=== PATIENT | female | born 1965 | race Caucasian/White ===

== ENCOUNTER → 2017-11-13 12:36 | Outpatient (CLI) | payer OTHER, SELFPAY ==
--- NOTE | 2017-11-13 12:43 | STE_ITS ---
Reason For Study: Chest Pain Stress Results Protocol: Crescencio Protocol Maximum Predicted HR: 168 bpm Target HR: 143 bpm% Max imum Predicted HR: 98 % DurationHeart Rate Stage (mm:ss) (bpm) BP Baseline 82 122/80 Crescencio Protocol Stage I 3:00 12 9 120/76 Crescencio Protocol Stage II 3:00 15 3 130/74 Crescencio Protocol Stage III 3:00 16 4 142/72 Crescencio Protocol Stage IV 0:01 16 4 / Recovery 104 118/7 2 Stress Duration: 9:01 mm:ss Maximum Stress HR: 164 bpmM ETS: 10 Baseline Echocardiogram Findings Stress Echo Wall motion Data Resting WMIntermediate WMStress WM Resting Wall Motion Wall Motion Stress No regional wall motion No regional wall motion abnormalities noted. abnormalities noted. Ejection Fraction 55 %. Ejection Fraction 70 %. Stress Results Normal blood pressure response to exercise. Exercise was stopped due to fatigue. EKG Data Baseline ECG demonstrates normal sinus rhythm with a rate of 72 beats per minute. The patient exercised according to the regular Crescencio protocol for a total duration of 9 min. The maximum heart rate attained was 166 beats per minute. This was 98% of maximum predicted heart rate. The patient exercised into stage 3 of the Crescencio protocol. During stress, there were no ST or T wave changes noted to suggest ischemia. At peak exercise, upsloping ST changes only were noted, which did not meet the criteria for ischemia. The peak blood pressure was 142/72. No arrhythmias noted. No clinical angina was noted. Interpretation Summary Normal resting LV systolic function. Nonstenotic valves. With stress, the LV size decreased and all segments augmented normally. The LVEF increased from 55% to 70%. Negative for ischemia at 98% of MPHR and at 10.1 METS. Normal stress echo at a high workload Ordering Physician: Jonny Fuentes Referring Physician: Andreas Coker MD Performed By: Bozena Valle, RDKRISTINE, RVT
== END ==
PROVIDERS: Family Provider Student in an Organized Health Care Education/Training Program; PCP Student in an Organized Health Care Education/Training Program; Visit Provider Internal Medicine Cardiovascular Disease
DX: R07.9 Chest pain, unspecified (principal); R06.02 Shortness of breath
CPT/HCPCS: 93017; 93350

== ENCOUNTER 2018-08-10 20:35 | Observation (INO) | payer OTHER, SELFPAY ==
[2018-08-10 20:36] VITALS: BP 131/86; PULSE 68; RESP 14; TEMP 36.7; O2SAT 98; BMI 25.6
[2018-08-10] MEDS: 0.9% Normal Saline 1,000 ML 999 ML IV (21:05)
[2018-08-10] MEDS: Ondansetron 4 MG/2 ML Vial IV (21:06)
[2018-08-10] MEDS: Morphine 4 MG/ML Syringe IV (21:08)
[2018-08-10 21:28] LABS: Absolute Lymphocyte Count 2.37 X10^3/ul (0.83-4.51); Basophil# 0.02 X10^3/uL; Basophil% 0.2 % (0-1); Eosinophil# 0.04 X10^3/uL; Eosinophils% 0.4 % (0-5); Hematocrit 42.5 % (37-47); Hemoglobin 14.2 g/dl (12.0-15.0); Lymphocyte # 2.37 X10^3/ul (4.0); Lymphocyte % 23.3 % (19-41); Mean Corp Hgb Conc 33.4 g/gl (32-36); Mean Corpuscular Hgb 30.9 pg (27.0-32.0); Mean Corpuscular Volume 92.4 fL (81-99); Mean Platelet Vol. 10.1 fl (6.2-12.0); Monocyte# 0.69 X10^3/uL; Monocyte% 6.8 % (0-10); Neutrophil # 7.02 X10^3/uL (2.7-7.7); Neutrophil % 69.2 % (47-70); POSITIVE COUNT NO; POSITIVE DIFFERENTIAL NO; POSITIVE MORPHOLOGY NO; Platelet Count 222 K/mm3 (150-450); RBC Distribution Width CV 13.6 % (11.6-14.6); White Blood Count 10.2 K/mm3 (4.4-11.0)
[2018-08-10 21:38] LABS: Anion Gap 9 (5-15); BUN 24 mg/dL (7-18); BUN/Creat Ratio 20.2 RATIO (10-20); Chloride 109 mmol/L (98-107); Creatinine, Serum 1.19 mg/dL (0.55-1.02); EST Glomerular Filtration Rate 50 mL/min (>60); Est Glom Filt Rate - Afr Amer 61 mL/min (>60); Glucose 106 mg/dL (74-106); Potassium 3.4 mmol/L (3.5-5.1); Sodium Level 146 mmol/L (136-145)
--- NOTE | 2018-08-10 21:47 | CT_ITS ---
STUDY: CT ABDOMEN AND PELVIS WITHOUT CONTRAST REASON FOR EXAM: Female, 53 years old. Left flank pain. RADIATION DOSAGE (If Supplied By Facility): CTDIvol = ( 6.96 ) mGy, DLP = ( 337.28 ) mGycm TECHNIQUE: Transaxial images were obtained from the dome of the diaphragm to the symphysis pubis without oral contrast, and without intravenous contrast. Sagittal and coronal images were reconstructed. Individualized dose optimization techniques were used for this CT. COMPARISON: January 14, 2017. FINDINGS: The visualized lung bases are unremarkable. The visualized portions of the heart are within normal limits. Normal liver. Normal gallbladder and extrahepatic biliary system. Normal spleen. Normal pancreas. Normal bilateral adrenal glands. The right left kidney is of normal size and cortical thickness. There are multiple nonobstructing left renal calculi. The largest in the lower pole measures 3 mm. There is no hydronephrosis. Normal visualized right ureter. The left kidney is of normal size and cortical thickness spared there are multiple small renal calculi in the upper pole. The largest measures 3 mm in diameter. There is diffuse left hydronephrosis and ureterectasis to the left pelvic sidewall where there is an obstructing 6 x 4 x 3 mm stone (image 132, series 2). Normal visualized stomach. Normal small intestine. Normal colon. The appendix is visualized and appears normal. Normal abdominal aorta. Normal inferior vena cava. Normal retroperitoneum. Normal urinary bladder. Uterus is retroverted but otherwise unremarkable. Normal adnexa. There is no pelvic lymphadenopathy. No free air or free fluid is seen within the peritoneal cavity. Normal abdominal wall. There is a exaggeration of the lumbar lordosis is with anterolisthesis of L5 on S1 of 1.3 cm. There is evidence of bilateral pars defects. Mild degenerative changes are also noted at L3-4 and L4-5. CT/Abdomen/Pelvis without Cont IMPRESSION: 1. Large calcification in distal left ureter with obstructive uropathy. 2. Multiple small bilateral nonobstructing renal calculi. 3. No other evidence of abdominal or pelvic abnormality. 4. Stable marked degenerative changes of the lumbar spine. Electronically Signed: Julio C Case DO at 22:42 EST Tel [phone], Service support ,
[2018-08-10] MEDS: HYDROmorphone 1 MG/ML Syringe IV (21:54)
[2018-08-10 21:56] VITALS: BP 124/84; PULSE 75; RESP 16; O2SAT 99
--- NOTE | 2018-08-10 23:10 | ED.DCSUM_ITS ---
- ER Visit Summary Date of Service: 08/10/18 Chief Complaint: Flank pain History of Present Illness: The patient is a 53 F with history of migraines and kidney stones presents to the emergency department flank pain. Patient states her symptoms began on Thursday. She states that she had intermittent pain in her left flank. She states that it acutely worsened tonight. She had nausea and vomiting. She states she cannot get comfortable. She denies any fevers or chills. She denies any dysuria. The patient has had prior stones requiring lithotripsy and stenting. She does see Dr. Brothers. Physical Examination: Vital signs reviewed General: Well-nourished, well-developed Head: Normocephalic, atraumatic Eyes: Pupils equal and reactive, extraocular muscles intact Neck, supple, no lymphadenopathy Heart: Regular rate and rhythm Respiratory: No distress, clear bilaterally Abdomen: Soft, nontender, nondistended, no peritoneal signs Back: Nontender Extremities: Nontender, no edema, no cords Skin: Normal color no rash Neuro: Alert and oriented, no focal or lateralizing deficits Test Results: [] Emergency Department Course and Treatment: IV was established. Patient was given analgesics and antiemetics. She did have some improvement of pain. Screening labs are relatively unremarkable. Patient underwent CT of the abdomen pelvis. This does demonstrate a 6 mm distal obstructing stone in the left. The patient a return of pain. She was given more analgesics but was still uncomfortable. The patient has required stenting and lithotripsy in the past. She is still uncomfortable with large obstructing stone, I do feel the patient will require admission. She was discussed with Dr. Brothers who agrees a plan of care. The patient will be admitted. Treatment Plan: [] Disposition: Admission Impression: 6 mm left-sided obstructing urolithiasis This note was generated with [employer] dictation software. It may contain incorrect words, spelling, and punctuation that were not noted in review of the chart prior to signing ED Disposition - Plan for ED Patient: Chief Complaint: Flank Pain Referrals: Jey Arthur DO [Primary Care Provider] -
[2018-08-10 23:29] LABS: Mucous, Urine 0 SEEN /hpf (<or=2+); Red Blood Cells-Urine 0 SEEN /hpf (0-5)
[2018-08-10 23:34] LABS: Color, Urine Yellow (Yellow); Glucose, Dipstick Normal (Normal); Ketone-Dipstick 5 mg/dl (Negative); Leukocyte Esterase-Dipstick 500 /ul (Negative); Nitrite-Dipstick Negative (Negative); Occult Blood-Urine 25 /ul (Negative); Protein-Dipstick 15 mg/dl (Negative); Urine Bilirubin Dipstick Negative (Negative); Urine Clarity Sl. Cloudy (Clear); Urine Urobilinogen Normal (Normal); Urine pH 6.5 (5.0 - 8.0)
[2018-08-10 23:37] VITALS: BP 113/74; PULSE 80; RESP 14; O2SAT 97
[2018-08-10 23:38] VITALS: BP 113/74; PULSE 80; RESP 16; TEMP 36.6; O2SAT 97
[2018-08-10 23:42] LABS: Squamous Epithelial Cells - UA 0-5 SEEN /hpf (5-10); White Blood Cells 10-25 SEEN /hpf (0-5)
[2018-08-10 23:43] LABS: Bacteria 1+ /hpf (None Seen)
[2018-08-11] VITALS (9 sets, daily range): BP systolic 101–126; BP diastolic 63–82; PULSE 64–87; RESP 12–16; TEMP 36–37.1; O2SAT 92–99; BMI 25.9
[2018-08-11] MEDS: 0.9% Normal Saline 1,000 ML 100 ML IV (01:06)
[2018-08-11] MEDS: 0.9% NaCl Peripheral Flush Adult/Peds IV (01:07)
[2018-08-11] MEDS: Ketorolac 15 MG/ML Vial IV (05:18)
--- NOTE | 2018-08-11 07:10 | CALC_PTH ---
PATIENT: RACHNA KHAN LOC: [facility] U#:[id number] AGE/SX: 53/F ROOM: NH313 RE08/10/[address]: Dr. Jerry Brothers MD : 1965 BED: 1 DIS: 08/11/2018 SPEC #: [id number] RECD: 08/11/18 14:36 STATUS: SAIGE REGarrick #: [id number] PHILIP: 08/11/18 07:[address]: Jerry Brothers DEPT: SURGICAL PATHOLOGY RECD BY: Donald Hinojosa ENTERED: 08/12/18 12:49 SP TYPE: Calculi OTHR DR: Dr. Jey Arthur, DO Tissues: CALCULI Procedures: Surgery Specimen Level I HEADER OPERATION: Cysto, ureteroscopy, balloon dilation, laser, basket extraction PRE-OP DIAGNOSIS: Left ureteral calculi TISSUE SUBMITTED: Left ureteral calculi GROSS DIAGNOSIS Fragments of stones, clinically left ureteral calculi, submitted entirely for analysis. SJ:fede 08/13/18 COMMENT The calculus is submitted in its entirety for chemical stone analysis. The results from this study will be reported separately. GROSS DESCRIPTION Received in fixative is one container labeled with the patient's name and designated left ureteral calculus. The specimen consists of multiple irregular fragments of light elliott calculi that in aggregate measure 0.5 x 0.2 x 0.1 cm. The fragments are submitted in their entirety for chemical stone analysis. / AM:fede 08/12/18 CPT: 52873
--- NOTE | 2018-08-11 07:27 | PCM.HP.STD ---
Problem List (1) Left ureteral calculus Status: Acute Comment: admitted for pain control large obstruction stone in left ureter History of Present Illness Date of Admission: 08/11/18 Chief Complaint: Left flank pain from left ureteral calculi The patient is a 53 year old female with a large obstruction ureteral calculi admitted for pain control, npo, plan to take to surgery today for ureteroscopy laser stone, possible stent? Past Medical History Allergies No Known Allergies Allergy (Verified 08/10/18 20:40) Home Medications: Ambulatory Orders Medication Instructions Recorded Aspirin [Aspirin, Baby] 81 mg PO QHS 01/15/17 Atorvastatin Calcium 20 mg PO QHS 01/15/17 Cholecalciferol (Vitamin D3) 1,000 unit PO QHS 01/15/17 [Vitamin D3] Magnesium 400 mg PO QHS 01/15/17 Rizatriptan Benzoate [Rizatriptan] 10 mg PO PRN PRN 01/15/17 Sumatriptan Succinate [Imitrex] 100 mg PO PRN PRN 01/15/17 Zonisamide [Zonegran] 300 mg PO DAILY 01/15/17 Verapamil HCl [Verapamil ER] 180 mg PO DAILY 08/11/18 Surgical History: noncontributory Psychiatric History: No pertinent psych hx 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 Smoking Status: Never smoker Tobacco Use: Non-smoker Alcohol: None Drugs: None - *Family History Maternal History Items: No pertinent history Review of Systems Constitutional: Denies: Chills, Fever, Weight Change HEENT: Denies: Head Aches, Sinus Congestion, Sinus Drainage Cardiovascular: Denies: Chest Pain, Palpitations Respiratory: Denies: Cough, Shortness of breath at rest, Sputum production Gastrointestinal: Denies: Abdominal Pain, Nausea, Vomiting Genitourinary: Denies: Dysuria Musculoskeletal: Denies: Joint Pain, Joint Tenderness Skin: Denies: Rash, Wounds Neurological: Denies: Numbness, Tingling, Focal weakness Psychiatric: Denies: Anxiety, Depression, Homicidal Ideations, Suicidal Ideations Hematologic/ Lymphatic: Denies: Easy Bruising, Easy Bleeding VTE Information - Inpt Only VTE Present on Admission: No VTE Mechan Device Prophylaxis: SCD's Patient Problems: Active and Suspected Problems Left ureteral calculus (Acute) admitted for pain control large obstruction stone in left ureter - Physical Exam General: Alert, Oriented x3, Cooperative HEENT: Atraumatic, PERRLA, EOMI, Normocephalic Neck: Supple, No JVD, Negative Carotid Bruits Lungs: Clear to auscultation, Normal air movement Cardiovascular: Regular rate, No murmurs Abdomen: Bowel Sounds Present, Soft, Non Tender Extremities: No edema, Capillary Refill Less than 3 Seconds Skin: No rashes, No breakdown Musculoskeletal: No Tenderness to Palpation of Joints or Extremities Neurological: Cranial nerves II-XII grossly intact Psych/Mental Status: Normal Affect, Appropriate Vital Signs Temp Pulse Resp BP Pulse Ox 98.6 F 65 12 111/64 92 08/11/18 05:11 08/11/18 05:11 08/11/18 05:11 08/11/18 05:11 08/11/18 05:11 Oxygen Flow Rate (L/min) 992 Oxygen Delivery Method Room Air Weight: 70.7 kg Body Mass Index (BMI) 25.9 Intake and Output for Last 24 Hours 08/09/18 08/10/18 08/11/18 23:59 23:59 23:59 Intake Total 478 / 478 Output Total 475 / 475 Balance 3 / 3 Laboratory Tests Past 24 Hrs 08/10/18 08/10/18 08/10/18 20:52 20:52 23:23 WBC 10.2 RBC 4.60 Hgb 14.2 Hct 42.5 MCV 92.4 MCH 30.9 MCHC 33.4 RDW 13.6 RDW Differential 46.0 H Plt Count 222 MPV 10.1 Immature Gran % (Auto) 0.100 Neut % (Auto) 69.2 Lymph % (Auto) 23.3 [place] % (Auto) 6.8 Eos % (Auto) 0.4 Baso % (Auto) 0.2 Absolute Neuts (auto) 7.0 Absolute Lymphs (auto) 2.37 Total Counted Not Reportable Sodium 146 H Potassium 3.4 L Chloride 109 H Carbon Dioxide 28.0 Anion Gap 9 BUN 24 H Creatinine 1.19 H Estim Creat Clear Calc 49.20 Est GFR (MDRD) Af Amer 61 Est GFR (MDRD) Non-Af 50 L BUN/Creatinine Ratio 20.2 H Glucose 106 Calcium 10.0 Urine Color Yellow Urine Clarity Sl. Cloudy Urine pH 6.5 Ur Specific Malott 1.020 Urine Protein 15 H Urine Glucose (UA) Normal Urine Ketones 5 H Urine Occult Blood 25 H Urine Nitrite Negative Urine Bilirubin Negative Urine Urobilinogen Normal Ur Leukocyte Esterase 500 H Urine RBC 0 SEEN Urine WBC 10-25 SEEN Ur Squamous Epith Cells 0-5 SEEN Urine Bacteria 1+ Urine Mucus 0 SEEN Assessment/Plan All Active Problems Left ureteral calculus (Acute) Admit for pain control plan to take to surgery today for laser and removal of stone if patient consents to procedure.
[2018-08-11] MEDS: Morphine 2 MG/ML Syringe IV (10:35)
[2018-08-11] MEDS: Lubricating Jelly 60 GM Tube 30 GM TOPICAL (11:25)
--- NOTE | 2018-08-11 11:28 | DCINST_ITS ---
Discharge Diet: Light diet - advance as tolerated Discharge Activity: Return to Normal Activity, May Shower Call your doctor if you observe: Fever of 101 or Higher Instructions: Treating Kidney Stones: Ureteroscopic Stone Removal Allergies/Adverse Reactions: Allergies No Known Allergies Allergy (Verified 08/10/18 20:40) Medications to take at Discharge Aspirin [Aspirin, Baby] 81 mg PO QHS 01/15/17 Atorvastatin Calcium 20 mg PO QHS 01/15/17 Cholecalciferol (Vitamin D3) [Vitamin D3] 1,000 unit PO QHS 01/15/17 Magnesium 400 mg PO QHS 01/15/17 Rizatriptan Benzoate [Rizatriptan] 10 mg PO PRN PRN 01/15/17 Sumatriptan Succinate [Imitrex] 100 mg PO PRN PRN 01/15/17 Zonisamide [Zonegran] 300 mg PO DAILY 01/15/17 Acetaminophen [Tylenol Extra Strength] 500 mg PO Q4H PRN PRN #20 tablet 08/11/18 Ibuprofen 600 mg PO Q6H PRN PRN #20 tablet 08/11/18 Verapamil HCl [Verapamil ER] 180 mg PO DAILY 08/11/18 The following prescriptions were given: Acetaminophen [Tylenol Extra Strength] 500 mg PO Q4H PRN PRN #20 tablet PRN Reason: Pain Ibuprofen 600 mg PO Q6H PRN PRN #20 tablet PRN Reason: Pain Primary Care Physician: Jey Arthur DO [Primary Care Provider] - Test Results: Test results from this visit will be discussed in further detail at your follow- up appointment, if applicable. Please Follow Up With: Jerry Brothers MD When: in 2 weeks, please call to make an appointment.
[2018-08-11] MEDS: Cefazolin 1 GM/50 ML BAG IV (11:40)
--- NOTE | 2018-08-11 11:46 | PCM.OPRPT ---
Problem List (1) Left ureteral calculus Status: Acute Comment: admitted for pain control large obstruction stone in left ureter Report of Operation Date of Procedure: 08/11/18 Pre-Operative Diagnosis: Left obstructive ureteral calculi Post-Operative Diagnosis: Same Surgery/Procedure Performed:: Cystoscopy, balloon dilation of the left ureter, left ureteroscopy laser lithotripsy of stone and basket of fragments. No stent Description of Surgical Findings:: 53-year-old female who presents to the hospital obstructing stone severe pain today we plan to take her to the operating room for ureteroscopy laser lithotripsy of the stone. 53-year-old male taken back to the operating room after smooth induction of anesthesia she placed in dorsolithotomy position the urethra vaginal area prepped and draped in usual sterile fashion went to the bladder with a 21 Yoruba rigid cystourethroscope the urethra was normal the trigone was normal the entire bladder was normal no tumors or stones seen within the bladder I think cannulated the left ureteral orifice with a Glidewire advanced beyond the stone and then next the wire I went in with the balloon dilator balloon dilated the distal ureter and then after this I was able to get into the ureter with the ureteroscope and encountered the stone and laser the stone little tiny pieces using 200 ?m laser fiber energy settings were 6 Hz and 0.6 J stone laser little tiny pieces I then used a tipless basket and extracted the fragments of the distal ureter drained the bladder the ureter was draining nicely and therefore it did not leave a stent drain the bladder anesthesia was reversed taken back to PACU good condition. Type of Anesthesia:: General Drains: none - Admit VTE Documentation VTE Present on Admission: No VTE Mechan Device Prophylaxis: SCD's
[2018-08-31 12:06] LABS: Ca Oxalate, Dihydrate 15 % (.); Ca Oxalate, Monohydrate 45 % (.); Calcium Phosphate 40 % (.)
--- OUTSIDE RECORDS SUMMARY | 2018-11-12 06:28 | XMS RPT_ITS ---
:1965 Author Organization OHIP Care Team Providers Name Role Phone Jey Marmolejo Primary Care Unavailable Jerry Brothers Admitting Unavailable Jerry Brothers Attending Unavailable Andreas Coker Attending Unavailable Jonny Jessica Referring Unavailable Jonny Jessica Attending Unavailable Jey Marmolejo Primary Care Unavailable Hershey, Jonny Referring Unavailable Jerry Brothersuel Attending Unavailable Jerry Brothers Referring Unavailable Marmolejo, Jey Primary Care Unavailable JASKARAN, JONNY E Attending Unavailable MARMOLEJO, JEY L Referring Unavailable JASKARAN, JONNY E Referring Unavailable JASKARAN, JONNY E Attending Unavailable JASKARAN, JONNY E Referring Unavailable KARSON CAMPBELL Attending Unavailable ARISTEO OLMEDO Attending Unavailable MARMOLEJO, JEY L Referring Unavailable CORNIELLO, PATTI L (MEETING SPECIALIST) Referring Unavailable CORNIELLO, PATTI L (MEETING SPECIALIST) Attending Unavailable JASKARAN, JONNY Attending Unavailable MARMOLEJO, JEY L Referring Unavailable MARMOLEJO, JEY L Primary Care Unavailable JASKARAN, JONNY Referring Unavailable MARMOLEJO, JEY L Primary Care Unavailable JASKARAN, JONNY Attending Unavailable JASKARAN, JONNY Referring Unavailable MARMOLEJO, JEY L Primary Care Unavailable JASKARAN, JONNY Attending Unavailable JASKARAN, JONNY Referring Unavailable MARMOLEJO, JEY L Primary Care Unavailable PROBLEMS PROBLEMS DATE TYPE CONDITION / CODE ATTENDING STATUS SOURCE 09/02/2018 Unknown N39.0 - Urinary tract Jerry Brothers Active [facility] infection, site not [facility] specified / Hospital N39.0(ICD-10) Repository 06/11/2018 Active Encounter for NA Active [place] [facility] for malignant [place] neoplasm of breast / Repository Z12.31(ICD-10) 12/09/2017 Unknown R07.9 - Chest pain, John Paul, Bailey Active [facility] unspecified / Community R07.9(ICD-10) Hospital Repository 11/13/2017 Unknown R06.02 - Shortness of Hershey, Active [facility] breath / Jonny Community R06.02(ICD-10) Hospital Repository 10/22/2017 Active Unknown / NA Active [facility] UNK(Unknown) [facility] [place] Repository 10/21/2017 Active Chest pain, JASKARAN, Active [facility] unspecified / JONNY E Clinic Other R07.9(ICD-10) [place] Repository 10/21/2017 Active Shortness of breath / JASKARAN, Active [facility] R06.02(ICD-10) JONNY E Clinic Other [place] Repository 09/18/2017 Active Supraventricular JASKARAN, Active [facility] tachycardia / JONNY E Clinic Other I47.1(ICD-10) [place] Repository 09/18/2017 Active Other chest pain / JASKARAN, Active [facility] R07.89(ICD-10) [facility] Other [place] Repository 09/18/2017 Admitting Unknown / JASKARAN, Active [facility] diagnosis UNK(Unknown) [facility] Repository PROCEDURES PROCEDURES No Procedure Records FoundRESULTS RESULTS Observed: 09/02/2018 Status: F Source: [facility] CULTURE, URINE 4:30 PM [facility] REPOSITORY Urine Culture Culture exhibits no growth. Performed By: #### M100.0650 #### [facility] [address] [place], [address] CALCULI, URINARY W / Collected: 08/23/2018 Status: F Source: [facility]YUSH PHOTO 1:10 PM [facility] REPOSITORY Order Comment: Comments: LEFT URETERAL CALCULI TYPE CODE TESTS RESULT OUT OF RANGE REFERENCE UNITS LAB L3650.0200 . Normal COLOR Elliott LAB L3650.0300 . mm Normal SIZE Comment Result Comment: Specimen received as fragments. LAB L3650.0400 . mg Normal WEIGHT 13.0 LAB L3650.0500 . Normal . Comment Result Comment: Percentage (Represents the % composition) LAB L3650.0600 . % CA OXAL DIHYDR 15 Normal LAB L3650.0700 . % CA OXAL 45 Normal [place]YD LAB L3650.0800 . % CA PHOSPHATE 40 Normal LAB L3650.0900 . MAG EAMON PHOS Test not Normal performed LAB L3650.1000 . URIC ACID Test not Normal performed LAB L3650.1100 . URIC ACID Test not Normal DIHYD performed LAB L3650.1200 . AMM ACID URATE Test not Normal performed LAB L3650.1300 . NA ACID URATE Test not Normal performed LAB L3650.1400 . CA HYDROG PHOS Test not Normal performed LAB L3650.1500 . CYSTINE Test not Normal performed LAB L3650.1600 . CHOLESTEROL Test not Normal performed LAB L3650.1700 . CA Test not Normal BILIRUBINATE performed LAB L3650.1800 . CA CARBONATE Test not Normal performed LAB L3650.1900 . TRIAMTERENE Test not Normal performed LAB L3650.2000 . NEWBERYITE Test not Normal performed LAB L3650.2100 . DRIED BLOOD Test not Normal performed LAB L3650.2200 . CELL MATERIAL Test not Normal performed LAB L3650.2250 . NIDUS No Nidus Normal visualized LAB L3650.2325 . SHELL Test not Normal performed LAB L3650.2350 . SURFACE Test not Normal CRYSTAL performed LAB L3650.2400 . COMMENT Test not Normal performed LAB L3650.2500 . COMMENT Test not Normal performed LAB L3650.2600 . PHOTO Comment Normal Result Comment: Photograph will follow under separate cover. LAB L3650.2700 . Normal COMMENT Comment Result Comment: Physician questions regarding Calculi Analysis contact [employer] at: [phone]. LAB L3650.2800 . Normal COMMENT Comment Result Comment: Calculi report with photograph will follow via computer, mail or soil science technical officer delivery. LAB L3650.2900 . Normal Disclaimer Comment Result Comment: This test was developed and its performance characteristics determined by [employer]. It has not been cleared or approved by the Food and Drug Administration. Performed at: [address] [id number] Product Manager Financial Services: Shahrzad Salter MD, Phone: [phone] Performed By: #### L3650.0100 #### [facility] (refer to report for specific site) refer to report for address and phone number OPERATIVE REPORT Observed: 08/11/2018 Status: F Source: FORBES 11:48 AM [facility] REPOSITORY [facility] Medical Records Department [address] [place] [address] Operative Report 08/11/18 1146 MR#: [id number] Acct: [id number] Name: RACHNA KHAN Nicanor Rep #: [id number] : 1965 53 From: Jerry Brothers MD PCP: Jey Siegel DO Status: ADM LANIE Y Location: [place] [id number] Problem List (1) Left ureteral calculus Status: Acute Comment: admitted for pain control large obstruction stone in left ureter Report of Operation Date of Procedure: 08/11/18 Pre-Operative Diagnosis: Left obstructive ureteral calculi Post-Operative Diagnosis: Same Surgery/Procedure Performed:: Cystoscopy, balloon dilation of the left ureter, left ureteroscopy laser lithotripsy of stone and basket of fragments. No stent Description of Surgical Findings:: 53-year-old female who presents to the hospital obstructing stone severe pain today we plan to take her to the operating room for ureteroscopy laser lithotripsy of the stone. 53-year-old male taken back to the operating room after smooth induction of anesthesia she placed in dorsolithotomy position the urethra vaginal area prepped and draped in usual sterile fashion went to the bladder with a 21 Azeri rigid cystourethroscope the urethra was normal the trigone was normal the entire bladder was normal no tumors or stones seen within the bladder I think cannulated the left ureteral orifice with a Glidewire advanced beyond the stone and then next the wire I went in with the balloon dilator balloon dilated the distal ureter and then after this I was able to get into the ureter with the ureteroscope and encountered the stone and laser the stone little tiny pieces using 200 m laser fiber energy settings were 6 Hz and 0.6 J stone laser little tiny pieces I then used a tipless basket and extracted the fragments of the distal ureter drained the bladder the ureter was draining nicely and therefore it did not leave a stent drain the bladder anesthesia was reversed taken back to PACU good condition. Type of Anesthesia:: General Drains: none - Admit VTE Documentation VTE Present on Admission: No VTE Mechan Device Prophylaxis: SCD's 08/11/18 1148 <Electronically signed by Jerry Brothers MD> Date Jerry Brothers MD CC: Jey Siegel DO; Jerry Brothers MD Signed DISCHARGE INSTRUCTION Observed: 08/11/2018 Status: F Source: FORBES 11:28 AM [facility] Medical Records Department [address] [place] [address] Instructions for Home/Discharge Instructions 08/11/18 1127 MR#: [id number] Acct: [id number] Name: RACHNA KHAN Rep #: [id number] : 1965 53 From: Jerry Brothers MD PCP: Jey Siegel DO Status: ADM LANIE Discharge Diet: Light diet - advance as tolerated Discharge Activity: Return to Normal Activity, May Shower Call your doctor if you observe: Fever of 101 or Higher Instructions: Treating Kidney Stones: Ureteroscopic Stone Removal Allergies/Adverse Reactions: Allergies No Known Allergies Allergy (Verified 08/10/18 20:40) Medications to take at Discharge Aspirin [Aspirin, Baby] 81 mg PO QHS 01/15/17 Atorvastatin Calcium 20 mg PO QHS 01/15/17 Cholecalciferol (Vitamin D3) [Vitamin D3] 1,000 unit PO QHS 01/15/17 Magnesium 400 mg PO QHS 01/15/17 Rizatriptan Benzoate [Rizatriptan] 10 mg PO PRN PRN 01/15/17 Sumatriptan Succinate [Imitrex] 100 mg PO PRN PRN 01/15/17 Zonisamide [Zonegran] 300 mg PO DAILY 01/15/17 Acetaminophen [Tylenol Extra Strength] 500 mg PO Q4H PRN PRN #20 tablet 08/11/18 Ibuprofen 600 mg PO Q6H PRN PRN #20 tablet 08/11/18 Verapamil HCl [Verapamil ER] 180 mg PO DAILY 08/11/18 The following prescriptions were given: Acetaminophen [Tylenol Extra Strength] 500 mg PO Q4H PRN PRN #20 tablet PRN Reason: Pain Ibuprofen 600 mg PO Q6H PRN PRN #20 tablet PRN Reason: Pain Primary Care Physician: Jey Marmolejo DO [Primary Care Provider] - Test Results: Test results from this visit will be discussed in further detail at your follow-up appointment, if applicable. Please Follow Up With: Jerry Brothers MD When: in 2 weeks, please call to make an appointment. 08/11/18 1128 <Electronically signed by Jerry Brothers MD> Date Jerry Brothers MD CC: Jey Siegel DO HISTORY AND PHYSICAL Observed: 08/11/2018 Status: F Source: AYUSH EXAM 7:30 AM [facility] REPOSITORY [facility] Medical Records Department [address] [place] [address] History and Physical 08/11/18 0727 MR#: [id number] Acct: [id number] Name: BILLRACHNA L Rep #: [id number] : 1965 53 From: Jerry Brothers MD PCP: Jey Siegel, DO Status: ADM LANIE Y Location: MS3 [id number] Problem List (1) Left ureteral calculus Status: Acute Comment: admitted for pain control large obstruction stone in left ureter History of Present Illness Date of Admission: 08/11/18 Chief Complaint: Left flank pain from left ureteral calculi The patient is a 53 year old female with a large obstruction ureteral calculi admitted for pain control, npo, plan to take to surgery today for ureteroscopy laser stone, possible stent? Past Medical History Allergies No Known Allergies Allergy (Verified 08/10/18 20:40) Home Medications: Ambulatory Orders Medication Instructions Recorded Aspirin [Aspirin, Baby] 81 mg PO QHS 01/15/17 Surgical History: noncontributory Psychiatric History: No pertinent psych hx INSURANCE APPRAISER History: No pertinent INSURANCE APPRAISER history Smoking Status: Never smoker Tobacco Use: Non-smoker Alcohol: None Drugs: None - *Family History Maternal History Items: No pertinent history Review of Systems Constitutional: Denies: Chills, Fever, Weight Change HEENT: Denies: Head Aches, Sinus Congestion, Sinus Drainage Cardiovascular: Denies: Chest Pain, Palpitations Respiratory: Denies: Cough, Shortness of breath at rest, Sputum production Gastrointestinal: Denies: Abdominal Pain, Nausea, Vomiting Genitourinary: Denies: Dysuria Musculoskeletal: Denies: Joint Pain, Joint Tenderness Skin: Denies: Rash, Wounds Neurological: Denies: Numbness, Tingling, Focal weakness Psychiatric: Denies: Anxiety, Depression, Homicidal Ideations, Suicidal Ideations Hematologic/ Lymphatic: Denies: Easy Bruising, Easy Bleeding VTE Information - Inpt Only VTE Present on Admission: No VTE Mechan Device Prophylaxis: SCD's Patient Problems: Active and Suspected Problems Left ureteral calculus (Acute) admitted for pain control large obstruction stone in left ureter - Physical Exam General: Alert, Oriented x3, Cooperative HEENT: Atraumatic, PERRLA, EOMI, Normocephalic Neck: Supple, No JVD, Negative Carotid Bruits Lungs: Clear to auscultation, Normal air movement Cardiovascular: Regular rate, No murmurs Abdomen: Bowel Sounds Present, Soft, Non Tender Extremities: No edema, Capillary Refill Less than 3 Seconds Skin: No rashes, No breakdown Musculoskeletal: No Tenderness to Palpation of Joints or Extremities Neurological: Cranial nerves II-XII grossly intact Psych/Mental Status: Normal Affect, Appropriate Vital Signs Temp Pulse Resp BP Pulse Ox 98.6 F 65 12 111/64 92 08/11/18 05:11 08/11/18 05:11 08/11/18 05:11 08/11/18 05:11 08/11/18 05:11 Oxygen Flow Rate (L/min) 992 Oxygen Delivery Method Room Air Weight: 70.7 kg Body Mass Index (BMI) 25.9 Intake and Output for Last 24 Hours Intake Total 478 / 478 Output Total 475 / 475 Balance 3 / 3 Laboratory Tests Past 24 Hrs Assessment/Plan All Active Problems Left ureteral calculus (Acute) Admit for pain control plan to take to surgery today for laser and removal of stone if patient consents to procedure. 08/11/18 0730 <Electronically signed by Jerry Brothers MD> Date Jerry Brothers MD Cosigner Signature: Date (if applicable) CC: Jey Siegel DO; Jerry Brothers MD Signed CALCULI/STONE Observed: 08/11/2018 Status: F Source: FORBES 7:10 AM [facility] REPOSITORY Patient: RACHNA KHAN : 1965 (53/F) Acct Num: [id number] Phys: Deneen DOCKERY,Jerry Davalos Unit Num: [id number] Loc: MS3 [id number] Specimen: [id number] Received: 08/11/18 1436 Spec Type: Calculi TISSUES 1 TISSUES: CALCULI COMMENT The calculus is submitted in its entirety for chemical stone analysis. The results from this study will be reported separately. GROSS DIAGNOSIS Fragments of stones, clinically left ureteral calculi, submitted entirely for analysis. SJ:fede 08/13/18 GROSS DESCRIPTION Received in fixative is one container labeled with the patient's name and designated left ureteral calculus. The specimen consists of multiple irregular fragments of light elliott calculi that in aggregate measure 0.5 x 0.2 x 0.1 cm. The fragments are submitted in their entirety for chemical stone analysis. / AM:rg 08/12/18 CPT: 08042 HEADER OPERATION: Cysto, ureteroscopy, balloon dilation, laser, basket extraction PRE-OP DIAGNOSIS: Left ureteral calculi TISSUE SUBMITTED: Left ureteral calculi Signed Marco Antonio Ferreira MD 08/13/18 <signature on file> Performed By: #### PCALC #### [facility] Laboratory [address] [facility] [place], [address] EMERGENCY DEPARTMENT Observed: 08/10/2018 Status: F Source: FORBES SUMMARY 11:31 PM [facility] REPOSITORY [facility] Medical Records Department [address] [facility] [place] [address] Emergency Department Summary 08/10/18 2309 MR#: [id number] Acct: [id number] Name: RACHNA KHAN Rep #: [id number] : 1965 53 From: Chris Prajapati MD PCP: Jey Siegel DO Status: REG ER - ER Visit Summary Date of Service: 08/10/18 Chief Complaint: Flank pain History of Present Illness: The patient is a 53 F with history of migraines and kidney stones presents to the emergency department flank pain. Patient states her symptoms began on Thursday. She states that she had intermittent pain in her left flank. She states that it acutely worsened tonight. She had nausea and vomiting. She states she cannot get comfortable. She denies any fevers or chills. She denies any dysuria. The patient has had prior stones requiring lithotripsy and stenting. She does see Dr. Brothers. Physical Examination: Vital signs reviewed General: Well-nourished, well-developed Head: Normocephalic, atraumatic Eyes: Pupils equal and reactive, extraocular muscles intact Neck, supple, no lymphadenopathy Heart: Regular rate and rhythm Respiratory: No distress, clear bilaterally Abdomen: Soft, nontender, nondistended, no peritoneal signs Back: Nontender Extremities: Nontender, no edema, no cords Skin: Normal color no rash Neuro: Alert and oriented, no focal or lateralizing deficits Test Results: [] Emergency Department Course and Treatment: IV was established. Patient was given analgesics and antiemetics. She did have some improvement of pain. Screening labs are relatively unremarkable. Patient underwent CT of the abdomen pelvis. This does demonstrate a 6 mm distal obstructing stone in the left. The patient a return of pain. She was given more analgesics but was still uncomfortable. The patient has required stenting and lithotripsy in the past. She is still uncomfortable with large obstructing stone, I do feel the patient will require admission. She was discussed with Dr. Brothers who agrees a plan of care. The patient will be admitted. Treatment Plan: [] Disposition: Admission Impression: 6 mm left-sided obstructing urolithiasis This note was generated with [employer] dictation software. It may contain incorrect words, spelling, and punctuation that were not noted in review of the chart prior to signing ED Disposition - Plan for ED Patient: Chief Complaint: Flank Pain Referrals: Jey Marmolejo, DO [Primary Care Provider] - What to do if you have Problems For any increased pain, shortness of breath, bleeding, nausea or vomiting, chest pain, or any unexpected problems, contact your Primary Care Provider. Call [facility] ([phone]) or report to the closest Emergency Room. Call 911 if necessary. 08/10/18 0191 <Electronically signed by Chris Prajapati MD> Date Chris Prajapati MD Cosigner Signature (If Indicated): Date CC: Jey Siegel DO URINALYSIS, COMPLETE Collected: 08/10/2018 Status: F Source: AYUSH 11:23 PM [facility] REPOSITORY Order Comment: Order Date: 08/10/18 How was Urine Obtained? CLEAN CATCH TYPE CODE TESTS RESULT OUT OF RANGE REFERENCE UNITS LAB L400.3000 Yellow COLOR Normal Yellow LAB L400.3050 Clear Normal CLARITY Sl. Cloudy LAB L400.3200 Normal mg/dl Normal GLUCOSE, UR Normal LAB L400.3300 Negative mg/dL Normal BILIRUBIN URINE Negative LAB L400.3400 Negative mg/dl High 5 KETONE UR LAB L400.3465 1.002-1.030 Normal SP.GR. DIPSTX 1.020 LAB L400.3550 5.0 - 8.0 pH UR Normal 6.5 LAB L400.3600 Negative mg/dl High PROT 15 DIPSTX LAB L400.3700 Normal mg/dl Normal UROBILI Normal LAB L400.3750 Negative Normal NITRITE UR Negative LAB L400.3780 Negative /ul High 25 OCCULT BLOOD-UR LAB L400.3800 Negative /ul High LEUK ESTERASE 500 LAB L400.4050 0-5 /hpf WBC Normal 10-25 SEEN LAB L400.4100 0-5 /hpf 0 Normal RBC-UA SEEN LAB L400.4150 5-10 /hpf SQUAM Normal EPI 0-5 SEEN LAB L400.4300 None Seen /hpf 1+ Normal BACTERIA LAB L400.4350 <or=2+ /hpf 0 Normal MUCUS, URINE SEEN Performed By: #### L400.0001 #### [facility] Laboratory [address] [facility] [place], [address] ABDOMEN/PELVIS WITHOUT Observed: 08/10/2018 Status: F Source: FORBES CONT 9:48 PM [facility] REPOSITORY [facility] Imaging Services [address] [place] [address] Abdomen/Pelvis without Cont MR#: [id number] Acct: [id number] Name: RACHNA KHAN Rep #: [id number] : 1965 F 53 From: Julio C Case DO PCP: Jey Siegel DO Status: REG ER Study: Abdomen/Pelvis without Cont Date of Exam: 08/10/18 Exam# [id number] Ordering Dr: Chris Prajapati MD STUDY: CT ABDOMEN AND PELVIS WITHOUT CONTRAST REASON FOR EXAM: Female, 53 years old. Left flank pain. RADIATION DOSAGE (If Supplied By Facility): CTDIvol = ( 6.96 ) mGy, DLP = ( 337.28 ) mGycm TECHNIQUE: Transaxial images were obtained from the dome of the diaphragm to the symphysis pubis without oral contrast, and without intravenous contrast. Sagittal and coronal images were reconstructed. Individualized dose optimization techniques were used for this CT. COMPARISON: January 14, 2017. FINDINGS: The visualized lung bases are unremarkable. The visualized portions of the heart are within normal limits. Normal liver. Normal gallbladder and extrahepatic biliary system. Normal spleen. Normal pancreas. Normal bilateral adrenal glands. The right left kidney is of normal size and cortical thickness. There are multiple nonobstructing left renal calculi. The largest in the lower pole measures 3 mm. There is no hydronephrosis. Normal visualized right ureter. The left kidney is of normal size and cortical thickness spared there are multiple small renal calculi in the upper pole. The largest measures 3 mm in diameter. There is diffuse left hydronephrosis and ureterectasis to the left pelvic sidewall where there is an obstructing 6 x 4 x 3 mm stone (image 132, series 2). Normal visualized stomach. Normal small intestine. Normal colon. The appendix is visualized and appears normal. Normal abdominal aorta. Normal inferior vena cava. Normal retroperitoneum. Normal urinary bladder. Uterus is retroverted but otherwise unremarkable. Normal adnexa. There is no pelvic lymphadenopathy. No free air or free fluid is seen within the peritoneal cavity. Normal abdominal wall. There is a exaggeration of the lumbar lordosis is with anterolisthesis of L5 on S1 of 1.3 cm. There is evidence of bilateral pars defects. Mild degenerative changes are also noted at L3-4 and L4-5. CT/Abdomen/Pelvis without Cont IMPRESSION: 1. Large calcification in distal left ureter with obstructive uropathy. 2. Multiple small bilateral nonobstructing renal calculi. 3. No other evidence of abdominal or pelvic abnormality. 4. Stable marked degenerative changes of the lumbar spine. Electronically Signed: Julio C Case DO at 22:42 EST Tel [phone], Service support , CC: Jey Siegel DO; Chris Prajapati MD Coal Carrier: Signed CBC W/DIFF, AUTOMATED Collected: 08/10/2018 Status: F Source: AYUSH 8:52 PM [facility] REPOSITORY TYPE CODE TESTS RESULT OUT OF RANGE REFERENCE UNITS LAB L100.1000 4.4-11.0 K/mm3 Normal WBC 10.2 LAB L100.1200 4.2-5.4 M/mm3 Normal RBC 4.60 LAB L100.1300 12.0-15.0 g/dl Normal HGB 14.2 LAB L100.1400 37-47 % Normal HCT 42.5 LAB L100.1500 81-99 fL Normal MCV 92.4 LAB L100.1600 27.0-32.0 pg Normal MCH 30.9 LAB L100.1700 32-36 g/gl Normal MCHC 33.4 LAB L100.1810 11.6-14.6 % Normal RDW CV 13.6 LAB L100.1820 35.1-43.9 fl High RDW SD 46.0 LAB L100.1900 150-450 K/mm3 Normal PLT 222 LAB L100.2000 6.2-12.0 fl Normal MPV 10.1 LAB L100.2100 47-70 % Normal NEUT% 69.2 LAB L100.2200 19-41 % Normal LY% 23.3 LAB L100.2300 0-10 % Normal MONO% 6.8 LAB L100.2400 0-5 % Normal EO% 0.4 LAB L100.2500 0-1 % Normal BASO% 0.2 LAB L100.2550 0.0-0.9 % Normal IM GRAN % 0.100 Result Comment: IG% - Immature Granulocytes (promyelocytes, myelocytes and metamyelocytes) > 1% indicates that a LEFT SHIFT is Present. LAB L100.2620 2.0-7.7 X10 3/uL Normal Absolute Neut 7.0 LAB L100.2720 0.83-4.51 X10 3/ul Normal Absolute Lymph 2.37 Performed By: #### L100.0100 #### [facility] [place], [address] BASIC METABOLIC Collected: 08/10/2018 Status: F Source: FORBES PROFILE ([facility]) 8:52 PM [facility] REPOSITORY TYPE CODE TESTS RESULT OUT OF RANGE REFERENCE UNITS LAB L501.0100 74-106 mg/dL Normal GLU 106 Result Comment: Fasting Glucose result from 100 to 125 mg/dL suggests IMPAIRED HOMEOSTASIS per A.D.A. criteria. Please note revised GLUCOSE reference range effective 2017. LAB L501.1000 7-18 mg/dL High BUN 24 LAB L501.1100 0.55-1.02 mg/dL High CREAT,SERUM 1.19 Result Comment: The validity of the calculated GFR AND GFRAA in patients over 70 years has not been determined. Clinical correlation is essential. LAB L501.1110 >60 mL/min Low EST GFR 50 Result Comment: Non- GFR Calc LAB L501.1115 >60 mL/min Normal EST GFR - AA 61 Result Comment: GFR Calc LAB L501.1255 ml/min Normal Estimated CRCL 49.20 LAB L501.1300 10-20 RATIO High BUN/CRE 20.2 LAB L501.2200 8.5-10 mg/dL Normal .1 CA 10.0 LAB L501.5300 136-14 mmol/L High 5 NA 146 LAB L501.5600 3.5-5. mmol/L Low 1 K 3.4 LAB L501.5900 98-107 mmol/L High CL 109 LAB L501.6100 21.0-3 mmol/L Normal 2.0 CO2 28.0 LAB L501.6200 5-15 Normal GAP 9 Performed By: #### L500.2500 #### [facility] [address] [place], [address] PROGRESS Observed: 06/28/2018 Status: COMPLETED Source: [place] 3:[address] [facility] REPOSITORY O ID: [id number] Author: Lilo Ogden Apn Student Service: (none) Author Type: (none) Type: Progress Notes Filed: 06/28/2018 4:18 PM Note Text: This note was created using NoteWriter. Subjective Rachna Khan is a 53 year old female. The history is provided by the patient. Vaginal Bleeding This is a new problem. The current episode started 1 to 4 weeks ago. The problem occurs daily. Associated symptoms include abdominal pain and a change in bowel habit. Pertinent negatives include no anorexia, arthralgias, chills, diaphoresis, fever, rash or vomiting. She has tried NSAIDs, rest and sleep for the symptoms. The treatment provided no relief. UTI Associated symptoms include urgency. Pertinent negatives include no chills and no vomiting. Review of Systems Constitutional: Negative for chills, diaphoresis and fever. Respiratory: Negative. Cardiovascular: Negative. Gastrointestinal: Positive for abdominal pain and change in bowel habit. Negative for anorexia and vomiting. Genitourinary: Positive for dysuria, pelvic pain, urgency and vaginal bleeding. Musculoskeletal: Negative for arthralgias. Skin: Negative for rash. Objective BP 116/62 (BP Site: Right Arm, BP Position: Sitting, BP Cuff Size: Regular Adult) Pulse 62 Temp 36.2 ?C (97.2 ?F) (Tympanic) Resp 14 Wt 69.4 kg (153 lb) LMP 05/21/2015 SpO2 99% BMI 26.26 kg/m? Physical Exam Constitutional: Vital signs are normal. Cardiovascular: Regular rhythm, S1 normal, S2 normal, normal heart sounds and normal pulses. Pulmonary/Chest: Effort normal and breath sounds normal. Abdominal: Soft. Normal appearance and bowel sounds are normal. She exhibits no shifting dullness, no distension, no pulsatile liver, no fluid wave, no abdominal bruit, no ascites, no pulsatile midline mass and no mass. There is no hepatosplenomegaly, splenomegaly or hepatomegaly. There is no tenderness. There is no rigidity, no rebound, no guarding, no CVA tenderness, no tenderness at McBurney's point and negative Singh's sign. ASSESSMENT/PLAN: 1. Urinary tract infection with hematuria, site unspecified - ICD9: 599.0, 599.70, ICD10: N39.0, R31.9 acute - UA positive for carrol esterase, hematuria, proteinuria and nitrates - Send urine for culture - Begin treatment with Bactrim DS BID for 5 days - Patient education for prevention given - UA DIP B/O - URINE CULTURE - SULFAMETHOXAZOLE 800 MG-TRIMETHOPRIM 160 MG TABLET - URINALYSIS WITH MICROSCOPIC Patti Ivan APRN.CNP URINALYSIS WITH Collected: 06/28/2018 Status: F Source: [place] MICROSCOPIC 3:12 PM [facility] REPOSITORY TYPE CODE TESTS RESULT OUT OF RANGE REFERENCE UNITS LAB UCOL Yellow Color Abnormal Miroslava Alert LAB [facility] Clear Clarity Abnormal Cloudy Alert LAB UGLUC Negative mg/dL Glucose, Urine Negative LAB UBIL Negative Bilirubin, Urine Negative LAB UKET Negative Ketones, Urine Negative LAB USPG 1.005-1.030 Specific [place], Ur 1.016 LAB UHGB Negative Abnormal Hemoglobin/Blood, 2+ Alert Ur LAB UPH 4.5-8.0 pH 6.0 LAB UPROT Negative mg/dL Protein, Abnormal Urine 100 Alert LAB UUROB Normal Urobilinogen Normal LAB UNITR Negative Nitrites Abnormal Positive Alert LAB ULKEST Negative Leukest Abnormal 1+ Alert LAB UCOM Comments SEE COMMENT Result Comment: N/A LAB UMCOM Urine SEE Scott Comment COMMENT Result Comment: Result rechecked. Questionable Urine Chemistry Results LAB UWBC 0-5 /HPF Abnormal WBC Alert >25 LAB URBC 0-3 /HPF Abnormal RBC Alert >25 LAB UCRYS 0 /HPF Abnormal Alert Crystals SEE COMMENT Result Comment: Few Calcium Oxalate Crystal Performed By: #### UAWMIC #### [facility] [employer] [address] [place], [place] [address] Observed: 06/28/2018 Status: F Source: [place] URINE CULTURE 3:12 PM [facility] REPOSITORY Sp. Request/Comment: - Specimen received in preservative Culture Result - <10,000 CFU/ml Gram negative bacilli --> ABNORMAL ALERT Insignificant colony count. No further workup. --> ABNORMAL ALERT <10,000 CFU/ml Normal urogenital edi Performed By: #### URCUL #### [facility] [employer] [address] [place], [place] [address] CNOV Observed: 06/28/2018 Status: COMPLETED Source: [place] 3:00 PM [facility] REPOSITORY Office Visit (FAMPWS) RACHNA KHAN ([id number]) 1965 F Date Time Provider Department 06/28/18 3:00 PM MARIO PATTI L ([facility]) FAMGeorgeWS During your visit today, we recorded the following information about you: Temperature Pulse Respiration Blood pressure 97.2 degrees 62/minute 14/minute 116/62 Weight 69.4 kg Lilo Ogden Music Journalist Student 06/28/2018 4:01 PM Signed This note was created using CLIPPATEriter. Subjective Rachna Khan is a 53 year old female. The history is provided by the patient. Vaginal Bleeding This is a new problem. The current episode started 1 to 4 weeks ago. The problem occurs daily. Associated symptoms include abdominal pain and a change in bowel habit. Pertinent negatives include no anorexia, arthralgias, chills, diaphoresis, fever, rash or vomiting. She has tried NSAIDs, rest and sleep for the symptoms. The treatment provided no relief. UTI Associated symptoms include urgency. Pertinent negatives include no chills and no vomiting. Review of Systems Constitutional: Negative for chills, diaphoresis and fever. Respiratory: Negative. Cardiovascular: Negative. Gastrointestinal: Positive for abdominal pain and change in bowel habit. Negative for anorexia and vomiting. Genitourinary: Positive for dysuria, pelvic pain, urgency and vaginal bleeding. Musculoskeletal: Negative for arthralgias. Skin: Negative for rash. Objective BP 116/62 (BP Site: Right Arm, BP Position: Sitting, BP Cuff Size: Regular Adult) Pulse 62 Temp 36.2 ?C (97.2 ?F) (Tympanic) Resp 14 Wt 69.4 kg (153 lb) LMP 05/21/2015 SpO2 99% BMI 26.26 kg/m? Physical Exam Constitutional: Vital signs are normal. Cardiovascular: Regular rhythm, S1 normal, S2 normal, normal heart sounds and normal pulses. Pulmonary/Chest: Effort normal and breath sounds normal. Abdominal: Soft. Normal appearance and bowel sounds are normal. She exhibits no shifting dullness, no distension, no pulsatile liver, no fluid wave, no abdominal bruit, no ascites, no pulsatile midline mass and no mass. There is no hepatosplenomegaly, splenomegaly or hepatomegaly. There is no tenderness. There is no rigidity, no rebound, no guarding, no CVA tenderness, no tenderness at McBurney's point and negative Singh's sign. ASSESSMENT/PLAN: 1. Urinary tract infection with hematuria, site unspecified - ICD9: 599.0, 599.70, ICD10: N39.0, R31.9 acute - UA positive for carrol esterase, hematuria, proteinuria and nitrates - Send urine for culture - Begin treatment with Bactrim DS BID for 5 days - Patient education for prevention given - UA DIP B/O - URINE CULTURE - SULFAMETHOXAZOLE 800 MG-TRIMETHOPRIM 160 MG TABLET - URINALYSIS WITH MICROSCOPIC Patti Ivan APRN.MEETING SPECIALIST Referring Provider: SELF [[id number]] Allergies As of Date: 06/28/2018 Noted Allergy Reaction SEASONAL ALLERGIES 11/30/2012 3 - Cough Date Reviewed: 06/28/2018 Reviewed by: Audra Cormier Calender Machine Operator Helper - Fully Assessed Reason for Visit: Vaginal Bleeding [203] Cmt: x 4am today UTI [116] Cmt: bladder pressure x 2 days Reason For Visit History Recorded Primary Visit Diagnosis:Urinary tract infection with hematuria, site unspecified [N39.0, R31.9] Order(s):UA DIP B/O [3636282] Order #: [id number] URINE CULTURE [SQURCUL] Order #: [id number] sulfamethoxazole-trimethoprim (BACTRIM DS,SEPTRA DS) 800-160 mg per tabletTake 1 tablet by mouth twice daily for 5 days.Disp: 10 tabletRfl: 0 URINALYSIS WITH MICROSCOPIC [SQUAWMIC] Order #: [id number] Prescriptions as of 06/28/2018 Sig: ZONISAMIDE 100 MG CAPSULE TAKE 3 CAPSULES ONCE DAILY VERAPAMIL ER (SR) 180 MG TABL* Take 1 tablet by mouth once d* ATORVASTATIN 20 MG TABLET Take 1 tablet by mouth once d* MAGNESIUM OXIDE 400 MG (241.3* Take 0.5 tablets by mouth onc* Patient taking differently: Take 200 mg by mouth once melvina* CHOLECALCIFEROL (VITAMIN D3) * Take 1 tablet by mouth once d* SUMATRIPTAN 100 MG TABLET Take 1 tablet by mouth as nee* RIZATRIPTAN 10 MG TABLET TAKE DIRECTED ASPIRIN 81 MG TABLET,DELAYED * Take 1 tablet by mouth once d* SULFAMETHOXAZOLE 800 MG-TRIME* Take 1 tablet by mouth twice * Problem List As Of Date 06/28/2018 Noted Resolved Migraine without aura [G43.009] INVALID FOR* Chronic fibrocystic breast disease in female [N*INVALID FOR* PAC (premature atrial contraction) [I49.1] INVALID FOR* 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 Encounter Status:Closed by PATTI IVAN CNP on 06/28/18 CNCO Observed: 06/11/2018 Status: COMPLETED Source: [place] 2:24 PM [facility] REPOSITORY HNO ID: [id number] Author: Mammography Coordinator Service: (none) Author Type: Physician Type: Letter Filed: 06/14/2018 11:33 PM Note Text: June 11, 2018 PID: [id number] Rachna Khan [address] [place] [address] Dear Ms. Khan, We are pleased to inform you that the results of your recent breast imaging exam on 06/11/2018 are normal. Your mammogram demonstrates that you have dense breast tissue, which could hide abnormalities. Dense breast tissue, in and of itself, is a relatively common condition. Therefore, this information is not provided to cause undue concern; rather, it is to raise your awareness and promote discussion with your health care provider regarding the presence of dense breast tissue in addition to other risk factors. Early detection of cancer is very important. We also understand recommendations regarding breast cancer screening are controversial. Please discuss with your primary care provider which strategy is best for you and whether a mammogram is right for you. Your imaging studies and report will be kept on file at [facility] as part of your permanent medical record and are available for your continuing care. Thank you for allowing us to help in meeting your health care needs. Sincerely, Dr. Wolf Interpreting Radiologist [facility] (Normal over 40) GERDA SCREENING Observed: 06/11/2018 Status: F Source: [place] 10:23 AM [facility] REPOSITORY * * *Final Report* * * DATE OF EXAM: Jun 11 2018 10:23AM [facility] 0581 - GERDA SCREENING / PROCEDURE REASON: Encounter for screening mammogram for malignant neoplasm of breast * * * * Physician Interpretation * * * * RESULT: #[id number] - GERDA SCREENING BILATERAL DIGITAL SCREENING MAMMOGRAM WITH CAD: 06/11/2018 HISTORY: Screening Mammogram - patient reports NO breast symptoms /priors available for comparison. RESULT: TECHNIQUE: The study was acquired using full field digital technology and interpreted from soft copy. Current study was also evaluated with a Computer Aided Detection (CAD). Comparison is made to exams dated: 09/26/2016 mammogram and 06/12/2015 mammogram - [facility]. The tissue of both breasts is heterogeneously dense. This may lower the sensitivity of mammography. No significant masses, calcifications, or other findings are seen in either breast. There has been no significant interval change. IMPRESSION: NEGATIVE There is no mammographic evidence of malignancy.A 1 year screening mammogram is recommended. Jesusita abraham/leighton:06/11/2018 14:24:41 Front Office Assistant: Briana Daily RT(Ai)(Kait), [facility] letter sent: Normal over 40 Mammogram BI-RADS: 1 Negative Multiple national specialty organizations have released breast cancer screening guidelines for women at average risk for developing breast cancer - guidelines that are based on both evidence and opinion, yet differ on when to start and how often to screen for breast cancer. With representation from Breast Imaging, Internal Medicine, Women's Health, Family Medicine, and Medical/Surgical Oncology, the [facility] has carefully reviewed the data and reached the following consensus: 1) All women should engage in shared decision-making with their providers to decide when to start and how often to screen; 2) All women should have the opportunity to start screening mammography at age 40; 3) For women ages 45-55, we recommend annual screening mammograms; 4) For women ages 55 and over, we support both the transition from an annual to a biennial interval if this aligns more with patient's values and preferences, or continuation with annual screening; 5) All women should discuss with their providers when to stop screening mammograms. Coal Carrier: Leighton Transcribe Date/Time: Jun 11 2018 10:02A Dictated by: JESUSITA WOLF MD This examination was interpreted and the report reviewed and electronically signed by: JESUSITA WOLF MD on Jun 11 2018 2:24PM EST [id number] PROGRESS Observed: 06/11/2018 Status: COMPLETED Source: [place] 10:04 AM [facility] REPOSITORY HNO ID: [id number] Author: Audra Landry Service: (none) Author Type: (none) Type: Progress Notes Filed: 06/11/2018 10:04 AM Note Text: Radiology Service Progress Note PATIENT NAME: Rachna Khan DATE OF SERVICE: June 11, 2018 TIME: 10:04 AM PATIENT IDENTITY VERIFICATION COMPLETED USING TWO (2) METHODS: Patient confirmed name verbally and Date of . PATIENT GENDER DATA: Female. status: : No status: NO. PATIENT RELEVANT IMPLANT DATA REVIEWED: Not Applicable RADIOLOGY DEPARTMENT: Women's [facility] DATA: Not applicable SIGNED BY: Audra Landry June 11, 2018 10:04 AM CNOV Observed: 12/01/2017 Status: COMPLETED Source: [place] 8:30 AM [facility] REPOSITORY Office Visit (ALLMED) RACHNA KHAN ([id number]) 1965 F Date Time Provider Department 12/01/17 8:30 AM ARISTEO OLMEDO During your visit today, we recorded the following information about you: Pulse Respiration Blood pressure Weight 81/minute 16/minute 108/80 69.9 kg Height 1.626 m Nidia Medina RN 12/01/2017 8:34 AM Signed Patient was doing honey bee sting therapy for migraines, which was helping. On 5th sting she developed swelling left eye 24 hours after sting. Then went to right eye. Was treated with prednisone. Last sting Oct 20 on back of head/behind ears. Aristeo Olmedo MD 12/02/2017 9:36 AM Signed This is a consultation requested by Dr. Marmolejo for an allergy and immunology evaluation. My final recommendations will be communicated back to the requesting physician by way of shared medical record or letter to requesting physician via US mail. Rachna Khan is a 52 year old female who presents for further evaluation of adverse reaction to honeybee stings. She has been recently began treatment with honeybee stings to help decrease migraine WHITTAKER. Honeybee stings initially one per visit, now 2 per visit, weekly. Most recently, for her 5th treatment, she had 2 honeybee stings on October 20, 2017. She believes one sting was on the top of her head and the other was in the occipital region. Denies developing symptoms within 2 hours of the stings. Approx 24 hours after the stings, she noted swelling of the left upper and lower eyelids. She took Benadryl and applied cold compresses. Swelling increased further over the next 24 housr;her left eye was ANDquot;almost swollen shut,ANDquot; and swelling extended to involve the right eyelids and the left cheek. She took prednisone with resolution of symptoms in 3-4 days. No subsequent stings. For the prior treatment, she had received 2 stings behind the ears. She developed significant swelling and erythema at the sting site behind the right ear. She has never experienced urticaria, swelling of the tongue or throat, difficulty breathing, lightheadedness or loss of consciousness following stings. She does not have epinephrine autoinjectors on hand. She feels the honeybee therapy has been effective for decreasing her migraine headaches. She has nasal congestion, rhinorrhea and sneezing occurring in the spring. The symptoms are mild and she takes wwew-yxv-txvveky medications as needed with relief. No prior allergy testing or allergy immunotherapy. REVIEW OF SYSTEMS: SINUSITIS: The patient does not suffer from frequent sinopulmonary infections. ASTHMA: The patient has no history of asthma. ECZEMA: The patient has no history of eczema. URTICARIA:The patient does not have a history of urticaria and/or angioedema. GERD: The patient does not have a history of GERD. INSECT STING: See [place] FOOD ALLERGY:The patient denies history of food allergy. LATEX: The patient does not have a history of adverse reaction to latex. All other review of systems negative except for those listed above. PAST MEDICAL HISTORY Diagnosis Date - Degenerative disc disease lumbar - High cholesterol - HTN (hypertension) d/t SVT - Hypoglycemia - Kidney stone - Migraine headache - PMDD (premenstrual dysphoric disorder) - Premature atrial contraction - Sleep disorder Insomnia - Spondylolisthesis lumbar - SVT (supraventricular tachycardia) ([facility]) s/p AVNRT ablation at [facility], Dr. Herzog [facility] MEDICATIONS: verapamil SR (CALAN SR, ISOPTIN SR) 180 mg CR tablet Take 1 tablet by mouth once daily. atorvastatin (LIPITOR) 20 mg tablet Take 1 tablet by mouth once daily. magnesium oxide (MAG-OX) 400 mg tablet Take 0.5 tablets by mouth once daily. cholecalciferol (VITAMIN D3) 2,000 unit tablet Take 1 tablet by mouth once daily. SUMAtriptan (IMITREX) 100 mg tablet Take 1 tablet by mouth as needed. at onset of headache. May repeat after 2 hours. rizatriptan (MAXALT) 10 mg tablet TAKE DIRECTED zonisamide (ZONEGRAN) 100 mg capsule Take 3 capsules by mouth once daily. aspirin, enteric coated (ECOTRIN LOW STRENGTH) 81 mg EC tablet Take 1 tablet by mouth once daily. ALLERGIES: Allergies As of Date: 12/01/2017 Allergen Noted Reaction SEASONAL ALLERGIES 11/30/2012 Cough Fully Assessed 12/01/2017 PAST SURGICAL HISTORY Procedure Laterality Date - APPENDECTOMY 2003 - CYSTO W/URET STENT INSERTION - PAST SURGICAL HISTORY OF AVNRT ablation 03/2013 - TONSILLECTOMY HX age 20 FAMILY HISTORY: Allergic rhinitis:yes: mom. Asthma: no. Eczema: no. Cystic fibrosis: no. Immunodeficiency: no. 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 Pets in the home: 2 cats, 2 dogs Outdoor animals: 2 horses Tobacco smoke: No exposure in the home. Physical Exam: GENERAL APPEARANCE:Well appearing, alert, in no acute distress, well-hydrated, well nourished. HEENT: NCAT. EYES: conjunctiva and sclera normal. EARS: External ears normal. Canals clear. TM's normal. THROAT: no erythema NECK:neck supple, no adenopathy HEART:RRR with normal S1 and S2 ,no murmurs, no gallops, no rubs LUNGS: clear to auscultation bilaterally, no wheezes, rales or rhonchi ABDOMEN:soft, nontender, nondistended, without organomegaly or palpable masses EXTREMITIES:Extremities normal, No deformities, No skin discoloration and No edema SKIN: Skin color, texture, turgor normal. No rashes or lesions. ASSESSMENT/PLAN: 1.) Toxic effect venom: Patient with a history of delayed onset angioedema following honeybee stings. She will likely continue to have significant swelling with subsequent stings. She is at 3-10% risk of developing more severe allergic/sytemic reaction with subsequent stings. Recommend that she discontinue the honeybee treatment for migraine headaches as recurrent stings will increase her risk of developing a severe immediate systemic or anaphylactic reaction to subsequent stings. Insect sting avoidance measures. Venom allergy testing and venom immunotherapy are not indicated at this time. If patient decides to continue with honeybee sting treatment to prevent migraine headaches (AGAINST MEDICAL ADVICE), she should have epinephrine autoinjectors and Benadryl or Zyrtec available at all times in case of systemic reaction. Treatment of local reactions including application of cold compresses, taking oral antihistamine and elevation of the affected extremity were discussed. If swelling is severe, a short course of systemic corticosteroids may be warranted. 2.) Discussed medication dosage, usage, side effects, and goals of treatment in detail. 3.) Follow-up in PRN - patient will return sooner should new symptoms or problems arise. MD Aristeo Sarkar MD 12/01/2017 9:00 AM Signed Discontinue honeybee therapy If you are stung and have local swelling, take cetirizine 10 mg (zyrtec) one tablet twice a day. You may also take benadryl 25 mg one to two tablets every 6 hours as needed. If you develop severe symptoms such as difficulty breathing, sensation of throat closure, lightheadedness following a sting, seek emergent medical care and take zyrtec 10 mg or benadryl 50 mg Referring Provider: JEY MARMOLEJO [[id number]] Allergies As of Date: 12/01/2017 Noted Allergy Reaction SEASONAL ALLERGIES 11/30/2012 3 - Cough Date Reviewed: 12/01/2017 Reviewed by: Aristeo Olmedo - Fully Assessed Reason for Visit: New Patient [172] Cmt: bee sting allergy Primary Visit Diagnosis:Toxic effect of venom, accidental or unintentional, subsequent encounter [T63.91XD] Prescriptions as of 12/01/2017 Sig: VERAPAMIL ER (SR) 180 MG TABL* Take 1 tablet by mouth once d* ATORVASTATIN 20 MG TABLET Take 1 tablet by mouth once d* MAGNESIUM OXIDE 400 MG TABLET Take 0.5 tablets by mouth onc* Patient taking differently: Take 200 mg by mouth once melvina* CHOLECALCIFEROL (VITAMIN D3) * Take 1 tablet by mouth once d* SUMATRIPTAN 100 MG TABLET Take 1 tablet by mouth as nee* RIZATRIPTAN 10 MG TABLET TAKE DIRECTED ZONISAMIDE 100 MG CAPSULE Take 3 capsules by mouth once* ASPIRIN 81 MG TABLET,DELAYED * Take 1 tablet by mouth once d* Problem List As Of Date 12/01/2017 Noted Resolved Migraine without aura [G43.009] INVALID FOR* Chronic fibrocystic breast disease in female [N*INVALID FOR* PAC (premature atrial contraction) [I49.1] INVALID FOR* 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 You may also take benadryl 25 mg one to two tablets every 6 hours as needed. If you develop severe symptoms such as difficulty breathing, sensation of throat closure, lightheadedness following a sting, seek emergent medical care and take zyrtec 10 mg or benadryl 50 mg Visit Notes: >> Nidia Medina RN ThuDec 01, 2017 8:18 AM Status: Signed Patient was doing honey bee sting therapy for migraines, which was helping. On 5th sting she developed swelling left eye 24 hours after sting. Then went to right eye. Was treated with prednisone. Last sting Oct 20 on back of head/behind ears. Medications Discontinued During This Encounter meloxicam (MOBIC) 15 mg tablet 30 t* 1 09/03/2016 12/01/2017 Route: ORAL Sig: Take 1 tablet by mouth once daily. Take with food. Disc: Discontinued by Patient predniSONE (DELTASONE) 5 mg tablet 55 t* 0 10/23/2017 12/01/2017 Sig: Take ten tabs by mouth on day one and reduce by one a day till done. Disc: Course of therapy completed Follow-up and Disposition History Recorded Encounter Status:Closed by ARISTEO OLMEDO MD on 12/02/17 PROGRESS Observed: 12/01/2017 Status: COMPLETED Source: [place] 8:19 AM [facility] REPOSITORY O ID: [id number] Author: Aristeo Olmedo Service: (none) Author Type: Physician Type: Progress Notes Filed: 12/02/2017 9:36 AM Note Text: This is a consultation requested by Dr. Marmolejo for an allergy and immunology evaluation. My final recommendations will be communicated back to the requesting physician by way of shared medical record or letter to requesting physician via US mail. Rachna Khan is a 52 year old female who presents for further evaluation of adverse reaction to honeybee stings. She has been recently began treatment with honeybee stings to help decrease migraine WHITTAKER. Honeybee stings initially one per visit, now 2 per visit, weekly. Most recently, for her 5th treatment, she had 2 honeybee stings on October 20, 2017. She believes one sting was on the top of her head and the other was in the occipital region. Denies developing symptoms within 2 hours of the stings. Approx 24 hours after the stings, she noted swelling of the left upper and lower eyelids. She took Benadryl and applied cold compresses. Swelling increased further over the next 24 housr;her left eye was almost swollen shut, and swelling extended to involve the right eyelids and the left cheek. She took prednisone with resolution of symptoms in 3-4 days. No subsequent stings. For the prior treatment, she had received 2 stings behind the ears. She developed significant swelling and erythema at the sting site behind the right ear. She has never experienced urticaria, swelling of the tongue or throat, difficulty breathing, lightheadedness or loss of consciousness following stings. She does not have epinephrine autoinjectors on hand. She feels the honeybee therapy has been effective for decreasing her migraine headaches. She has nasal congestion, rhinorrhea and sneezing occurring in the spring. The symptoms are mild and she takes [id number] medications as needed with relief. No prior allergy testing or allergy immunotherapy. REVIEW OF SYSTEMS: SINUSITIS: The patient does not suffer from frequent sinopulmonary infections. ASTHMA: The patient has no history of asthma. ECZEMA: The patient has no history of eczema. URTICARIA:The patient does not have a history of urticaria and/or angioedema. GERD: The patient does not have a history of GERD. INSECT STING: See [place] FOOD ALLERGY:The patient denies history of food allergy. LATEX: The patient does not have a history of adverse reaction to latex. All other review of systems negative except for those listed above. PAST MEDICAL HISTORY Diagnosis Date - Degenerative disc disease lumbar - High cholesterol - HTN (hypertension) d/t SVT - Hypoglycemia - Kidney stone - Migraine headache - PMDD (premenstrual dysphoric disorder) - Premature atrial contraction - Sleep disorder Insomnia - Spondylolisthesis lumbar - SVT (supraventricular tachycardia) ([facility]) s/p [facility]NRT ablation at [facility], [facility] MEDICATIONS: verapamil SR (CALAN SR, ISOPTIN SR) 180 mg CR tablet Take 1 tablet by mouth once daily. atorvastatin (LIPITOR) 20 mg tablet Take 1 tablet by mouth once daily. magnesium oxide (MAG-OX) 400 mg tablet Take 0.5 tablets by mouth once daily. cholecalciferol (VITAMIN D3) 2,000 unit tablet Take 1 tablet by mouth once daily. SUMAtriptan (IMITREX) 100 mg tablet Take 1 tablet by mouth as needed. at onset of headache. May repeat after 2 hours. rizatriptan (MAXALT) 10 mg tablet TAKE DIRECTED zonisamide (ZONEGRAN) 100 mg capsule Take 3 capsules by mouth once daily. aspirin, enteric coated (ECOTRIN LOW STRENGTH) 81 mg EC tablet Take 1 tablet by mouth once daily. ALLERGIES: Allergies As of Date: 12/01/2017 Allergen Noted Reaction SEASONAL ALLERGIES 11/30/2012 Cough Fully Assessed 12/01/2017 PAST SURGICAL HISTORY Procedure Laterality Date - APPENDECTOMY 2003 - CYSTO W/URET STENT INSERTION - PAST SURGICAL HISTORY OF AVNRT ablation 03/2013 - TONSILLECTOMY HX age 20 FAMILY HISTORY: Allergic rhinitis:yes: mom. Asthma: no. Eczema: no. Cystic fibrosis: no. Immunodeficiency: no. 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 Pets in the home: 2 cats, 2 dogs Outdoor animals: 2 horses Tobacco smoke: No exposure in the home. Physical Exam: GENERAL APPEARANCE:Well appearing, alert, in no acute distress, well-hydrated, well nourished. HEENT: NCAT. EYES: conjunctiva and sclera normal. EARS: External ears normal. Canals clear. TM's normal. THROAT: no erythema NECK:neck supple, no adenopathy HEART:RRR with normal S1 and S2 ,no murmurs, no gallops, no rubs LUNGS: clear to auscultation bilaterally, no wheezes, rales or rhonchi ABDOMEN:soft, nontender, nondistended, without organomegaly or palpable masses EXTREMITIES:Extremities normal, No deformities, No skin discoloration and No edema SKIN: Skin color, texture, turgor normal. No rashes or lesions. ASSESSMENT/PLAN: 1.) Toxic effect venom: Patient with a history of delayed onset angioedema following honeybee stings. She will likely continue to have significant swelling with subsequent stings. She is at 3-10% risk of developing more severe allergic/sytemic reaction with subsequent stings. Recommend that she discontinue the honeybee treatment for migraine headaches as recurrent stings will increase her risk of developing a severe immediate systemic or anaphylactic reaction to subsequent stings. Insect sting avoidance measures. Venom allergy testing and venom immunotherapy are not indicated at this time. If patient decides to continue with honeybee sting treatment to prevent migraine headaches (AGAINST MEDICAL ADVICE), she should have epinephrine autoinjectors and Benadryl or Zyrtec available at all times in case of systemic reaction. Treatment of local reactions including application of cold compresses, taking oral antihistamine and elevation of the affected extremity were discussed. If swelling is severe, a short course of systemic corticosteroids may be warranted. 2.) Discussed medication dosage, usage, side effects, and goals of treatment in detail. 3.) Follow-up in PRN - patient will return sooner should new symptoms or problems arise. Aristeo Olmedo MD STRESS TEST ECHO W/O Observed: 11/13/2017 Status: F Source: AYUSH CONTRAST 6:13 PM [facility] REPOSITORY [facility] Cardiovascular Services [address] [place] [address] Stress Test Echo w/o Contrast MR#: [id number] Acct: [id number] Name: RACHNA KHAN Rep #: [id number] : 1965 52 From: Andreas Coker MD Primary Care: Jey Siegel DO Status: REG CLI Ordering Dr: Jonny Jessica MD Sex: F C Reason For Study: Chest Pain Stress Results Protocol: Crescencio Protocol Maximum Predicted HR: 168 bpm Target HR: 143 bpm% Max imum Predicted HR: 98 % DurationHeart Rate Stage (mm:ss) (bpm) BP Baseline 82 122/80 Crescencio Protocol Stage I 3:00 12 9 120/76 Crescencio Protocol Stage II 3:00 15 3 130/74 Crescencio Protocol Stage III 3:00 16 4 142/72 Crescencio Protocol Stage IV 0:01 16 4 / Recovery 104 118/7 2 Stress Duration: 9:01 mm:ss Maximum Stress HR: 164 bpmM ETS: 10 Baseline Echocardiogram Findings Stress Echo Wall motion Data Resting WMIntermediate WMStress WM Resting Wall Motion Wall Motion Stress No regional wall motion No regional wall motion abnormalities noted. abnormalities noted. Ejection Fraction 55 %. Ejection Fraction 70 %. Stress Results Normal blood pressure response to exercise. Exercise was stopped due to fatigue. EKG Data Baseline ECG demonstrates normal sinus rhythm with a rate of 72 beats per minute. The patient exercised according to the regular Crescencio protocol for a total duration of 9 min. The maximum heart rate attained was 166 beats per minute. This was 98% of maximum predicted heart rate. The patient exercised into stage 3 of the Crescencio protocol. During stress, there were no ST or T wave changes noted to suggest ischemia. At peak exercise, upsloping ST changes only were noted, which did not meet the criteria for ischemia. The peak blood pressure was 142/72. No arrhythmias noted. No clinical angina was noted. Interpretation Summary Normal resting LV systolic function. Nonstenotic valves. With stress, the LV size decreased and all segments augmented normally. The LVEF increased from 55% to 70%. Negative for ischemia at 98% of MPHR and at 10.1 METS. Normal stress echo at a high workload Ordering Physician: Jonny Jessica Referring Physician: Andreas Coker MD Performed By: Bozena Valle, ARUN, RVT 11/13/171812 Date Andreas Coker MD CC: Jey Siegel DO; Jonny Jessica MD Date Dictated: 11/13/17 1304 Date Transcribed: 11/13/171812 Coal Carrier: Signed PROGRESS Observed: 10/23/2017 Status: COMPLETED Source: [place] 9:46 AM [facility] REPOSITORY HNO ID: [id number] Author: Karson Campbell Service: (none) Author Type: Physician Type: Progress Notes Filed: 10/24/2017 1:00 PM Note Text: Chief Complaint Patient presents with: Recheck: left eyelid swelling HPI Rachna Khan is a 52 year old female who presents here today for Above Complaints.. Patient first noted the swelling on the upper outer part of the left eye on Thursday and yesterday was extending across the upper eye lid. Has been using benadryl and cold compresses and has helped. Went to yesterday. This morning was into the right upper eye lid. Does not itch. The only thing new is she has been getting bee sting treatment for the treatment of her migraines. Has felt slightly dizzy the past few days. Has felt slightly short of breath but airway not closing. Her heart has been palpating more than it's typical. Past medical history, appointments, medications, allergies reviewed. Previous Medical History PAST MEDICAL HISTORY Diagnosis Date - Degenerative disc disease lumbar - High cholesterol - HTN (hypertension) d/t SVT - Hypoglycemia - Kidney stone - Migraine headache - PMDD (premenstrual dysphoric disorder) - Premature atrial contraction - Sleep disorder Insomnia - Spondylolisthesis lumbar - SVT (supraventricular tachycardia) ([facility]) s/p AVNRT ablation at [facility], Dr[facility] Previous Surgical History PAST SURGICAL HISTORY Procedure Laterality Date - APPENDECTOMY 2003 - CYSTO W/URET STENT INSERTION - PAST SURGICAL HISTORY OF AVNRT ablation 03/2013 - TONSILLECTOMY HX age 20 Family History FAMILY HISTORY Problem Relation Age of Onset - Arthritis Mother osteo and rheumatoid - Hypertension Mother - Hypertension Father - Lipids Mother - Lipids Father - Stroke Maternal Grandmother - Thyroid Mother hypothyroid - monoclonal gammopathy [Other] [OTHER] Mother Patient Allergies ALLERGIES Allergen Reactions - Seasonal Allergies Cough Current Medications Current Outpatient Prescriptions on File Prior to Visit: verapamil SR (CALAN SR, ISOPTIN SR) 180 mg CR tablet Take 1 tablet by mouth once daily. atorvastatin (LIPITOR) 20 mg tablet Take 1 tablet by mouth once daily. magnesium oxide (MAG-OX) 400 mg tablet Take 0.5 tablets by mouth once daily. cholecalciferol (VITAMIN D3) 2,000 unit tablet Take 1 tablet by mouth once daily. SUMAtriptan (IMITREX) 100 mg tablet Take 1 tablet by mouth as needed. at onset of headache. May repeat after 2 hours. rizatriptan (MAXALT) 10 mg tablet TAKE DIRECTED zonisamide (ZONEGRAN) 100 mg capsule Take 3 capsules by mouth once daily. aspirin, enteric coated (ECOTRIN LOW STRENGTH) 81 mg EC tablet Take 1 tablet by mouth once daily. meloxicam (MOBIC) 15 mg tablet Take 1 tablet by mouth once daily. Take with food. No current facility-administered medications on file prior to visit. 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[employer] Social History Main Topics Smoking status: Never Smoker Smokeless status: Never Used Alcohol use: Yes Comment: social Drug use: No Sexual activity: Yes Partners with: Male Comment: post men Other Topics Concern Service No Sleep Concern Yes Comment:insomnia Stress Concern No Special Diet No Exercise Yes Comment:intermittently Seat Belt Yes Self-Exams No Social History Narrative , 3 daughters Goes by Chel[employer] Review of Symptoms REVIEW OF SYSTEMS See HPI EXAM: BP 118/80 (BP Site: Left Arm, BP Position: Sitting, BP Cuff Size: Large Adult) Pulse 80 Resp 14 Ht 165.1 cm (5' 5) Wt 71.2 kg (157 lb) LMP 05/21/2015 BMI 26.13 kg/m2 General Appearance: Well appearing, alert, in no acute distress, well-hydrated, well nourished.. Skin: Skin color, texture, turgor normal, no suspicious rashes or lesions, has slight swelling under the right eye, the left lateral upper eye lid and slightly above the eye brow on the left. . Eyes: Anicteric sclera. Conjunctiva normal. Extraocular movements are intact. . Oropharynx: Lips, mucosa, and tongue normal, teeth and gums normal, oropharynx normal. Neck: Supple, no adenopathy; thyroid symmetric, normal size, no bruits, no stridor.. Lungs: Lungs clear to auscultation. No wheezing, rhonchi, rales. Heart: RRR without murmur, gallop, or rubs. No ectopy. Health Maintenance List TETANUS due on 1976 PAP EVERY 5 YEARS due on 1995 HPV EVERY 5 YEARS due on 1995 HEPATITIS C SCREENING due on 2009 INFLUENZA(1) due on 04/24/2017 MAMMOGRAM due on 09/26/2017 FECAL OCCULT BLOOD due on 09/12/2018 DIABETES SCREEN due on 09/12/2020 LIPID SCREEN due on 09/12/2022 Data reviewed A/P ASSESSMENT/PLAN: 1. Swelling around both eyes - ICD9: 782.2, ICD10: R22.0 (primary diagnosis) Check - TSH BLD - T4 FREE/FREE THYROX - Suggested changing to claratin 10 mg a day. - Treat with steroid taper. 2. Hair loss - ICD9: 704.00, ICD10: L65.9 check - TSH BLD - T4 FREE/FREE THYROX 3. Fatigue, unspecified type - ICD9: 780.79, ICD10: R53.83 Check - TSH BLD - T4 FREE/FREE THYROX Discussed this could be the development of bee venom allergy and would be cautious with further bee string treatment and consider proceeding with skin testing first. Time with patient face to face was 25 min Karson Campbell MD CNOV Observed: 10/23/2017 Status: COMPLETED Source: [place] 9:40 AM [facility] REPOSITORY Office Visit (FAMPWS) RACHNA KHAN ([id number]) 1965 F Date Time Provider Department 10/23/17 9:40 AM [facility] CAMPBELL[facility] During your visit today, we recorded the following information about you: Pulse Respiration Blood pressure Weight 80/minute 14/minute 118/80 71.2 kg Height 1.651 m Karson Campbell MD 10/24/2017 1:00 PM Signed Chief Complaint Patient presents with: Recheck: left eyelid swelling HPI Rachna Vick Bill is a 52 year old female who presents here today for Above Complaints.. Patient first noted the swelling on the upper outer part of the left eye on Thursday and yesterday was extending across the upper eye lid. Has been using benadryl and cold compresses and has helped. Went to yesterday. This morning was into the right upper eye lid. Does not itch. The only thing new is she has been getting bee sting treatment for the treatment of her migraines. Has felt slightly dizzy the past few days. Has felt slightly short of breath but airway not closing. Her heart has been palpating more than it's typical. Past medical history, appointments, medications, allergies reviewed. Previous Medical History PAST MEDICAL HISTORY Diagnosis Date - Degenerative disc disease lumbar - High cholesterol - HTN (hypertension) d/t SVT - Hypoglycemia - Kidney stone - Migraine headache - PMDD (premenstrual dysphoric disorder) - Premature atrial contraction - Sleep disorder Insomnia - Spondylolisthesis lumbar - SVT (supraventricular tachycardia) ([facility]) s/p [facility]RT ablation at [facility], [facility] Previous Surgical History PAST SURGICAL HISTORY Procedure Laterality Date - APPENDECTOMY 2003 - CYSTO W/URET STENT INSERTION - PAST SURGICAL HISTORY OF AVNRT ablation 03/2013 - TONSILLECTOMY HX age 20 Family History FAMILY HISTORY Problem Relation Age of Onset - Arthritis Mother osteo and rheumatoid - Hypertension Mother - Hypertension Father - Lipids Mother - Lipids Father - Stroke Maternal Grandmother - Thyroid Mother hypothyroid - monoclonal gammopathy [Other] [OTHER] Mother Patient Allergies ALLERGIES Allergen Reactions - Seasonal Allergies Cough Current Medications Current Outpatient Prescriptions on File Prior to Visit: verapamil SR (CALAN SR, ISOPTIN SR) 180 mg CR tablet Take 1 tablet by mouth once daily. atorvastatin (LIPITOR) 20 mg tablet Take 1 tablet by mouth once daily. magnesium oxide (MAG-OX) 400 mg tablet Take 0.5 tablets by mouth once daily. cholecalciferol (VITAMIN D3) 2,000 unit tablet Take 1 tablet by mouth once daily. SUMAtriptan (IMITREX) 100 mg tablet Take 1 tablet by mouth as needed. at onset of headache. May repeat after 2 hours. rizatriptan (MAXALT) 10 mg tablet TAKE DIRECTED zonisamide (ZONEGRAN) 100 mg capsule Take 3 capsules by mouth once daily. aspirin, enteric coated (ECOTRIN LOW STRENGTH) 81 mg EC tablet Take 1 tablet by mouth once daily. meloxicam (MOBIC) 15 mg tablet Take 1 tablet by mouth once daily. Take with food. No current facility-administered medications on file prior to visit. 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 [employer] Social History Main Topics Smoking status: Never Smoker Smokeless status: Never Used Alcohol use: Yes Comment: social Drug use: No Sexual activity: Yes Partners with: Male Comment: post men Other Topics Concern Service No Sleep Concern Yes Comment:insomnia Stress Concern No Special Diet No Exercise Yes Comment:intermittently Seat Belt Yes Self-Exams No Social History Narrative , 3 daughters Goes by ANDquot;DebANDquot; Review of Symptoms REVIEW OF SYSTEMS See HPI EXAM: BP 118/80 (BP Site: Left Arm, BP Position: Sitting, BP Cuff Size: Large Adult) Pulse 80 Resp 14 Ht 165.1 cm (5' 5ANDquot;) Wt 71.2 kg (157 lb) LMP 05/21/2015 BMI 26.13 kg/m2 General Appearance: Well appearing, alert, in no acute distress, well-hydrated, well nourished.. Skin: Skin color, texture, turgor normal, no suspicious rashes or lesions, has slight swelling under the right eye, the left lateral upper eye lid and slightly above the eye brow on the left. . Eyes: Anicteric sclera. Conjunctiva normal. Extraocular movements are intact. . Oropharynx: Lips, mucosa, and tongue normal, teeth and gums normal, oropharynx normal. Neck: Supple, no adenopathy; thyroid symmetric, normal size, no bruits, no stridor.. Lungs: Lungs clear to auscultation. No wheezing, rhonchi, rales. Heart: RRR without murmur, gallop, or rubs. No ectopy. Health Maintenance List TETANUS due on 1976 PAP EVERY 5 YEARS due on 1995 HPV EVERY 5 YEARS due on 1995 HEPATITIS C SCREENING due on 2009 INFLUENZA(1) due on 04/24/2017 MAMMOGRAM due on 09/26/2017 FECAL OCCULT BLOOD due on 09/12/2018 DIABETES SCREEN due on 09/12/2020 LIPID SCREEN due on 09/12/2022 Data reviewed A/P ASSESSMENT/PLAN: 1. Swelling around both eyes - ICD9: 782.2, ICD10: R22.0 (primary diagnosis) Check - TSH BLD - T4 FREE/FREE THYROX - Suggested changing to claratin 10 mg a day. - Treat with steroid taper. 2. Hair loss - ICD9: 704.00, ICD10: L65.9 check - TSH BLD - T4 FREE/FREE THYROX 3. Fatigue, unspecified type - ICD9: 780.79, ICD10: R53.83 Check - TSH BLD - T4 FREE/FREE THYROX Discussed this could be the development of bee venom allergy and would be cautious with further bee string treatment and consider proceeding with skin testing first. Time with patient face to face was 25 min Karson Campbell MD Referring Provider: SELF [[id number]] Allergies As of Date: 10/23/2017 Noted Allergy Reaction SEASONAL ALLERGIES 11/30/2012 3 - Cough Date Reviewed: 10/23/2017 Reviewed by: Karson Campbell - Fully Assessed Reason for Visit: Recheck [92] Cmt: left eyelid swelling Primary Visit Diagnosis:Swelling around both eyes [R22.0] Other Visit Diagnoses:Hair loss [L65.9] Comment:lateral portion of eye brows. Fatigue, unspecified type [R53.83] Order(s):TSH BLD [SQTSH] Order #: [id number] FUTURE T4 FREE/FREE THYROX [SQFT4] Order #: [id number] FUTURE predniSONE (DELTASONE) 5 mg tabletTake ten tabs by mouth on day one and reduce by one a day till done.Disp: 55 tabletRfl: 0 Prescriptions as of 10/23/2017 Sig: VERAPAMIL ER (SR) 180 MG TABL* Take 1 tablet by mouth once d* ATORVASTATIN 20 MG TABLET Take 1 tablet by mouth once d* MAGNESIUM OXIDE 400 MG TABLET Take 0.5 tablets by mouth onc* CHOLECALCIFEROL (VITAMIN D3) * Take 1 tablet by mouth once d* SUMATRIPTAN 100 MG TABLET Take 1 tablet by mouth as nee* RIZATRIPTAN 10 MG TABLET TAKE DIRECTED ZONISAMIDE 100 MG CAPSULE Take 3 capsules by mouth once* ASPIRIN 81 MG TABLET,DELAYED * Take 1 tablet by mouth once d* PREDNISONE 5 MG TABLET Take ten tabs by mouth on day* MELOXICAM 15 MG TABLET Take 1 tablet by mouth once d* Problem List As Of Date 10/23/2017 Noted Resolved Migraine without aura [G43.009] INVALID FOR* Chronic fibrocystic breast disease in female [N*INVALID FOR* PAC (premature atrial contraction) [I49.1] INVALID FOR* 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 Disposition: Return if symptoms worsen or fail to improve. Follow-up and Disposition History Recorded Encounter Status:Closed by KARSON CAMPBELL on 10/24/17 PROGRESS Observed: 10/22/2017 Status: COMPLETED Source: [place] 7:[address] [facility] REPOSITORY O ID: [id number] Author: Savannah (Modeling Agency Manager) Ran Service: (none) Author Type: Nurse Practitioner Type: Progress Notes Filed: 10/22/2017 8:09 AM Note Text: Subjective HPI Rachna Khan is a 52 year old female who presents with her left eye swollen, started yesterday. It seems worse today. She used cool compresses at home, which helps temporarily. She denies any known allergen exposure. Medications are reviewed with patients, some medications do list facial swelling as a potential side effect. However, patient states she has been taking these medications for years or months without side effects. Review of Systems Constitutional: Negative. Negative for fever. Eyes: Negative for blurred vision, double vision, photophobia, pain, discharge and redness. Slight edema left eyelid Skin: Negative. Negative for rash. BP 102/70 Pulse 84 Temp 36.6 ?C (97.9 ?F) (Tympanic) Resp 20 Wt 69.9 kg (154 lb) LMP 05/21/2015 BMI 24.86 kg/m2 PAST MEDICAL HISTORY Diagnosis Date - Degenerative disc disease lumbar - High cholesterol - HTN (hypertension) d/t SVT - Hypoglycemia - Kidney stone - Migraine headache - PMDD (premenstrual dysphoric disorder) - Premature atrial contraction - Sleep disorder Insomnia - Spondylolisthesis lumbar - SVT (supraventricular tachycardia) ([facility]) s/p [facility]RT ablation at [facility] PAST SURGICAL HISTORY Procedure Laterality Date - APPENDECTOMY 2003 - CYSTO W/URET STENT INSERTION - PAST SURGICAL HISTORY OF AVNRT ablation 03/2013 - TONSILLECTOMY HX age 20 ALLERGIES Seasonal Allergies MEDICATIONS verapamil SR (CALAN SR, ISOPTIN SR) 180 mg CR tablet Take 1 tablet by mouth once daily. atorvastatin (LIPITOR) 20 mg tablet Take 1 tablet by mouth once daily. magnesium oxide (MAG-OX) 400 mg tablet Take 0.5 tablets by mouth once daily. cholecalciferol (VITAMIN D3) 2,000 unit tablet Take 1 tablet by mouth once daily. SUMAtriptan (IMITREX) 100 mg tablet Take 1 tablet by mouth as needed. at onset of headache. May repeat after 2 hours. rizatriptan (MAXALT) 10 mg tablet TAKE DIRECTED zonisamide (ZONEGRAN) 100 mg capsule Take 3 capsules by mouth once daily. aspirin, enteric coated (ECOTRIN LOW STRENGTH) 81 mg EC tablet Take 1 tablet by mouth once daily. meloxicam (MOBIC) 15 mg tablet Take 1 tablet by mouth once daily. Take with food. FAMILY HISTORY Problem Relation Age of Onset - Arthritis Mother osteo and rheumatoid - Hypertension Mother - Hypertension Father - Lipids Mother - Lipids Father - Stroke Maternal Grandmother - Thyroid Mother hypothyroid - monoclonal gammopathy [Other] [OTHER] Mother Social History Substance Use Topics - Smoking status: Never Smoker - Smokeless tobacco: Never Used - Alcohol use Yes Comment: social Objective Physical Exam Constitutional: She is well-developed, well-nourished, and in no distress. HENT: Head: Normocephalic. Eyes: Conjunctivae and EOM are normal. Pupils are equal, round, and reactive to light. Right eye exhibits no discharge and no exudate. Left eye exhibits no discharge and no exudate. Right conjunctiva is not injected. Left conjunctiva is not injected. ASSESSMENT/PLAN: 1. Swelling of eyelid, left - ICD9: 374.82, ICD10: H02.846 - continue cool compresses, may also take Benadryl 50 mg according to package directions. If not improving in 24 hours, or if worsening, follow up with PCP. - Discussed red flags and need for immediate medical evaluation if any occur. - Discussed supportive care treatment with fluids, rest and analgesia. - Discussed expected course of illness Savannah Tong CNP CNOV Observed: 10/22/2017 Status: COMPLETED Source: [place] 7:30 AM [facility] REPOSITORY Office Visit (WSTR) RACHNA KHAN ([id number]) 1965 F Date Time Provider Department 10/22/17 7:30 AM SAVANNAH TONG (SARAH) [facility] During your visit today, we recorded the following information about you: Temperature Pulse Respiration Blood pressure 97.9 degrees 84/minute 20/minute 102/70 Weight 69.9 kg Savannah Tong CNP 10/22/2017 8:09 AM Signed Subjective HPI Rachna Khan is a 52 year old female who presents with her left eye swollen, started yesterday. It seems worse today. She used cool compresses at home, which helps temporarily. She denies any known allergen exposure. Medications are reviewed with patients, some medications do list facial swelling as a potential side effect. However, patient states she has been taking these medications for years or months without side effects. Review of Systems Constitutional: Negative. Negative for fever. Eyes: Negative for blurred vision, double vision, photophobia, pain, discharge and redness. Slight edema left eyelid Skin: Negative. Negative for rash. BP 102/70 Pulse 84 Temp 36.6 ?C (97.9 ?F) (Tympanic) Resp 20 Wt 69.9 kg (154 lb) LMP 05/21/2015 BMI 24.86 kg/m2 PAST MEDICAL HISTORY Diagnosis Date - Degenerative disc disease lumbar - High cholesterol - HTN (hypertension) d/t SVT - Hypoglycemia - Kidney stone - Migraine headache - PMDD (premenstrual dysphoric disorder) - Premature atrial contraction - Sleep disorder Insomnia - Spondylolisthesis lumbar - SVT (supraventricular tachycardia) ([facility]) s/p AVNRT ablation at [facility], [facility] PAST SURGICAL HISTORY Procedure Laterality Date - APPENDECTOMY 2003 - CYSTO W/URET STENT INSERTION - PAST SURGICAL HISTORY OF AVNRT ablation 03/2013 - TONSILLECTOMY HX age 20 ALLERGIES Seasonal Allergies MEDICATIONS verapamil SR (CALAN SR, ISOPTIN SR) 180 mg CR tablet Take 1 tablet by mouth once daily. atorvastatin (LIPITOR) 20 mg tablet Take 1 tablet by mouth once daily. magnesium oxide (MAG-OX) 400 mg tablet Take 0.5 tablets by mouth once daily. cholecalciferol (VITAMIN D3) 2,000 unit tablet Take 1 tablet by mouth once daily. SUMAtriptan (IMITREX) 100 mg tablet Take 1 tablet by mouth as needed. at onset of headache. May repeat after 2 hours. rizatriptan (MAXALT) 10 mg tablet TAKE DIRECTED zonisamide (ZONEGRAN) 100 mg capsule Take 3 capsules by mouth once daily. aspirin, enteric coated (ECOTRIN LOW STRENGTH) 81 mg EC tablet Take 1 tablet by mouth once daily. meloxicam (MOBIC) 15 mg tablet Take 1 tablet by mouth once daily. Take with food. FAMILY HISTORY Problem Relation Age of Onset - Arthritis Mother osteo and rheumatoid - Hypertension Mother - Hypertension Father - Lipids Mother - Lipids Father - Stroke Maternal Grandmother - Thyroid Mother hypothyroid - monoclonal gammopathy [Other] [OTHER] Mother Social History Substance Use Topics - Smoking status: Never Smoker - Smokeless tobacco: Never Used - Alcohol use Yes Comment: social Objective Physical Exam Constitutional: She is well-developed, well-nourished, and in no distress. HENT: Head: Normocephalic. Eyes: Conjunctivae and EOM are normal. Pupils are equal, round, and reactive to light. Right eye exhibits no discharge and no exudate. Left eye exhibits no discharge and no exudate. Right conjunctiva is not injected. Left conjunctiva is not injected. ASSESSMENT/PLAN: 1. Swelling of eyelid, left - ICD9: 374.82, ICD10: H02.846 - continue cool compresses, may also take Benadryl 50 mg according to package directions. If not improving in 24 hours, or if worsening, follow up with PCP. - Discussed red flags and need for immediate medical evaluation if any occur. - Discussed supportive care treatment with fluids, rest and analgesia. - Discussed expected course of illness SARAH Tang CNP 10/22/2017 8:02 AM Signed Try benadryl according to label directions. Continue warm compresses. If not improving in 24 hours, see primary care provider for recheck. Referring Provider: SELF [[id number]] Allergies As of Date: 10/22/2017 Noted Allergy Reaction SEASONAL ALLERGIES 11/30/2012 3 - Cough Date Reviewed: 10/22/2017 Reviewed by: Savannah (Sarah) Ran - Fully Assessed Reason for Visit: Eye Problem [43] Cmt: Left eye swollen Primary Visit Diagnosis:Swelling of eyelid, left [H02.846] Prescriptions as of 10/22/2017 Sig: VERAPAMIL ER (SR) 180 MG TABL* Take 1 tablet by mouth once d* ATORVASTATIN 20 MG TABLET Take 1 tablet by mouth once d* MAGNESIUM OXIDE 400 MG TABLET Take 0.5 tablets by mouth onc* CHOLECALCIFEROL (VITAMIN D3) * Take 1 tablet by mouth once d* SUMATRIPTAN 100 MG TABLET Take 1 tablet by mouth as nee* RIZATRIPTAN 10 MG TABLET TAKE DIRECTED ZONISAMIDE 100 MG CAPSULE Take 3 capsules by mouth once* ASPIRIN 81 MG TABLET,DELAYED * Take 1 tablet by mouth once d* MELOXICAM 15 MG TABLET Take 1 tablet by mouth once d* Problem List As Of Date 10/22/2017 Noted Resolved Migraine without aura [G43.009] INVALID FOR* Chronic fibrocystic breast disease in female [N*INVALID FOR* PAC (premature atrial contraction) [I49.1] INVALID FOR* 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 Continue warm compresses. If not improving in 24 hours, see primary care provider for recheck. Encounter Status:Closed by SAVANNAH TONG on 10/22/17 PROGRESS Observed: 10/21/2017 Status: COMPLETED Source: [facility] 3:11 PM [facility] REPOSITORY HNO ID: [id number] Author: Jonny Jessica Service: (none) Author Type: Physician Type: Progress Notes Filed: 10/21/2017 4:59 PM Note Text: PERTINENT CARDIAC HISTORY AVNRT - ablation 2012 HL HTN Chest pain ADHERENCE TO GUIDELINES LACEY-I or ARB for HF with prior LVEF<40 (NQF 0081) - N/A ASA or Plavix for ASHD (NQF 0067) - N/A Beta alexa for ASHD with prior SD or prior LVEF<40 (NQF 0070) - N/A Beta alexa for HF with prior LVEF<40 (NQF 0083) - N/A LACEY-I or ARB for ASHD with DM or prior LVEF<40 (NQF 0066) - N/A Statin therapy for ASHD or FHL or DM - met BMI documented and plan if >25 (NQF 0421) - lifestyle recommendation form Tobacco use screening and referral (NQ 0028) - lifestyle recommendation form Recommendation for whole food, plant based diet - lifestyle recommendation form CLINICAL IMPRESSION/PLAN: Rachna Khan has persistent symptoms of atypical chest discomfort and exercise intolerance. Her atrial arrhythmia has improved with verapamil. However, she is still having a perception of tachycardia. I am concerned about the exercise intolerance. I have encouraged her to repeat a stress test. She has multiple risk factors for premature vascular disease. This will be performed with echo imaging to increase sensitivity and specificity. She had significant ST depression with tachycardia noted on her Holter monitor. I've encouraged her to continue verapamil. It would not be possible to increase the dose at this time as she has some intermittent lightheadedness and her blood pressure is borderline low. I will plan on seeing her on a to be arranged basis pending the outcome of the stress test. Written and verbal health teaching given to patient, patient verbalizes understanding and agrees with treatment plan. This note was generated using LoSo voice recognition system, and there may be some incorrect words, spellings, and punctuation that were not noted in checking the note before saving. DIAGNOSIS FOR VISIT: Dyspnea on exertion SVT HISTORY OF PRESENT ILLNESS Rachna Khan returns for follow-up of her event monitor and multiple symptoms. She had SVT during the first 48 hours of the monitor. Verapamil was substituted for her beta alexa. She reports that the palpitations were somewhat improved and no further SVT was seen, however her shortness of breath and intermittent chest discomfort have continued. her chest discomfort is described as a pressure-like sensation which can last hours at a time and is occasionally exertional. She reports that her exercise tolerance has decreased over the last few months. She denies syncope. She's had no TIAs, amaurosis or claudication. ALLERGIES: ALLERGIES Allergen Reactions - Seasonal Allergies Cough CURRENT OUTPATIENT MEDICATIONS: verapamil SR (CALAN SR, ISOPTIN SR) 180 mg CR tablet Take 1 tablet by mouth once daily. atorvastatin (LIPITOR) 20 mg tablet Take 1 tablet by mouth once daily. magnesium oxide (MAG-OX) 400 mg tablet Take 0.5 tablets by mouth once daily. cholecalciferol (VITAMIN D3) 2,000 unit tablet Take 1 tablet by mouth once daily. SUMAtriptan (IMITREX) 100 mg tablet Take 1 tablet by mouth as needed. at onset of headache. May repeat after 2 hours. rizatriptan (MAXALT) 10 mg tablet TAKE DIRECTED zonisamide (ZONEGRAN) 100 mg capsule Take 3 capsules by mouth once daily. aspirin, enteric coated (ECOTRIN LOW STRENGTH) 81 mg EC tablet Take 1 tablet by mouth once daily. meloxicam (MOBIC) 15 mg tablet Take 1 tablet by mouth once daily. Take with food. PHYSICAL EXAMINATION: VITAL SIGNS: BP 100/66 Pulse 82 Ht 5' 6 (1.68m) Wt 156 lb 11.2 oz (71.1kg) LMP 05/21/2015 BMI 25.30 kg/(m2). Chest: Clear to percussion and auscultation. Trachea is midline. Air entry is equal. Cardiac: Regular rhythm. S1 and S2 are normal. PMI is nondisplaced. There is a soft systolic ejection murmur. Carotids are brisk without bruits. JVP is less than 10 cm. Abdomen: Soft and nontender. There are no pulsatile masses or bruits. No liver enlargement. Bowel sounds are active. Extremities: No edema. Pulses are intact and symmetrical. Event monitor was reviewed. No significant ventricular arrhythmias were noted. She had a few short runs of SVT. Electronically Signed: Jonny Jessica MD October 21, 2017 3:11 PM CC: Jey Marmolejo DO CNOV Observed: 10/21/2017 Status: COMPLETED Source: [facility] 3:00 PM [facility] REPOSITORY Office Visit (AGCARDWST) RACHNA KHAN ([id number]) 1965 F Date Time Provider Department 2/28/18 3:00 PM JONNY JESSICA AGCARDWST During your visit today, we recorded the following information about you: Pulse Blood pressure Weight Height 82/minute 100/66 71.1 kg 1.676 m Jonny Jessica MD 10/21/2017 4:59 PM Signed PERTINENT CARDIAC HISTORY AVNRT - ablation 2012 HL HTN Chest pain ADHERENCE TO GUIDELINES LACEY-I or ARB for HF with prior LVEFANDlt;40 (NQF 0081) - N/A ASA or Plavix for ASHD (NQF 0067) - N/A Beta alexa for ASHD with prior SD or prior LVEFANDlt;40 (NQF 0070) - N/A Beta alexa for HF with prior LVEFANDlt;40 (NQF 0083) - N/A LACEY-I or ARB for ASHD with DM or prior LVEFANDlt;40 (NQF 0066) - N/A Statin therapy for ASHD or FHL or DM - met BMI documented and plan if ANDgt;25 (NQF 0421) - lifestyle recommendation form Tobacco use screening and referral (NQF 0028) - lifestyle recommendation form Recommendation for whole food, plant based diet - lifestyle recommendation form CLINICAL IMPRESSION/PLAN: Rachna Khan has persistent symptoms of atypical chest discomfort and exercise intolerance. Her atrial arrhythmia has improved with verapamil. However, she is still having a perception of tachycardia. I am concerned about the exercise intolerance. I have encouraged her to repeat a stress test. She has multiple risk factors for premature vascular disease. This will be performed with echo imaging to increase sensitivity and specificity. She had significant ST depression with tachycardia noted on her Holter monitor. I've encouraged her to continue verapamil. It would not be possible to increase the dose at this time as she has some intermittent lightheadedness and her blood pressure is borderline low. I will plan on seeing her on a to be arranged basis pending the outcome of the stress test. Written and verbal health teaching given to patient, patient verbalizes understanding and agrees with treatment plan. This note was generated using [employer] recognition system, and there may be some incorrect words, spellings, and punctuation that were not noted in checking the note before saving. DIAGNOSIS FOR VISIT: Dyspnea on exertion SVT HISTORY OF PRESENT ILLNESS Rachna Khan returns for follow-up of her event monitor and multiple symptoms. She had SVT during the first 48 hours of the monitor. Verapamil was substituted for her beta alexa. She reports that the palpitations were somewhat improved and no further SVT was seen, however her shortness of breath and intermittent chest discomfort have continued. her chest discomfort is described as a pressure-like sensation which can last hours at a time and is occasionally exertional. She reports that her exercise tolerance has decreased over the last few months. She denies syncope. She's had no TIAs, amaurosis or claudication. ALLERGIES: ALLERGIES Allergen Reactions - Seasonal Allergies Cough CURRENT OUTPATIENT MEDICATIONS: verapamil SR (CALAN SR, ISOPTIN SR) 180 mg CR tablet Take 1 tablet by mouth once daily. atorvastatin (LIPITOR) 20 mg tablet Take 1 tablet by mouth once daily. magnesium oxide (MAG-OX) 400 mg tablet Take 0.5 tablets by mouth once daily. cholecalciferol (VITAMIN D3) 2,000 unit tablet Take 1 tablet by mouth once daily. SUMAtriptan (IMITREX) 100 mg tablet Take 1 tablet by mouth as needed. at onset of headache. May repeat after 2 hours. rizatriptan (MAXALT) 10 mg tablet TAKE DIRECTED zonisamide (ZONEGRAN) 100 mg capsule Take 3 capsules by mouth once daily. aspirin, enteric coated (ECOTRIN LOW STRENGTH) 81 mg EC tablet Take 1 tablet by mouth once daily. meloxicam (MOBIC) 15 mg tablet Take 1 tablet by mouth once daily. Take with food. PHYSICAL EXAMINATION: VITAL SIGNS: BP 100/66 Pulse 82 Ht 5' 6ANDquot; (1.68m) Wt 156 lb 11.2 oz (71.1kg) LMP 05/21/2015 BMI 25.30 kg/(m2). Chest: Clear to percussion and auscultation. Trachea is midline. Air entry is equal. Cardiac: Regular rhythm. S1 and S2 are normal. PMI is nondisplaced. There is a soft systolic ejection murmur. Carotids are brisk without bruits. JVP is less than 10 cm. Abdomen: Soft and nontender. There are no pulsatile masses or bruits. No liver enlargement. Bowel sounds are active. Extremities: No edema. Pulses are intact and symmetrical. Event monitor was reviewed. No significant ventricular arrhythmias were noted. She had a few short runs of SVT. Electronically Signed: Jnony Jessica MD October 21, 2017 3:11 PM CC: Jey Marmolejo DO Referring Provider: JONNY JESSICA [[id number]] Allergies As of Date: 10/21/2017 Noted Allergy Reaction SEASONAL ALLERGIES 11/30/2012 3 - Cough Date Reviewed: 10/21/2017 Reviewed by: Patti Joshi - Fully Assessed Reason for Visit: Follow Up [171] Visit Diagnoses:Chest pain, unspecified type [R07.9] Shortness of breath [R06.02] Order(s):STRESS ECHO TREADMILL [[id number]] Order #: [id number]: 1 FUTURE verapamil SR (CALAN SR, ISOPTIN SR) 180 mg CR tabletTake 1 tablet by mouth once daily.Disp: 90 tabletRfl: 3 Prescriptions as of 10/21/2017 Sig: VERAPAMIL ER (SR) 180 MG TABL* Take 1 tablet by mouth once d* ATORVASTATIN 20 MG TABLET Take 1 tablet by mouth once d* MAGNESIUM OXIDE 400 MG TABLET Take 0.5 tablets by mouth onc* CHOLECALCIFEROL (VITAMIN D3) * Take 1 tablet by mouth once d* SUMATRIPTAN 100 MG TABLET Take 1 tablet by mouth as nee* RIZATRIPTAN 10 MG TABLET TAKE DIRECTED ZONISAMIDE 100 MG CAPSULE Take 3 capsules by mouth once* ASPIRIN 81 MG TABLET,DELAYED * Take 1 tablet by mouth once d* MELOXICAM 15 MG TABLET Take 1 tablet by mouth once d* Problem List As Of Date 10/21/2017 Noted Resolved Migraine without aura [G43.009] INVALID FOR* Chronic fibrocystic breast disease in female [N*INVALID FOR* PAC (premature atrial contraction) [I49.1] INVALID FOR* 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 Medications Discontinued During This Encounter verapamil SR (CALAN SR, ISOPTIN SR) * 90 t* 3 09/23/2017 10/21/2017 Route: ORAL Sig: Take 1 tablet by mouth once daily. Disc: Reason for discontinue is not on file. Encounter Status:Closed by JONNY JESSICA MD on 10/21/17 PROGRESS Observed: 09/18/2017 Status: COMPLETED Source: [facility] 5:21 PM [facility] REPOSITORY O ID: [id number] Author: Jonny Jessica Service: (none) Author Type: Physician Type: Progress Notes Filed: 09/18/2017 5:38 PM Note Text: PERTINENT CARDIAC HISTORY AVNRT - ablation 2012 HL HTN Chest pain ADHERENCE TO GUIDELINES LACEY-I or ARB for HF with prior LVEF<40 (NQF 0081) - N/A ASA or Plavix for ASHD (NQF 0067) - N/A Beta alexa for ASHD with prior SD or prior LVEF<40 (NQF 0070) - N/A Beta alexa for HF with prior LVEF<40 (NQF 0083) - N/A LACEY-I or ARB for ASHD with DM or prior LVEF<40 (NQF 0066) - N/A Statin therapy for ASHD or FHL or DM - N/A BMI documented and plan if >25 (NQF 0421) - lifestyle recommendation form Tobacco use screening and referral (NQF 0028) - lifestyle recommendation form Recommendation for whole food, plant based diet - lifestyle recommendation form CLINICAL IMPRESSION/PLAN: Rachna Khan has some symptoms of chest pain, palpitations and exercise intolerance which are probably chronic and related to stress. There is low probability of obstructive coronary disease. Event monitor will be performed to see if she has evidence of recurrent SVT. She has been on beta alexa for many years and may benefit from a change to verapamil. She has chronic migraine headaches and this would also help in that regard. I have suggested that we start the monitor while she is on metoprolol, get an initial reading and then make the switch [facility] through her monitoring period, to see if we can document any change in background frequency of APDs. She voices understanding. I will see her in one month to discuss the results. If she has increased chest pain or shortness of breath in the meantime, she's been advised to contact me. Thank you for asking me to see and make recommendations on Rachna Khan. This report is available to you in the shared medical record. Written and verbal health teaching given to patient, patient verbalizes understanding and agrees with treatment plan. This note was generated using LoSo voice recognition system, and there may be some incorrect words, spellings, and punctuation that were not noted in checking the note before saving. DIAGNOSIS FOR VISIT: SVT HISTORY OF PRESENT ILLNESS Rachna Khan is a 52-year-old woman who is seen in consultation at the request of Patti Ivan CNP, for recommendations regarding history of SVT and recurrent symptoms of chest discomfort, palpitations and exercise intolerance. She underwent ablation of AV marshall reentry tachycardia in 2012 in [place]. She was seen briefly by cardiology the following year but had no further follow-up. She reports occasional episodes of palpitation. These are not like the episodes she had prior to her ablation. They tend to be more irregular. She has not been able to get a heart rate during them. She has also noticed intermittent episodes of tightness in the chest which is sometimes positional, although occasionally exertional. This tends to be more when lying down. Changing position or taking deep breath can relieve them. Individual episodes can last hours. She has noted more fatigue. She's been under a lot of stress at school. She has known history of hyperlipidemia and episodic hypertension. ALLERGIES: ALLERGIES Allergen Reactions - Seasonal Allergies Cough CURRENT OUTPATIENT MEDICATIONS: cholecalciferol (VITAMIN D3) 2,000 unit tablet Take 1 tablet by mouth once daily. SUMAtriptan (IMITREX) 100 mg tablet Take 1 tablet by mouth as needed. at onset of headache. May repeat after 2 hours. rizatriptan (MAXALT) 10 mg tablet TAKE DIRECTED metoprolol succinate ER (TOPROL XL) 25 mg 24 hr tablet Take 1 tablet by mouth once daily. zonisamide (ZONEGRAN) 100 mg capsule Take 3 capsules by mouth once daily. meloxicam (MOBIC) 15 mg tablet Take 1 tablet by mouth once daily. Take with food. atorvastatin (LIPITOR) 20 mg tablet TAKE 1 TABLET ONCE DAILY aspirin, enteric coated (ECOTRIN LOW STRENGTH) 81 mg EC tablet Take 1 tablet by mouth once daily. magnesium oxide 400 mg ORAL tablet Take 200 mg by mouth twice daily. PAST MEDICAL HISTORY Diagnosis Date - Degenerative disc disease lumbar - High cholesterol - HTN (hypertension) d/t SVT - Hypoglycemia - Kidney stone - Migraine headache - PMDD (premenstrual dysphoric disorder) - Premature atrial contraction - Sleep disorder Insomnia - Spondylolisthesis lumbar - SVT (supraventricular tachycardia) ([facility]) s/p 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 SHEENT: No change in vision or auditory acuity. Respiratory: No productive cough. Cardiac: As noted above. GI: No melena. : No dysuria. Musculoskeletal: No myalgias. Neurologic: No strokes. Psychiatric: No depression. Endocrine: No diabetes. Hematologic: No anemia. PHYSICAL EXAMINATION: S/he is alert and in no distress VITAL SIGNS: BP 120/80 Pulse 78 Ht 5' 6 (1.68m) Wt 155 lb 11.2 oz (70.6kg) LMP 05/21/2015 BMI 25.14 kg/(m2). SHEENT: Skin is warm and dry. Pupils are round and reactive. Retinal vessels are grossly unremarkable. No xanthelasmas appreciated. Pharynx is benign. There is no oral cyanosis. Neck: supple. No adenopathy or thyroid enlargement. Chest: Clear to percussion and auscultation. Trachea is midline. Air entry is equal. There is no chest wall tenderness. Cardiac: Regular rhythm. S1 and S2 are normal. PMI is nondisplaced. There is a soft systolic ejection murmur. No click is heard. Carotids are brisk without bruits. JVP is less than 10 cm. Abdomen: Soft and nontender. There are no pulsatile masses or bruits. No liver enlargement. Bowel sounds are active. : Deferred. Extremities: No edema. Pulses are intact and symmetrical. No clubbing or cyanosis. No femoral bruits. Neurologic: Grossly normal motor and sensory. S/he is alert and oriented x4. Musculoskeletal: No joint deformities. No details regarding her ablation are available. Recent EKG shows sinus rhythm and is within normal limits. There are occasional atrial prematures. Echocardiogram was performed in 2012 and showed no evidence of ischemia. There is no valvular disease and LV function was normal. This test was done to evaluate similar symptoms, in retrospect. Recent labs were reviewed. CBC is within normal limits. Creatinine is slightly elevated. No significant change is seen. Event monitor performed in 2013 showed intermittent sinus tachycardia and atrial prematures but no evidence of SVT Electronically Signed: Jonny Jessica MD September 18, 2017 5:21 PM CC: DO MAVIS Mitchell Observed: 09/18/2017 Status: COMPLETED Source: [facility] 2:00 PM CLINIC OTHER CAMPUS REPOSITORY Office Visit (AGCARDWST) RACHNA KHAN ([id number]) 1965 F Date Time Provider Department 09/18/17 2:00 PM JONNY JESSICA During your visit today, we recorded the following information about you: Pulse Blood pressure Weight Height 78/minute 120/80 70.6 kg 1.676 m Jonny Jessica MD 09/18/2017 5:38 PM Signed PERTINENT CARDIAC HISTORY AVNRT - ablation 2012 HL HTN Chest pain ADHERENCE TO GUIDELINES LACEY-I or ARB for HF with prior LVEFANDlt;40 (NQF 0081) - N/A ASA or Plavix for ASHD (NQF 0067) - N/A Beta alexa for ASHD with prior SD or prior LVEFANDlt;40 (NQF 0070) - N/A Beta alexa for HF with prior LVEFANDlt;40 (NQF 0083) - N/A LACEY-I or ARB for ASHD with DM or prior LVEFANDlt;40 (NQF 0066) - N/A Statin therapy for ASHD or FHL or DM - N/A BMI documented and plan if ANDgt;25 (NQF 0421) - lifestyle recommendation form Tobacco use screening and referral (NQF 0028) - lifestyle recommendation form Recommendation for whole food, plant based diet - lifestyle recommendation form CLINICAL IMPRESSION/PLAN: Rachna Khan has some symptoms of chest pain, palpitations and exercise intolerance which are probably chronic and related to stress. There is low probability of obstructive coronary disease. Event monitor will be performed to see if she has evidence of recurrent SVT. She has been on beta alexa for many years and may benefit from a change to verapamil. She has chronic migraine headaches and this would also help in that regard. I have suggested that we start the monitor while she is on metoprolol, get an initial reading and then make the switch penitentiary through her monitoring period, to see if we can document any change in background frequency of APDs. She voices understanding. I will see her in one month to discuss the results. If she has increased chest pain or shortness of breath in the meantime, she's been advised to contact me. Thank you for asking me to see and make recommendations on Rachna Khan. This report is available to you in the shared medical record. Written and verbal health teaching given to patient, patient verbalizes understanding and agrees with treatment plan. This note was generated using LoSo voice recognition system, and there may be some incorrect words, spellings, and punctuation that were not noted in checking the note before saving. DIAGNOSIS FOR VISIT: SVT HISTORY OF PRESENT ILLNESS Rachna Khan is a 52-year-old woman who is seen in consultation at the request of Patti Ivan CNP, for recommendations regarding history of SVT and recurrent symptoms of chest discomfort, palpitations and exercise intolerance. She underwent ablation of AV marshall reentry tachycardia in 2012 in [place]. She was seen briefly by cardiology the following year but had no further follow-up. She reports occasional episodes of palpitation. These are not like the episodes she had prior to her ablation. They tend to be more irregular. She has not been able to get a heart rate during them. She has also noticed intermittent episodes of tightness in the chest which is sometimes positional, although occasionally exertional. This tends to be more when lying down. Changing position or taking deep breath can relieve them. Individual episodes can last hours. She has noted more fatigue. She's been under a lot of stress at school. She has known history of hyperlipidemia and episodic hypertension. ALLERGIES: ALLERGIES Allergen Reactions - Seasonal Allergies Cough CURRENT OUTPATIENT MEDICATIONS: cholecalciferol (VITAMIN D3) 2,000 unit tablet Take 1 tablet by mouth once daily. SUMAtriptan (IMITREX) 100 mg tablet Take 1 tablet by mouth as needed. at onset of headache. May repeat after 2 hours. rizatriptan (MAXALT) 10 mg tablet TAKE DIRECTED metoprolol succinate ER (TOPROL XL) 25 mg 24 hr tablet Take 1 tablet by mouth once daily. zonisamide (ZONEGRAN) 100 mg capsule Take 3 capsules by mouth once daily. meloxicam (MOBIC) 15 mg tablet Take 1 tablet by mouth once daily. Take with food. atorvastatin (LIPITOR) 20 mg tablet TAKE 1 TABLET ONCE DAILY aspirin, enteric coated (ECOTRIN LOW STRENGTH) 81 mg EC tablet Take 1 tablet by mouth once daily. magnesium oxide 400 mg ORAL tablet Take 200 mg by mouth twice daily. PAST MEDICAL HISTORY Diagnosis Date - Degenerative disc disease lumbar - High cholesterol - HTN (hypertension) d/t SVT - Hypoglycemia - Kidney stone - Migraine headache - PMDD (premenstrual dysphoric disorder) - Premature atrial contraction - Sleep disorder Insomnia - Spondylolisthesis lumbar - SVT (supraventricular tachycardia) (HCC) s/p AVNRT ablation at 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 SHEENT: No change in vision or auditory acuity. Respiratory: No productive cough. Cardiac: As noted above. GI: No melena. : No dysuria. Musculoskeletal: No myalgias. Neurologic: No strokes. Psychiatric: No depression. Endocrine: No diabetes. Hematologic: No anemia. PHYSICAL EXAMINATION: S/he is alert and in no distress VITAL SIGNS: BP 120/80 Pulse 78 Ht 5' 6ANDquot; (1.68m) Wt 155 lb 11.2 oz (70.6kg) LMP 05/21/2015 BMI 25.14 kg/(m2). SHEENT: Skin is warm and dry. Pupils are round and reactive. Retinal vessels are grossly unremarkable. No xanthelasmas appreciated. Pharynx is benign. There is no oral cyanosis. Neck: supple. No adenopathy or thyroid enlargement. Chest: Clear to percussion and auscultation. Trachea is midline. Air entry is equal. There is no chest wall tenderness. Cardiac: Regular rhythm. S1 and S2 are normal. PMI is nondisplaced. There is a soft systolic ejection murmur. No click is heard. Carotids are brisk without bruits. JVP is less than 10 cm. Abdomen: Soft and nontender. There are no pulsatile masses or bruits. No liver enlargement. Bowel sounds are active. : Deferred. Extremities: No edema. Pulses are intact and symmetrical. No clubbing or cyanosis. No femoral bruits. Neurologic: Grossly normal motor and sensory. S/he is alert and oriented x4. Musculoskeletal: No joint deformities. No details regarding her ablation are available. Recent EKG shows sinus rhythm and is within normal limits. There are occasional atrial prematures. Echocardiogram was performed in 2012 and showed no evidence of ischemia. There is no valvular disease and LV function was normal. This test was done to evaluate similar symptoms, in retrospect. Recent labs were reviewed. CBC is within normal limits. Creatinine is slightly elevated. No significant change is seen. Event monitor performed in 2013 showed intermittent sinus tachycardia and atrial prematures but no evidence of SVT Electronically Signed: Jonny Jessica MD September 18, 2017 5:21 PM CC: DO Jonny Mitchell MD 09/18/2017 5:39 PM Signed LIFESTYLE CHANGE A healthy lifestyle is the most important component of your overall treatment plan. 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 EAT A WHOLE FOOD, PLANT BASED DIET The nutrition your body gets is more important than the medicine you take. What matters most is the overall way you eat. We encourage you to minimize the use of animal products (which include dairy and all meats except fatty fish) and use whole, unprocessed plant foods to provide your protein, vitamins and other nutrients. We have a lot of information to share with you on this topic. We also hold Shared Medical Appointments, where you can come visit with Dr. Jessica in the company of other patients and spend over an hour talking about the challenges of changing the way you eat. This is not a ANDquot;dietANDquot;. It is a way of life that you will keep with you. EXERCISE REGULARLY It is not important to spend hours in the gym, lifting weights and perspiring heavily. A total of 2-3 hours per week of aerobic (causing you to be moderately short of breath) exercise is sufficient to improve your health. Talk to us before you begin a new exercise program, if you have heart disease or experience shortness of breath or chest pain. REDUCE STRESS Chronic emotional and physical stress leads to disease. Ways of reducing stress include meditation, visualization, prayer, yoga and other forms of relaxation therapy. Consistency is the donahue. Find a technique that works for you and do it every day. CULTIVATE RELATIONSHIPS Loneliness and isolation have a major negative impact on health. Seek out others who can love, care for and nurture you. Avoid hurtful relationships. MAINTAIN IDEAL BODY WEIGHT The best way to do this is to do all the things above. Our bodies naturally find the right weight if we keep moving and feed ourselves the right food. If your BMI is greater than 25, we strongly recommend a referral to a weight management program. Please speak to us or your family physician about available programs. AVOID NICOTINE IN ALL FORMS This includes all tobacco products, whether chewed, smoked, vaped, or rubbed on the skin. Smoking cessation programs, which can make use of tobacco substitutes, medications to suppress cravings and behavior management, are available. Please contact your family physician about programs in your area. Referring Provider: JEY MARMOLEJO [[id number]] Allergies As of Date: 09/18/2017 Noted Allergy Reaction SEASONAL ALLERGIES 11/30/2012 3 - Cough Date Reviewed: 09/18/2017 Reviewed by: Prosper (Rn) KENA Woods - Fully Assessed Reason for Visit: New Patient [172] Primary Visit Diagnosis:SVT (supraventricular tachycardia) (HCC) [I47.1] Other Visit Diagnosis:Other chest pain [R07.89] Order(s):magnesium oxide (MAG-OX) 400 mg tabletTake 0.5 tablets by mouth once daily.Disp: Rfl: ECG B/O W INTERP (MED OFFICE) [ECG06] Order #: [id number] EVENT MONITOR [2562929] Order #: [id number]: 1 Prescriptions as of 09/18/2017 Sig: MAGNESIUM OXIDE 400 MG TABLET Take 0.5 tablets by mouth onc* CHOLECALCIFEROL (VITAMIN D3) * Take 1 tablet by mouth once d* SUMATRIPTAN 100 MG TABLET Take 1 tablet by mouth as nee* RIZATRIPTAN 10 MG TABLET TAKE DIRECTED METOPROLOL SUCCINATE ER 25 MG* Take 1 tablet by mouth once d* ZONISAMIDE 100 MG CAPSULE Take 3 capsules by mouth once* MELOXICAM 15 MG TABLET Take 1 tablet by mouth once d* ATORVASTATIN 20 MG TABLET TAKE 1 TABLET ONCE DAILY ASPIRIN 81 MG TABLET,DELAYED * Take 1 tablet by mouth once d* Problem List As Of Date 09/18/2017 Noted Resolved Migraine without aura [G43.009] INVALID FOR* Chronic fibrocystic breast disease in female [N*INVALID FOR* PAC (premature atrial contraction) [I49.1] INVALID FOR* 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 Please give serious thought to the following areas and commit to making senior living changes. EAT A WHOLE FOOD, PLANT BASED DIET The nutrition your body gets is more important than the medicine you take. What matters most is the overall way you eat. We encourage you to minimize the use of animal products (which include dairy and all meats except fatty fish) and use whole, unprocessed plant foods to provide your protein, vitamins and other nutrients. We have a lot of information to share with you on this topic. We also hold Shared Medical Appointments, where you can come visit with Dr. Jessica in the company of other patients and spend over an hour talking about the challenges of changing the way you eat. This is not a diet. It is a way of life that you will keep with you. EXERCISE REGULARLY It is not important to spend hours in the gym, lifting weights and perspiring heavily. A total of 2-3 hours per week of aerobic (causing you to be moderately short of breath) exercise is sufficient to improve your health. Talk to us before you begin a new exercise program, if you have heart disease or experience shortness of breath or chest pain. REDUCE STRESS Chronic emotional and physical stress leads to disease. Ways of reducing stress include meditation, visualization, prayer, yoga and other forms of relaxation therapy. Consistency is the donahue. Find a technique that works for you and do it every day. CULTIVATE RELATIONSHIPS Loneliness and isolation have a major negative impact on health. Seek out others who can love, care for and nurture you. Avoid hurtful relationships. MAINTAIN IDEAL BODY WEIGHT The best way to do this is to do all the things above. Our bodies naturally find the right weight if we keep moving and feed ourselves the right food. If your BMI is greater than 25, we strongly recommend a referral to a weight management program. Please speak to us or your family physician about available programs. AVOID NICOTINE IN ALL FORMS This includes all tobacco products, whether chewed, smoked, vaped, or rubbed on the skin. Smoking cessation programs, which can make use of tobacco substitutes, medications to suppress cravings and behavior management, are available. Please contact your family physician about programs in your area. Prescriptions ordered this encounter Disp Refills Start End MAGNESIUM OXIDE 400 MG TABLET 09/18/2017 Class: Med Update Route: ORAL Sig: Take 0.5 tablets by mouth once daily. Medications Discontinued During This Encounter magnesium oxide 400 mg ORAL tablet 0 03/21/2016 09/18/2017 Class: OTC Route: ORAL Sig: Take 200 mg by mouth twice daily. Disc: Reason for discontinue is not on file. Follow-up and Disposition History Recorded Classic SmartForms filed during this visit: yeppts Encounter Status:Closed by JONNY JESSICA MD on 09/18/17 ALLERGIES ALLERGIES DATE TYPE / CODE NAME / CODE REACTION SEVERITY SOURCE 08/10/2018 Drug No Known Unknown [facility] Allergy/416 Allergies/[id number] [facility] 426662(SNOM 0388(RXNORM) Repository ED CT) 11/30/2012 Environ/420 SEASONAL COUGH [facility] 428002(SNOM ALLERGIES Other [place] ED CT) Repository /[id number] SEASONAL [place] [address](SNOMED [facility]ERGIES [facility]) Repository ENCOUNTERS ENCOUNTERS ADMIT/DISCHARGE ACCOUNT NUMBER ADMITTING ENCOUNTER LOCATION SOURCE CLASS 09/02/2018 [id number] [facility] Repository 08/10/2018/08/11/20 [id number] [facility] [address] ding:YR8Uluy Repository : KT993Ksh: 1 06/28/2018/06/29/20 [id number] Ambulatory [address] Repository 06/11/2018/06/11/20 [id number] Ambulatory [address] Repository 04/21/2018 [id number] [facility]ulatory [facility] MEDICAL Repository CENTERBuildi ng:CAGWS 12/01/2017/12/03/19 [id number] Ambulatory [address] Repository 11/13/2017 [id number] Ambulatory BMSBuilding: [facility] Repository 11/13/2017 [id number] [facility] ding[facility] Repository 10/23/2017/10/27/19 [id number] Ambulatory [address] Repository 10/22/2017/10/24/19 [id number] Ambulatory [address] Main [place] Repository 10/21/2017/10/21/19 [id number] Ambulatory [address] Other [place] Repository 10/21/2017/10/21/19 [id number] Ambulatory [address] MEDICAL Repository CENTERBuildi ng:CAGWS 09/18/2017/09/18/19 [id number] Ambulatory [address] Other [place] Repository 09/18/2017/09/18/19 [id number] Ambulatory [address] MEDICAL Repository CENTERBuildi ng:CAGWS 09/18/2017/09/18/19 [id number] Ambulatory [address] Repository 09/18/2017/09/18/19 [id number] Ambulatory [address] MEDICAL Repository CENTERBuildi ng:CAGWS PAYERS PAYERS ENCOUNTER GUARANTOR PAYER SUBSCRIBER SOURCE 09/02/2018 KORTNEY Starkey Primary RACHNA L [place] [id number] Insurance:MEDICAL CARLSBADDOB: [facility] [id number] [address]Hmg: Number: Repository [id number] (HP) Date:5523-00-27XL [address] [place] [address]EX: 09/02/2018 Secondary NOT GIVENUNK Ayush Insurance:SELF PAY [facility] Number: Effective Repository Date:2018-09-02 08/10/2018 KORTNEY Starkey Primary RACHNA L Ayush [id number] Insurance:MEDICAL [facility]: [facility] [id number] [facility] Hospital [address]Zjq: Number: Repository [id number] (HP) Date:1894-81-10[address] [address]TT: 08/10/2018 Secondary NOT GIVENUNK Ayush Insurance:SELF PAY [facility] Number: Effective Repository Date:2018-08-10 04/21/2018 RACHNA L Primary Insurance:MMO RACHNA L [facility] CARLSBADDOB: SUPERMED PLUSPolicy GEORGEDOB: [facility] Number: [id number] Repository LIDIA FISHER, [id number] [place] [address]Pgz: Date: (HP) 11/13/2017 Karson Starkey Primary RACHNA Pe[place] [id number] Insurance[facility] [id number] General Hospital [address]Oxc: Number: Repository [id number] (HP) Date:1565-24-53FL [address] [address]PB: 11/13/2017 Secondary NOT GIVENUNK Ayush Insurance:SELF PAY [facility] Number: Effective Repository Date:2017-11-13 11/13/2017 Karson S Primary RACHNA Peacock [id number] Insurance:[facility] [id number] General Hospital [address]Lwl: Number: Repository [id number] (HP) Date:[id number] [address] [address]XE: 11/13/2017 Secondary NOT GIVENUNK [place] Insurance:SELF PAY [facility] Number: Effective Repository Date:2017-10-21 10/21/2017 RACHNA L Primary Insurance:MMO RACHNA L [facility] GEORGEDOB: SUPERMED PLUSPolicy GEORGEB: [facility] Number: [id number] Repository LIDIA FISHER, [id number] [place] [address]Sxm: Date: (HP) 09/18/2017 RACHNA L Primary Insurance:MMO RACHNA L [facility] GEORGEDOB: SUPERMED PLUSPolicy [facility] Number: [id number] Repository LIDIA FISHER, [id number] [place] [address]Itn: Date: () 09/18/2017 RACHNA Vick Primary Insurance:[facility] RACHNA Vick [facility]: [facility]: [facility] [id number] Number: [id number] FISHER, [id number] [place] [address]Ygg: Date: ()
== END 2018-08-11 18:08 | disposition home or self-care (01) ==
LOC: ED 22:11 → MS3 23:43
PROVIDERS: Admitting Provider Urology; Emergency Provider Emergency Medicine; Family Provider Student in an Organized Health Care Education/Training Program; PCP Student in an Organized Health Care Education/Training Program; Visit Provider Urology
PROC: 0TJ98ZZ Inspection of Ureter, Via Natural or Artificial Opening Endoscopic (ICD-10-PCS; CPT 52352; principal; 2018-08-11 17:00)
DX: N13.2 Hydronephrosis with renal and ureteral calculous obstruction (principal); G43.909 Migraine, unspecified, not intractable, without status migrainosus; Z79.899 Other long term (current) drug therapy; Z79.82 Long term (current) use of aspirin
CPT/HCPCS: 52353; 74176; 80048; 81001; 82360; 85025; 88300; 96361; 96374; 96375; 96376; 99218; 99283; J7030; A4216; C1769; G0378; J2405

== ENCOUNTER → 2018-09-02 16:58 | Outpatient (CLI) | payer OTHER, SELFPAY ==
[2018-08-11 00:24] VITALS: BMI 25.9
== END ==
PROVIDERS: Family Provider Student in an Organized Health Care Education/Training Program; PCP Student in an Organized Health Care Education/Training Program; Referring Provider Urology; Visit Provider Urology
DX: N39.0 Urinary tract infection, site not specified (principal)
CPT/HCPCS: 87086

== ENCOUNTER 2019-09-19 16:00 | Outpatient (RCR) | payer OTHER, SELFPAY ==
[2018-08-11 00:24] VITALS: BMI 25.9
--- NOTE | 2019-08-16 12:30 | HP.PTEVAL ---
Patient's Visit Information RACHNA KHAN is a 54 year old F referred to Physical Therapy by Jey Arthur DO with a diagnosis of ACUTE MIDLINE LOW BACK PAIN WITHOUT SCIATICA. Date of Evaluation: 08/16/19 Physical Therapist: Franck Hsu, PT, Cert MDT, OCS - Visit Plan Frequency: 1-2x /Week Duration: 4 Weeks Plan: PT INTERVENTIONS WITH DLS ABD/BACK,POSTURAL EX'S ,LE STRENGTHENING,MODLATIES NEEDED - Subjective Findings: This 54 y/o female presents to physical therapy with low back pain . Patient has had LBP for many years. 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 Patient see MD placed on MEDS and recommended PT. Patient stated if PT doesnt help may get further diagnostics. Pain located symmtrical LBP. Patient pain aggravating factors standing,lifting ,job demands. Symptoms better with rest. Coughing/sneezing -. Bowel/bladder-. Denies parathesia/tingling. Pain affects sleeping. Patient has had pain prior PT massage . Patient pain affects ADL'S ,job demands and housework tasks. Patient symptoms affects QOL.Patient. SOCIAL: . 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 GAIT: reciprocal pattern. NEURO: denies parathesia/tingling ,reflexes L3-4,L4-5,L5-S1 1/3. PALAPTION: tender L-S. SYMMTRIES: align. MMT: quads/hams/hip 4/5 ,ankle 4/5. FLEXABLITY: hams min tight. LUMBAR ROM: flexion min loss,extesnion min loss,side glides min loss - Special Tests L/S Slump test left side: Negative L/S Slump test right side: Negative L/S Left Straight Leg Raise: Negative L/S Right Straight Leg Raise: Negative Lumbar Standing: Flexion - Mechanical Response: No effect Lumbar Standing: Flexion - Symptoms During Testing: No effect Lumbar Standing: Flexion - Symptoms After Testing: No worse Lumbar Standing: Extension - Mechanical Response: No effect Lumbar Standing: Extension - Symptoms During Testing: Abolishes Lumbar Standing: Extension - Symptoms After Testing: No worse Lumbar Standing: Right Side Glides - Mechanical Response: No effect Lumbar Standing: Right Side [place] - Symptoms During Testing: No effect Lumbar Standing: Right Side [place] - Symptoms After Testing: No effect Lumbar Standing: Left Side [place] - Mechanical Response: No effect Lumbar Standing: Left Side [place] - Symptoms During Testing: No effect Lumbar Standing: Left Side [place] - Symptoms After Testing: No effect Lumbar Lying: Flexion - Mechanical Response: No effect Lumbar Lying: Flexion - Symptoms During Testing: Increases Lumbar Lying: Flexion - Symptoms After Testing: No worse Lumbar Lying: Extension - Mechanical Response: No effect Lumbar Lying: Extension - Symptoms During Testing: Increases Lumbar Lying: Extension - Symptoms After Testing: No worse - Goals Goal 1:: Patient to be Independant with HEP. Goal Time Frame: 4-6 Weeks Goal 2:: Patient to improve posture/body mechanics for ADLS' Goal Time Frame: 4-6 Weeks Goal 3:: Patient decrease pain by 50% or> to improve function. Goal Time Frame: 4-6 Weeks Goal 4:: Patient improve lumbar ROM for function of recovery. Goal Time Frame: 4-6 Weeks Goal 5:: Patient to improve back owestry score by 5 points > to improve QOL. 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 Rehabilitation Potential: Good - Anticipated Interventions Patient/Client Instruction: Educate patient on: Condition, Plan of Care For the Purpose of:: To decrease pain, To increase ROM, To improve muscle performance and motor function, To improve ability to perform ADL's, To improve performance and independence with ADL's, To improve ability of physical actions for home/community/work/leisure, To improve health of tissue, To decrease soft tissue restriction, To increase flexibility/ROM, To improve ability to perform tasks related to life management Therapeutic Exercise to Include: Strength training, Body mechanics, Postural training, Flexibilty training, Dynamic Lumbar Stabilization For the Purpose of:: To decrease pain, To increase ROM, To improve muscle performance and motor function, To improve ability to perform ADL's, To increase tolerance to activity/condition/position, To improve ability of physical actions for home/community/work/leisure, To improve health of tissue, To decrease soft tissue restriction, To increase flexibility/ROM, To improve ability to perform tasks related to life management TENS: Yes IF ES: Yes Cryotherapy (ice pack, ice massage): Yes Thermo therapy (hot pack): Yes Ultrasound (thermal/non thermal): Yes For the Purpose of:: To decrease pain, To decrease swelling/inflammation, To increase ROM, To improve health of tissue, To decrease soft tissue restriction Thank you for the opportunity to evaluate your patient. For Medicare and Medicare HMO plans, please review the plan of care and approve it. It will need to be FAXED BACK to us at [phone] for Medicare purposes. For Medicare only, by signing this I certify the plan of care. Please let me know if there are questions or concerns regarding this plan of care. Physician Signature: Date:
--- NOTE | 2019-09-19 16:29 | HP.PTDCSUM ---
HP - PT D/C Summary It has been my pleasure to treat RACHNA KHAN under orders from Jey Arthur DO, for the diagnosis of ACUTE MIDLINE LOW BACK PAIN WITHOUT SCIATICA for a total of 80 visit(s). Discharge Date: 09/19/19 Please see the following information for a summary of their discharge status. - Subjective Subjective: Doing well ..no pain Return to function. - Pain Bilateral Back Pain Intensity (Out of 10): 0 - Objective Objective/Function: POSTURE: WFL. GAIT : reciprocal pattern. NEURO: denies parathesia/tingling. MMT: 4/5. LUMBAR ROM: flexion min loss,extension min loss - Goals Goal 1:: Patient to be Independant with HEP. Goal Progress: Goal Met Goal 2:: Patient to improve posture/body mechanics for ADLS' Goal Progress: Goal Met Goal 3:: Patient decrease pain by 50% or> to improve function. Goal 4:: Patient improve lumbar ROM for function of recovery. Goal Progress: Goal Met Goal 5:: Patient to improve back owestry score by 5 points > to improve QOL. Goal Progress: Goal Met - Plan Plan: D/C - D/C Information Discharge Comments: HEP If there are questions or concerns regarding this patient's physical therapy, please feel free to call me at [phone]. Thank you for the referral of this patient. Sincerely, Franck Hsu, PT, Cert MDT, OCS
== END 2019-09-19 19:00 | disposition home or self-care (01) ==
LOC: PT 16:00
PROVIDERS: Family Provider Student in an Organized Health Care Education/Training Program; PCP Student in an Organized Health Care Education/Training Program; Referring Provider Student in an Organized Health Care Education/Training Program; Visit Provider Student in an Organized Health Care Education/Training Program
DX: M54.5 Low back pain (principal)
CPT/HCPCS: 97110; 97162

== ENCOUNTER → 2019-10-26 15:49 | Outpatient (CLI) | payer OTHER, SELFPAY ==
[2019-10-26 15:03] VITALS: BMI 27.6
--- NOTE | 2019-10-26 16:00 | RAD_ITS ---
STUDY: X-RAY CHEST REASON FOR EXAM: Female, 54 years old. scheduled for heart cath tomorrow 10/27/19 TECHNIQUE: 2 views COMPARISON: None. FINDINGS: The lungs are clear and expanded. There is no demonstrated pleural abnormality. Normal size heart. Normal mediastinum and kathrine. Normal visualized pulmonary arteries. Normal visualized aortic arch and descending thoracic aorta. Mild degenerative changes of thoracic spine with demineralized osseous structures. Normal visualized ribs, clavicles, and shoulders. There is no demonstrated abnormality of the visualized soft tissue structures of the upper abdomen. RAD/Chest PA and Lateral IMPRESSION: No acute cardiopulmonary findings. Negative for consolidation, focal atelectasis, cardiomegaly or substantial pleural effusion. Electronically Signed: Sakina Ly MD at 20:46 EST , Service support ,
[2019-10-26 16:12] LABS: Absolute Lymphocyte Count 2.29 X10^3/uL (0.83-4.51); Absolute Neutrophil Count 3.8 X10^3/uL (2.0-7.7); Basophil# 0.02 X10^3/uL; Basophil% 0.3 % (0-1); Eosinophil# 0.06 X10^3/uL; Eosinophils% 0.9 % (0-5); Hemoglobin 14.6 g/dL (12.0-15.0); Lymphocyte # 2.29 X10^3/ul (4.0); Lymphocyte % 33.8 % (19-41); Mean Corp Hgb Conc 32.4 g/dL (32-36); Mean Corpuscular Hgb 29.4 pg (27.0-32.0); Mean Corpuscular Volume 90.7 fL (81-99); Mean Platelet Vol. 9.9 fl (6.2-12.0); Monocyte# 0.57 X10^3/uL; Monocyte% 8.4 % (0-10); NRBC Flagged by Analyzer 0 % (0-5); Neutrophil # 3.82 X10^3/uL (2.7-7.7); Neutrophil % 56.3 % (47-70); Platelet Count 219 K/mm3 (150-450); RBC Distribution Width SD 42.7 fl (35.1-43.9); Red Blood Count 4.96 M/mm3 (4.2-5.4); White Blood Count 6.8 K/mm3 (4.4-11.0)
[2019-10-26 16:53] LABS: Anion Gap 5 (5-15); BUN 21 mg/dL (7-18); BUN/Creat Ratio 24.8 RATIO (10-20); Calcium,Total 9.1 mg/dL (8.5-10.1); Chloride 107 mmol/L (98-107); Creatinine, Serum 0.85 mg/dL (0.55-1.02); EST Glomerular Filtration Rate 74 mL/min (>60); Est Glom Filt Rate - Afr Amer 90 mL/min (>60); Glucose 82 mg/dL (74-106); Potassium 3.5 mmol/L (3.5-5.1); Sodium Level 140 mmol/L (136-145)
== END ==
PROVIDERS: PCP Student in an Organized Health Care Education/Training Program; Referring Provider Internal Medicine Cardiovascular Disease; Visit Provider Internal Medicine Cardiovascular Disease
DX: R07.9 Chest pain, unspecified (principal); I10 Essential (primary) hypertension
CPT/HCPCS: 36415; 71046; 80048; 85025

== ENCOUNTER 2019-10-27 06:51 | Day surgery (SDC) | payer OTHER, SELFPAY ==
[2019-10-26 15:03] VITALS: BMI 27.6
[2019-10-27 06:45] VITALS: BMI 27.6
[2019-10-27 07:14] LABS: Internal QC Validated? YES +Cl - CLEAR BKGD; Pregnancy, Urine Negative Negative
--- NOTE | 2019-10-27 08:41 | CL.D_ITS ---
Patient Name: RACHNA KHAN Study Date: 10/27/2019 Performing: Andreas Coker MD Ht: 64.96 inches 165 cm : 1965 Wt: 165.35 lbs 75 kg Age: 54 Gender: female BSA: 1.82 PROCEDURE(S) PERFORMED [id number] CLINICAL PROFILE AND INDICATIONS Indications: Suspected CAD Heart Failure: None Stress/Imaging Stress/Image Study Performed: No CAD Presentations: Unstable angina. CONCLUSIONS Normal coronary arteries Normal LV size, wall motion,and systolic function RECOMMENDATIONS Medical therapy DESCRIPTION OF PROCEDURE The patient arrived to the procedure lab. The risks and benefits of the procedure as well as a full d escription of our services here and current unavailability of surgical backup were fully explained to the patient and/or their significant other prior to the catheterization. The Timeout was completed, verifying the correct patient and procedure. The patient's procedural site was prepped and draped in the usual fashion. Local anesthetic was given subcutaneously to right radial region with Lidocaine 2% . Using a modified Seldinger technique, arterial access was obtained via the right radial artery, a 6 Fr sheath was inserted. Left Coronary Artery selective angiography was performed in multiple views u sing a 5 Fr. 4.0 Gambier catheter. Right Coronary Artery selective angiography was then performed in mu ltiple views using a 5 Fr. 4.0 Gambier catheter. Left Ventriculography was performed in CULP projection using a 5 Fr. Pigtail catheter. LV to AO pullback pressures were then recorded.The arterial sheath was pulled and a TR Band was applied for hemostasis CORONARY ANGIOGRAPHY DOMINANCE: Right Dominant LEFT HEART ASSESSMENT Left Ventricular Ejection Fraction: by LV Gram 60 % Normal Left Ventricular systolic function Normal Left Ventricular systolic function LEFT MAIN: Angiographically normal LEFT ANTERIOR DESCENDING ARTERY: Angiographically normal CIRCUMFLEX ARTERY: Angiographically normal RIGHT CORONARY ARTERY: Angiographically normal COMPLICATIONS No Complications PROCEDURE MEDICATIONS Fentanyl 50 mcg IV Versed 1 mg IV Versed 1 mg IV Oxygen: 2 L/min via nasal cannula Heparin diluted in 23cc Heparinized saline. Patient given 10cc IA of this solution. 10/27/2019 08:27:0 7 Verapamil 2.5mg, Ntg 100mcgs, 2000 units of Heparin diluted in 23cc Heparinized saline. Patient give n 10cc IA of this solution. 10/27/2019 08:27:07 IV Bolus: .9 NaCl 200 ml total 10/27/2019 08:27:58 SUMMARY OF HEMODYNAMIC DATA Time AIR REST ECG 07:15:35 AO 99/66 (82) SA 08:26:06 LV 101/1, 12 08:30:43 LV 87/0, 6 08:30:49 LV 102/-13, 6 08:31:45 LV 106/-13, 7 08:31:52 LVp 85/-7, 8 08:31:57 AOp 118/69 (93) 08:32:02 Signed By Andreas Coker MD On 10/27/2019 08:41:21 Andreas Coker MD
== END 2019-10-27 10:18 | disposition home or self-care (01) ==
LOC: CLSP 06:52
PROVIDERS: PCP Student in an Organized Health Care Education/Training Program; Referring Provider Internal Medicine Cardiovascular Disease; Visit Provider Internal Medicine Cardiovascular Disease
DX: I20.0 Unstable angina (principal); I47.1 Supraventricular tachycardia; I10 Essential (primary) hypertension; E78.5 Hyperlipidemia, unspecified; Z79.899 Other long term (current) drug therapy
CPT/HCPCS: 81025; 93458; 99152; 99153; J7040; Q9967; C1769; C1894

== ENCOUNTER → 2019-11-02 07:49 | Outpatient (CLI) | payer OTHER, SELFPAY ==
[2019-10-27 06:45] VITALS: BMI 27.6
== END ==
PROVIDERS: PCP Student in an Organized Health Care Education/Training Program; Referring Provider Physician Assistant Medical; Visit Provider Physician Assistant Medical
DX: S55.191A Other specified injury of radial artery at forearm level, right arm, initial encounter (principal)
CPT/HCPCS: 93931

== ENCOUNTER → 2019-11-14 | Outpatient (CLI) | payer OTHER, SELFPAY ==
[2019-10-27 06:45] VITALS: BMI 27.6
== END | disposition home or self-care (01) ==
LOC: CVS 08:49
PROVIDERS: PCP Student in an Organized Health Care Education/Training Program; Referring Provider Physician Assistant Medical; Visit Provider Physician Assistant Medical
DX: I70.208 Unspecified atherosclerosis of native arteries of extremities, other extremity (principal)
CPT/HCPCS: 93931

== ENCOUNTER → 2019-12-13 | Outpatient (CLI) | payer OTHER, SELFPAY | END | disposition home or self-care (01) | LOC: CVS 08:41 | PROVIDERS: PCP Student in an Organized Health Care Education/Training Program; Referring Provider Physician Assistant Medical; Visit Provider Physician Assistant Medical | DX: I70.208 Unspecified atherosclerosis of native arteries of extremities, other extremity (principal) | CPT/HCPCS: 93931 ==

== ENCOUNTER 2021-05-24 05:34 | Inpatient (IN) | payer OTHER, SELFPAY ==
[2021-05-24] VITALS (17 sets, daily range): BP systolic 111–132; BP diastolic 74–96; PULSE 82–108; RESP 15–20; TEMP 36.2–37.8; O2SAT 85–96; BMI 27.3; BMI 26.1
--- NOTE | 2021-05-24 06:00 | EKG12_ITS ---
Test Reason : SOB Blood Pressure : / mmHG Vent. Rate : 105 BPM Atrial Rate : 105 BPM P-R Int : 152 ms QRS Dur : 084 ms QT Int : 344 ms P-R-T Axes : 020 048 028 degrees QTc Int : 454 ms Sinus tachycardia with Premature atrial complexes Otherwise normal ECG Confirmed by HERNANDEZ DOCKERY, JANUARY ([id number]), city editor CATHIE CORREA ([id number]) on 05/27/2021 8:06:55 AM Referred By: SANDRA Confirmed By:JANUARY NG MD
--- NOTE | 2021-05-24 06:01 | RAD_ITS ---
STUDY: X-RAY CHEST REASON FOR EXAM: Female, 56 years old. Cough TECHNIQUE: Portable, upright, AP chest radiograph COMPARISON: 12/26/2019 FINDINGS: Bilateral diffuse patchy opacities. There is no demonstrated pleural abnormality. Normal size heart. Normal mediastinum and kathrine. Normal visualized pulmonary arteries. Normal visualized aortic arch and descending thoracic aorta. Normal visualized thoracic spine. Normal visualized ribs, clavicles, and shoulders. There is no demonstrated abnormality of the visualized soft tissue structures of the upper abdomen. RAD/Chest 1 View (Portable) IMPRESSION: Bilateral multifocal pneumonia. Electronically Signed: Rolan Sanchez MD at 7:00 EDT Tel , Service support ,
[2021-05-24 06:12] LABS: Absolute Lymphocyte Count 1.19 X10^3/uL (0.83-4.51); Absolute Neutrophil Count 7.9 X10^3/uL (2.0-7.7); Basophil# 0.04 X10^3/uL; Basophil% 0.4 % (0-1); Eosinophil# 0.07 X10^3/uL; Eosinophils% 0.7 % (0-5); Hematocrit 44.8 % (37-47); Hemoglobin 14.9 g/dL (12.0-15.0); Lymphocyte # 1.19 X10^3/ul (0.83-4.51); Lymphocyte % 11.7 % (19-41); Mean Corp Hgb Conc 33.3 g/dL (32-36); Mean Corpuscular Hgb 29.6 pg (27.0-32.0); Mean Corpuscular Volume 89.1 fL (81-99); Mean Platelet Vol. 8.9 fl (6.2-12.0); Monocyte# 0.74 X10^3/uL; Monocyte% 7.2 % (0-10); NRBC Flagged by Analyzer 0 % (0-5); Neutrophil # 7.93 X10^3/uL (2.7-7.7); Neutrophil % 77.6 % (47-70); Platelet Count 453 K/mm3 (150-450); RBC Distribution Width CV 13.2 % (11.6-14.6); RBC Distribution Width SD 43.1 fl (35.1-43.9); Red Blood Count 5.03 M/mm3 (4.2-5.4); White Blood Count 10.2 K/mm3 (4.4-11.0)
--- NOTE | 2021-05-24 06:12 | ED.VIS.DYS ---
HPI <Dr. Jarvis Lara DO - Last Filed: 05/24/21 07:46> History of Present Illness Chief Complaint: Shortness of Breath Informant: patient Onset/Context/Timing Onset: Weeks (2) Context: gradual Timing: Continuous Worsened by: Nothing Relieved by: Nothing Associated Symptoms cough, fever, sore throat, subjective and white sputum; Negative for rhinorrhea or ear pain Chest Pain: Positive for None Narrative Narrative: Patient presents with shortness of breath that has been getting worse over the past 2 weeks. Patient states it has gradually getting worse. Patient states she tested positive for COVID-19 on 05/12/2021. Patient states nothing makes her breathing worse and nothing makes it better. Patient admits to a cough with some white sputum. Patient also admits to a sore throat. Patient admits to a low-grade fever at home. Patient denies any chest pain. Patient admits to a headache. PFSH <Dr. Jarvis Lara DO - Last Filed: 05/24/21 07:46> [facility] Medical History Essential (primary) hypertension HLD (hyperlipidemia) Kidney stones Non-smoker Home Medications albuterol sulfate 05/24/21 [History Last Taken Unknown] levofloxacin 05/24/21 [History Last Taken Unknown] Allergy/AdvReac Type Severity Reaction Status Date / Time No Known Allergies Allergy Verified 05/24/21 05:42 Surgical History AVNRT (AV marshall re-entry tachycardia) History of appendectomy History of left heart catheterization (10/27/19) Social History Smoking Status: Never smoker ROS <Dr. Jarvis Lara DO - Last Filed: 05/24/21 07:46> ROS ED Constitutional Constitutional ED: Reports fever(s); Denies chills Eyes Eyes: Denies blurry vision or change in vision ENT ENT ED: Reports sore throat; Denies rhinorrhea Cardiovascular Cardiovascular: Denies chest pain or palpitations Respiratory/Chest Respiratory/Chest: Reports cough and dyspnea Gastrointestinal Gastrointestinal: Reports nausea; Denies vomiting Genitourinary Genitourinary ED: Denies dysuria or hematuria Musculoskeletal Musculoskeletal: Denies back pain or neck pain Integumentary Denies abscess or rash Neurologic Neurologic: Denies headache(s) or weakness Allergic/Immunologic Allergic/Immunologic ED: Denies mouth swelling or urticaria EXAM <Dr. Jarvis Lara, DO - Last Filed: 05/24/21 07:46> Physical Exam Const Vital Signs: 05/24/21 05:35 05/24/21 05:38 05/24/21 06:31 Temperature 100.0 F H 100.0 F H Temperature Source Oral Oral Pulse Rate 103 H 108 H Respiratory Rate 20 H 20 H Respiratory Effort Short of Breath Blood Pressure 132/96 H 132/96 H Blood Pressure Mean 108 108 Pulse Ox 89 89 Oxygen Delivery Method Room Air Room Air Nasal Cannula Oxygen Flow Rate (L/min) 2 2 05/24/21 07:17 05/24/21 08:14 05/24/21 09:16 Temperature 98.7 F 98.7 F 98.4 F Temperature Source Oral Oral Oral Pulse Rate 107 H 100 94 Respiratory Rate 18 18 15 Respiratory Effort Blood Pressure 127/89 H 124/87 H 124/93 H Blood Pressure Mean 101 99 103 Pulse Ox 93 93 96 Oxygen Delivery Method Nasal Cannula Nasal Cannula Room Air Oxygen Flow Rate (L/min) 2 2 Positive well nourished and well developed General Appearance ED: well developed HEENT Reports moist mucous membranes Eyes PERRL and EOMs intact bilaterally Neck supple and no JVD Resp normal respiratory effort Auscultation: diminished lung sounds diffuse Cardio regular rate and regular rhythm GI non-tender and non-distended Auscultation: normoactive bowel sounds Palpation: soft Extremity normal to inspection General Extremety ED: Negative for tenderness Neuro oriented x3, CN's II-XII intact bilaterally and no sensory deficits noted Sensorium / Orientation: alert Motor Exam: strength 5/5 throughout Psych mental status grossly normal <Dr. Dariel Levy, DO - Last Filed: 05/24/21 09:45> Physical Exam Const Vital Signs: 05/24/21 05:35 05/24/21 05:38 05/24/21 06:31 Temperature 100.0 F H 100.0 F H Temperature Source Oral Oral Pulse Rate 103 H 108 H Respiratory Rate 20 H 20 H Respiratory Effort Short of Breath Blood Pressure 132/96 H 132/96 H Blood Pressure Mean 108 108 Pulse Ox 89 89 Oxygen Delivery Method Room Air Room Air Nasal Cannula Oxygen Flow Rate (L/min) 2 2 05/24/21 07:17 05/24/21 08:14 05/24/21 09:16 Temperature 98.7 F 98.7 F 98.4 F Temperature Source Oral Oral Oral Pulse Rate 107 H 100 94 Respiratory Rate 18 18 15 Respiratory Effort Blood Pressure 127/89 H 124/87 H 124/93 H Blood Pressure Mean 101 99 103 Pulse Ox 93 93 96 Oxygen Delivery Method Nasal Cannula Nasal Cannula Room Air Oxygen Flow Rate (L/min) 2 2 [facility] <Dr. Jarvis Lara, DO - Last Filed: 05/24/21 07:46> [facility] Narrative Medical decision making narrative: Patient was given Tylenol here. Patient was given morphine for her headache. Patient was given 6 puffs of albuterol inhaler. CBC was within normal limits. Comprehensive metabolic profile was essentially within normal limits. Lactate was normal. Portable chest x-ray was obtained. There is 1 view. On my interpretation, there are bilateral lower lobe infiltrates. Bony thorax is normal. There is no cardiomegaly. Radiologist also interpreted the x-rays and agrees. COVID-19 rapid antigen was obtained and was negative. COVID-19 PCR was obtained and is pending. Patient states her headache is improved. Case was discussed with the hospitalist. He felt that the patient would be a good candidate to go home with home oxygen. He also recommended obtaining a CT of the chest to make sure this is not from a pulmonary embolus. This was ordered and is pending. Care of the patient was turned over to the oncoming physician. Lab Data Attestation: I reviewed the patient's lab results. Labs: Laboratory Results - last 24 hr 05/24/21 05/24/21 05/24/21 05:40 05:40 05:40 WBC 10.2 RBC 5.03 Hgb 14.9 Hct 44.8 MCV 89.1 MCH 29.6 MCHC 33.3 RDW Std Deviation 43.1 RDW Coeff of Dago 13.2 Plt Count 453 H MPV 8.9 Immature Gran % (Auto) 2.400 H Neut % (Auto) 77.6 H Lymph % (Auto) 11.7 L [place] % (Auto) 7.2 Eos % (Auto) 0.7 Baso % (Auto) 0.4 Absolute Neuts (auto) 7.9 H Absolute Lymphs (auto) 1.19 Nucleated RBC % 0 Sodium 138 Potassium 3.2 L Chloride 103 Carbon Dioxide 27.0 Anion Gap 8 BUN 18 Creatinine 0.77 Estim Creat Clear Calc 73.41 Est GFR (MDRD) Af Amer 100 Est GFR (MDRD) Non-Af 83 BUN/Creatinine Ratio 23.5 H Glucose 119 H Lactic Acid 1.3 Calcium 9.2 Total Bilirubin 0.60 AST 26 ALT 56 Alkaline Phosphatase 78 Troponin I High Sens 5 Total Protein 7.5 Albumin 2.9 L Globulin 4.6 H Albumin/Globulin Ratio 0.6 L Radiography Chest X-Ray - ED: 1 View, Read by ED Physician, Read by Radiologist, Right Infiltrate and Left Infiltrate Diagnostic Testing: Radiology Impression Chest X-Ray 05/24/21 06:01 IMPRESSION: Bilateral multifocal pneumonia. Electronically Signed: Rolan Sanchez MD at 7:00 EDT Tel , Service support , Chest CTA 05/24/21 07:32 IMPRESSION: 1. No evidence of pulmonary embolus. 2. Diffuse bilateral groundglass opacities. Imaging features can be seen with COVID 19 pneumonia, though are nonspecific and can occur with a variety of infectious and noninfectious processes. Individualized dose optimization techniques were used for this CT. at 0815 Reported and signed by: Eleazar Díaz MD Electronically Signed: Eleazar Díaz MD at 8:14 EDT Tel , Service support , EKG Initial EKG: Attestation: I personally reviewed and interpreted this EKG as follows: Interpretation: No Acute Injury Pattern and Sinus Tachycardia (105 with occasional PACs) Prior EKG tracings: available for review Prior: Changed (Previous EKG shows atrial fibrillation with rapid ventricular response with a rate of 129. This was from 03/21/2004. Otherwise, there are no acute changes compared to previous EKG) <Dr. Dariel Levy, DO - Last Filed: 05/24/21 09:45> MDM Lab Data Labs: Laboratory Results - last 24 hr 05/24/21 05/24/21 05/24/21 05:40 05:40 05:40 WBC 10.2 RBC 5.03 Hgb 14.9 Hct 44.8 MCV 89.1 MCH 29.6 MCHC 33.3 RDW Std Deviation 43.1 RDW Coeff of [place]ago 13.2 Plt Count 453 H MPV 8.9 Immature Gran % (Auto) 2.400 H Neut % (Auto) 77.6 H Lymph % (Auto) 11.7 L [place] % (Auto) 7.2 Eos % (Auto) 0.7 Baso % (Auto) 0.4 Absolute Neuts (auto) 7.9 H Absolute Lymphs (auto) 1.19 Nucleated RBC % 0 Sodium 138 Potassium 3.2 L Chloride 103 Carbon Dioxide 27.0 Anion Gap 8 BUN 18 Creatinine 0.77 Estim Creat Clear Calc 73.41 Est GFR (MDRD) Af Amer 100 Est GFR (MDRD) Non-Af 83 BUN/Creatinine Ratio 23.5 H Glucose 119 H Lactic Acid 1.3 Calcium 9.2 Total Bilirubin 0.60 AST 26 ALT 56 Alkaline Phosphatase 78 Troponin I High Sens 5 Total Protein 7.5 Albumin 2.9 L Globulin 4.6 H Albumin/Globulin Ratio 0.6 L Radiography Diagnostic Testing: Radiology Impression Chest X-Ray 05/24/21 06:01 IMPRESSION: Bilateral multifocal pneumonia. Electronically Signed: Rolan Sanchez MD at 7:00 EDT Tel , Service support , Chest CTA 05/24/21 07:32 IMPRESSION: 1. No evidence of pulmonary embolus. 2. Diffuse bilateral groundglass opacities. Imaging features can be seen with COVID 19 pneumonia, though are nonspecific and can occur with a variety of infectious and noninfectious processes. Individualized dose optimization techniques were used for this CT. at 0815 Reported and signed by: Eleazar Díaz MD Electronically Signed: Eleazar Díaz MD at 8:14 EDT Tel , Service support , Discharge Plan Triage Chief Complaint: Shortness of Breath ED Provider: Dariel Levy Dx/Rx/DC Orders Clinical Impression: Pneumonia due to COVID-19 virus, Hypoxia Instructions: Coronavirus Disease 2019 (COVID-19): Caring for Yourself or Others Prescriptions: No Action albuterol sulfate 2.5 mg /3 mL (0.083 %) solution for nebulization RF: 0 levofloxacin 500 mg tablet RF: 0 Primary Care Provider: Jey Arthur Referrals: Jey Arthur DO [Primary Care Provider] - 3-5 Days
[2021-05-24] MEDS: Acetaminophen 500 MG Tablet 1000 MG PO (06:18)
[2021-05-24] MEDS: Morphine 4 MG/ML Syringe IV (06:19)
--- NOTE | 2021-05-24 06:22 | CPS ---
GAVE 6 PUFFS OF THE INHALER
--- NOTE | 2021-05-24 06:23 | CPS ---
GAVE 6 PUFFS
[2021-05-24 06:29] LABS: ALB/GLOB Ratio 0.6 RATIO (0.9-2.4); AST(SGOT) 26 U/L (15-37); Alanine Aminotransfer ALT/SGPT 56 U/L (13-56); Albumin, Serum 2.9 g/dL (3.2-5.0); Alkaline Phosphatase 78 U/L (45-117); Anion Gap 8 (5-15); BUN 18 mg/dL (7-18); BUN/Creat Ratio 23.5 RATIO (10-20); Calcium,Total 9.2 mg/dL (8.5-10.1); Chloride 103 mmol/L (98-107); Creatinine, Serum 0.77 mg/dL (0.55-1.02); EST Glomerular Filtration Rate 83 mL/min (>60); Est Glom Filt Rate - Afr Amer 100 mL/min (>60); Estimated Creatinine Clearance 73.41 ml/min; Globulin 4.6 g/dL (2.2-4.2); Glucose 119 mg/dL (74-106); Potassium 3.2 mmol/L (3.5-5.1); Protein, Total 7.5 g/dL (6.4-8.2); Sodium Level 138 mmol/L (136-145); Troponin-I HS 5 pg/mL (3.0-54.0)
[2021-05-24 06:30] LABS: Lactic Acid 1.3 mmol/L (0.4-1.9)
--- NOTE | 2021-05-24 07:32 | CT_ITS ---
EXAM: CT ANGIOGRAPHY CHEST WITHOUT AND WITH INTRAVENOUS CONTRAST : 1965 CLINICAL INDICATION: Dyspnea TECHNIQUE: Helically acquired angiography images were obtained of the chest without and with intravenous contrast. This CT exam was performed using one or more of the following dose reduction techniques: automated exposure control, adjustment of the mA and/or kV according to patient size, and/or use of iterative reconstruction technique. This report was created using [employer] report generation technology. MIP reconstructed images were created and reviewed. CONTRAST: IV 100mL Isovue-300 COMPARISON: None. FINDINGS: PULMONARY ARTERIES: Unremarkable. Normal in caliber. No evidence of pulmonary embolism. AORTA: Unremarkable. Normal in caliber. No evidence of dissection. GREAT VESSELS OF AORTIC ARCH: Unremarkable. Normal in caliber. No evidence of dissection. LUNGS AND PLEURAL SPACES: There are diffuse bilateral groundglass opacities. No mass. No pleural effusion or thickening. No pneumothorax. HEART: Unremarkable. Heart size is normal. No pericardial effusion. No signs of right heart strain, ratio of right ventricle to left ventricle measures less than 1. MEDIASTINUM: Unremarkable. No mediastinal or hilar adenopathy. Esophagus is unremarkable. No hiatal hernia. THYROID: Unremarkable. No thyroid lesions. BONES/JOINTS: Unremarkable. No suspicious lytic or blastic abnormality. CT/CTA Chest W/WO Contrast IMPRESSION: 1. No evidence of pulmonary embolus. 2. Diffuse bilateral groundglass opacities. Imaging features can be seen with COVID 19 pneumonia, though are nonspecific and can occur with a variety of infectious and noninfectious processes. Individualized dose optimization techniques were used for this CT. at 0815 Reported and signed by: Eleazar Díaz MD Electronically Signed: Eleazar Díaz MD at 8:14 EDT Tel , Service support ,
[2021-05-24] MEDS: dexAMETHasone 4 MG/ML Vial 6 MG IV (07:46)
[2021-05-24] MEDS: Ibuprofen 600 MG Tablet PO (09:14)
--- NOTE | 2021-05-24 09:37 | PCM.HP.STD ---
HPI - General General Date of Admission: 05/24/21 HPI Narrative RACHNA KHAN, is a 56 F came to ER for shortness of breath, cough and headache. She tested positive Covid in our clinic on 05/12. She had symptom onset on 05/10 with generalized body aches, malaise. Later on she became short of breath. Low-grade fever at home. Complain of cough with whitish sputum. Denies history of smoking, chronic lung disease. Has history of SVT status post ablation in 2012. She also has history of migraine currently having severe headache bifrontal, retro-orbital. At home, she is on triptan. In ED, earlier plan was to discharge on oxygen. CT chest was done and no pulmonary embolism found. Later on, she could not walk more than 7-8 steps due to extreme weakness therefore admitted. She denies fall. FORMERLY [facility] Medical History Alcohol abuse Essential (primary) hypertension HLD (hyperlipidemia) Kidney stones Migraines Non-smoker SVT (supraventricular tachycardia) Home Medications albuterol sulfate 2.5 mg INHALATION Q4H 05/24/21 [History Last Taken 05/23/21] galcanezumab-gnlm [Emgality Syringe] 120 mg SUBCUT QMONTH 05/24/21 [History Last Taken 05/08/21] levofloxacin 500 mg PO DAILY 05/24/21 [History Last Taken 05/23/21] rimegepant [Nurtec ODT] 75 mg PO DAILY PRN 05/24/21 [History Last Taken 05/23/21] Allergy/AdvReac Type Severity Reaction Status Date / Time No Known Allergies Allergy Verified 05/24/21 05:42 Surgical History AVNRT (AV marshall re-entry tachycardia) History of appendectomy History of left heart catheterization (10/27/19) Social History Smoking Status: Never smoker ROS ROS Narrative Constitutional: Reports fatigue and weakness. HEENT: Reports systems reviewed and no addt'l complaints, except as documented Respiratory/Chest: No chest pain. Mild shortness of breath on exertion Gastrointestinal: Denies diarrhea. Genitourinary: Denies burning urination or new urinary tract symptoms Musculoskeletal: Reports joint pain and limited range of motion Neurologic: Severe headache, migraine quality with nausea and vomiting. Denies seizure-like activity skin: No ulcer. No rash Endocrinology: Reports systems reviewed and no addt'l complaints, except as documented Hematologic/Lymphatic: Reports systems reviewed and no addt'l complaints, except as documented Rest 12 ROS are negative except as mentioned in HPI Vital Signs Vital Signs Vital Signs: 05/24/21 05:35 05/24/21 05:38 05/24/21 06:31 Temperature 100.0 F H 100.0 F H Temperature Source Oral Oral Pulse Rate 103 H 108 H Respiratory Rate 20 H 20 H Respiratory Effort Short of Breath Blood Pressure 132/96 H 132/96 H Blood Pressure Mean 108 108 Pulse Ox 89 89 Oxygen Delivery Method Room Air Room Air Nasal Cannula Oxygen Flow Rate (L/min) 2 2 05/24/21 07:17 05/24/21 08:14 05/24/21 09:16 Temperature 98.7 F 98.7 F 98.4 F Temperature Source Oral Oral Oral Pulse Rate 107 H 100 94 Respiratory Rate 18 18 15 Respiratory Effort Blood Pressure 127/89 H 124/87 H 124/93 H Blood Pressure Mean 101 99 103 Pulse Ox 93 93 96 Oxygen Delivery Method Nasal Cannula Nasal Cannula Room Air Oxygen Flow Rate (L/min) 2 2 Weight Weight: 164 lb 7.437 oz Body Mass Index (BMI) 27.3 Physical Exam Narrative General: Alert, Oriented x3, Cooperative HEENT: Severe headache mainly retro-orbital migraine quality. Atraumatic, PERRLA, EOMI, Normocephalic Oral: No Gingival or Mucosal Lesions/ Ulcerations Neck: Supple, No JVD, Negative Carotid Bruits Lungs: Air entry diminished in bilateral lung bases. No crepitation/rhonchi Cardiovascular: Regular rate, Regular Rhythm, Normal S1, Normal S2, No murmurs Abdomen: Bowel Sounds Present, Soft, Non Tender, Non-Distended : No renal angle tenderness. No suprapubic tenderness. Extremities: No edema, Capillary Refill Less than 3 Seconds Skin: No rashes, No breakdown Musculoskeletal: No Tenderness to Palpation of Joints or Extremities Neurological: Cranial nerves II-XII grossly intact, DTR 2+/4 and Symmetrical. Psych/Mental Status: In mild distress Results Lab / Micro Data Result Diagrams: 05/24/21 05:40 05/24/21 05:40 Labs: Laboratory Results - last 24 hr 05/24/21 05:40: WBC 10.2, RBC 5.03, Hgb 14.9, Hct 44.8, MCV 89.1, MCH 29.6, MCHC 33.3, RDW Std Deviation 43.1, RDW Coeff of Dago 13.2, Plt Count 453 H, MPV 8.9, Immature Gran % (Auto) 2.400 H, Neut % (Auto) 77.6 H, Lymph % (Auto) 11.7 L, [place] % (Auto) 7.2, Eos % (Auto) 0.7, Baso % (Auto) 0.4, Absolute Neuts (auto) 7.9 H, Absolute Lymphs (auto) 1.19, Nucleated RBC % 0 05/24/21 05:40: Sodium 138, Potassium 3.2 L, Chloride 103, Carbon Dioxide 27.0, Anion Gap 8, BUN 18, Creatinine 0.77, Estim Creat Clear Calc 73.41, Est GFR (MDRD) Af Amer 100, Est GFR (MDRD) Non-Af 83, BUN/Creatinine Ratio 23.5 H, Glucose 119 H, Calcium 9.2, Total Bilirubin 0.60, AST 26, ALT 56, Alkaline Phosphatase 78, Troponin I High Sens 5, Total Protein 7.5, Albumin 2.9 L, Globulin 4.6 H, Albumin/Globulin Ratio 0.6 L 05/24/21 05:40: Lactic Acid 1.3 Micro: Microbiology 05/24/21 06:08 Nasal Secretion SARS-CoV-2 Antigen (Rapid) - Final Radiology Impression Chest X-Ray 05/24/21 06:01 IMPRESSION: Bilateral multifocal pneumonia. Electronically Signed: Rolan Sanchez MD at 7:00 EDT Tel , Service support , Chest CTA 05/24/21 07:32 IMPRESSION: 1. No evidence of pulmonary embolus. 2. Diffuse bilateral groundglass opacities. Imaging features can be seen with COVID 19 pneumonia, though are nonspecific and can occur with a variety of infectious and noninfectious processes. Individualized dose optimization techniques were used for this CT. at 0815 Reported and signed by: Eleazar Díaz MD Electronically Signed: Eleazar Díaz MD at 8:14 EDT Tel , Service support , Assessment & Plan Assessment/Plan (1) Pneumonia due to COVID-19 virus: PLAN: This 56-year-old female is being admitted for bilateral COVID-19 pneumonia with hypoxia. Patient also had migraine headache 1. Bilateral COVID-19 pneumonia with mild hypoxia: Patient is aiming admitted MedSurg floor. Her symptom onset on 05/10. On Decadron. Out of time window for remdesivir. 6 CT chest reviewed. On incentive spirometry, chest physiotherapy and Mucinex. 2. Acute migraine headache episode with history of chronic migraine: Maxalt and 1 dose of Phenergan IM given. 3. SVT status post ablation in 2012: Currently stable. EKG shows sinus tachycardia at 105 bpm. Current heart rate is 92/min. 4. Other chronic comorbidities include essential hypertension, dyslipidemia and history of left ureteral calculus: Home medication reconciliation done. Living will/advanced directive/end of life care: Patient does not have living will or advanced directive. After discussion of benefits/risks procedures involved with full code, DNR CC arrest and DNR CC, the patient opted for full code. Patient does want artificial life support including intubation, tube feed, ventilator and/chest compression, central venous catheter, vasopressor and DC shock if needed Total time spent in [id number] encounter in discussion of advanced directive 16 minutes. Charges/Coding Visit Charges Inpatient E&M: 99634 Init Hosp L3 Procedures Hospitalists Procedures: 38981 Advncd Care Plan 30 Min
--- NOTE | 2021-05-24 09:47 | NURSING ---
MED SURG [facility] COVID 10 PNEUMONITIS, HYPOXIA, GENERALIZED WEAKNESS
--- NOTE | 2021-05-24 11:31 | NURSING ---
05/12/21 - tested positive urgent care 05/10/21- symptoms started.
--- NOTE | 2021-05-24 11:32 | NURSING ---
has symptoms - started after pts. - has been quarantining at home.
[2021-05-24 13:16] LABS: Magnesium 2.4 mg/dL (1.6-2.6)
[2021-05-24 13:49] LABS: CPK Total, Creatine Kinase 44 U/L (26-192); LDH 330 U/L (84-246)
[2021-05-24 13:52] LABS: Prothrombin Time (Protime)PT. 12.8 SECONDS (11.7-14.9)
[2021-05-24 14:01] LABS: Fibrinogen 636 mg/dl (203-444)
[2021-05-24 14:05] LABS: Procalcitonin < 0.04 ng/mL (0.00-0.09)
[2021-05-24] MEDS: Enoxaparin 30 MG/0.3 ML Syringe SC ×2 (14:47→21:14)
[2021-05-24] MEDS: Potassium Chloride Oral Tablet 20 MEQ 40 MEQ PO ×2 (14:48→18:18)
[2021-05-24] MEDS: proMETHazine 25 MG/ML Syringe 12.5 MG IM (15:09)
[2021-05-24] MEDS: Rizatriptan Benzoate 10 MG Tablet PO (15:10)
[2021-05-24] MEDS: levoFLOXacin 500 MG Tablet PO (18:17)
--- NOTE | 2021-05-24 18:26 | NURSING ---
Pt educated and is aware of the need for sputum sample and urine for legionella.
[2021-05-24] MEDS: guaiFENesin/D-Methorphan TAB.SR.12H 1 TABLET PO (21:13)
[2021-05-24] MEDS: 0.9% Saline Lock 10 ML Syringe IV (21:13)
[2021-05-25] VITALS (14 sets, daily range): BP systolic 101–124; BP diastolic 68–79; PULSE 67–99; RESP 16–20; TEMP 36.1–37.3; O2SAT 92–95
[2021-05-25 05:42] LABS: Absolute Lymphocyte Count 1.15 X10^3/uL (0.83-4.51); Absolute Neutrophil Count 7.5 X10^3/uL (2.0-7.7); Basophil# 0.03 X10^3/uL; Basophil% 0.3 % (0-1); Eosinophil# 0.12 X10^3/uL; Eosinophils% 1.2 % (0-5); Hematocrit 42.4 % (37-47); Hemoglobin 13.8 g/dL (12.0-15.0); Lymphocyte # 1.15 X10^3/ul (0.83-4.51); Lymphocyte % 11.6 % (19-41); Mean Corp Hgb Conc 32.5 g/dL (32-36); Mean Corpuscular Hgb 29.6 pg (27.0-32.0); Monocyte% 8.1 % (0-10); NRBC Flagged by Analyzer 0 % (0-5); Platelet Count 441 K/mm3 (150-450); RBC Distribution Width CV 13.2 % (11.6-14.6); RBC Distribution Width SD 44.5 fl (35.1-43.9); Red Blood Count 4.66 M/mm3 (4.2-5.4); White Blood Count 9.9 K/mm3 (4.4-11.0)
[2021-05-25 06:07] LABS: ALB/GLOB Ratio 0.6 RATIO (0.9-2.4); AST(SGOT) 66 U/L (15-37); Alanine Aminotransfer ALT/SGPT 112 U/L (13-56); Albumin, Serum 2.5 g/dL (3.2-5.0); Alkaline Phosphatase 72 U/L (45-117); Anion Gap 7 (5-15); BUN 25 mg/dL (7-18); Calcium,Total 9.2 mg/dL (8.5-10.1); Chloride 106 mmol/L (98-107); Creatinine, Serum 0.66 mg/dL (0.55-1.02); EST Glomerular Filtration Rate 99 mL/min (>60); Est Glom Filt Rate - Afr Amer 120 mL/min (>60); Estimated Creatinine Clearance 85.64 ml/min; Globulin 4.3 g/dL (2.2-4.2); Glucose 101 mg/dL (74-106); Potassium 4.6 mmol/L (3.5-5.1); Protein, Total 6.8 g/dL (6.4-8.2); Sodium Level 139 mmol/L (136-145)
[2021-05-25] MEDS: guaiFENesin/D-Methorphan TAB.SR.12H 1 TABLET PO ×2 (08:42→22:44)
[2021-05-25] MEDS: Enoxaparin 30 MG/0.3 ML Syringe SC ×2 (08:42→22:44)
[2021-05-25] MEDS: levoFLOXacin 500 MG Tablet PO (08:42)
[2021-05-25] MEDS: dexAMETHasone 4 MG Tablet 6 MG PO (08:42)
[2021-05-25] MEDS: Rizatriptan Benzoate 10 MG Tablet PO (10:22)
--- NOTE | 2021-05-25 13:42 | PCM.PN.HOSP ---
Subjective Subjective Seen and examined. On 4 L of oxygen. Heart rate in 90/min. Patient has cough and chest congestion. Objective Data Objective Data Vital Signs: Vital Signs Temp Pulse Resp BP Pulse Ox 97.9 F 91 18 120/79 95 05/25/21 12:59 05/25/21 12:59 05/25/21 12:59 05/25/21 12:59 05/25/21 12:59 Oxygen Flow Rate (L/min) 4 Oxygen Delivery Method Nasal Cannula Weight: 156 lb 11.979 oz Body Mass Index (BMI) 26.1 Intake & Output: Intake and Output for Last 24 Hours 05/23/21 05/24/21 05/25/21 23:59 23:59 23:59 Intake Total 360 / 360 800 / 800 Output Total 300 / 300 Balance 60 / 60 800 / 800 Medical Nutrition Assessment Dietitian: Malnutrition Criteria Met Start: 05/24/21 15:41 Freq: Status: Active Protocol: Document 05/24/21 15:42 KASHMIR (Rec: 05/24/21 15:42 KASHMIR [id number]) Nutrition Malnutrition Evidence of Malnutrition Exists Yes Malnutrition (severe): Acute Illness/Injury Evidenced By Suboptimal Energy Intake ( Severe),Weight Loss (Severe) Clinical Problem Acute Disease or Injury Related Malnutrition Etiology related to acute illness ( COVID) Signs/Symptoms as evidenced by <50% po intake x >5 days and 2.1% wt loss x 1 week Status Active Problem Recommendation Dietitian Recommendations/Changes Will continue current diet as ordered Will provide ensure pudding or magic cup w/ lunch and dinner for increased nutrition if consumed. Lab / Micro Data Result Diagrams: 05/25/21 05:20 05/25/21 05:20 Labs: Laboratory Results - last 24 hr 05/24/21 05:40: Lactate Dehydrogenase 330 H, Total Creatine Kinase 44, C-React Prot Ext Range 98.30 H 05/24/21 05:40: Procalcitonin < 0.04 05/24/21 13:23: PT 12.8, INR 1.0, Fibrinogen 636 H 05/25/21 05:20: WBC 9.9, RBC 4.66, Hgb 13.8, Hct 42.4, MCV 91.0, MCH 29.6, MCHC 32.5, RDW Std Deviation 44.5 H, RDW Coeff of Dago 13.2, Plt Count 441, MPV 9.0, Immature Gran % (Auto) 2.800 H, Neut % (Auto) 76.0 H, Lymph % (Auto) 11.6 L, [place] % (Auto) 8.1, Eos % (Auto) 1.2, Baso % (Auto) 0.3, Absolute Neuts (auto) 7.5, Absolute Lymphs (auto) 1.15, Nucleated RBC % 0 05/25/21 05:20: Sodium 139, Potassium 4.6, Chloride 106, Carbon Dioxide 26.0, Anion Gap 7, BUN 25 H, Creatinine 0.66, Estim Creat Clear Calc 85.64, Est GFR (MDRD) Af Amer 120, Est GFR (MDRD) Non-Af 99, BUN/Creatinine Ratio 38.0 H, Glucose 101, Calcium 9.2, Total Bilirubin 0.40, AST 66 H, ALT 112 H, Alkaline Phosphatase 72, Total Protein 6.8, Albumin 2.5 L, Globulin 4.3 H, Albumin/Globulin Ratio 0.6 L Micro: Microbiology 05/24/21 20:15 Interface Orders Streptococcus pneumoniae Antigen (M - Final 05/24/21 20:15 Interface Orders Legionella Antigen - Final 05/24/21 06:08 Nasal Secretion SARS-CoV-2 Antigen (Rapid) - Final Physical Exam Narrative General: Alert, Oriented x3, Cooperative HEENT: Headache resolved. Atraumatic, PERRLA, EOMI, Normocephalic Oral: No Gingival or Mucosal Lesions/ Ulcerations Neck: Supple, No JVD, Negative Carotid Bruits Lungs: Air entry diminished in bilateral lung bases. No crepitation/rhonchi. Oxygen requirement increased Cardiovascular: Regular rate, Regular Rhythm, Normal S1, Normal S2, No murmurs Abdomen: Bowel Sounds Present, Soft, Non Tender, Non-Distended : No renal angle tenderness. No suprapubic tenderness. Extremities: No edema, Capillary Refill Less than 3 Seconds Skin: No rashes, No breakdown Musculoskeletal: No Tenderness to Palpation of Joints or Extremities Neurological: Cranial nerves II-XII grossly intact, DTR 2+/4 and Symmetrical. Psych/Mental Status: Normal affect. Assessment & Plan Assessment/Plan (1) Pneumonia due to COVID-19 virus: PLAN: This 56-year-old female is being admitted for bilateral COVID-19 pneumonia with hypoxia. Patient also had migraine headache 1. Bilateral COVID-19 pneumonia with mild hypoxia: Patient is aiming admitted MedSur floor. Her symptom onset on 05/10. On Decadron. Out of time window for remdesivir. 6 CT chest reviewed. On incentive spirometry, chest physiotherapy and Mucinex. 05/25: On 4 L of oxygen. Inflammatory markers elevated. Magnesium and phosphorus level normal. ALT and AST elevated about 2 to 3 times. Procalcitonin normal. 2. Acute migraine headache episode with history of chronic migraine: 05/25: On ibuprofen as needed for headache. Maxalt 10 mg 1 dose as needed for severe headache 3. SVT status post ablation in 2012: Currently stable. EKG shows sinus tachycardia at 105 bpm. Current heart rate is 92/min. 4. Other chronic comorbidities include essential hypertension, dyslipidemia and history of left ureteral calculus: Home medication reconciliation done. Living will/advanced directive/end of life care: Patient does not have living will or advanced directive. After discussion of benefits/risks procedures involved with full code, DNR CC arrest and DNR CC, the patient opted for full code. Patient does want artificial life support including intubation, tube feed, ventilator and/chest compression, central venous catheter, vasopressor and DC shock if needed Total time spent in [id number] encounter in discussion of advanced directive 16 minutes. Charges/Coding Visit Charges Inpatient E&M: 07369 Subs Hosp L2
--- NOTE | 2021-05-25 14:51 | CASEMGMT ---
Face to Face with patient for initial transition planning/care coordination assessment. KENA LINN introduced self and role at [facility], voices understanding. Care providers, pharmacy, and demographics verified. PCP: Jerson Specialists: None [facility]erred [facility]acy[facility] Insurance: MMO Prescription Benefit: Yes Living Will/HPOA: None LNOK: Price Living Arrangements: Pt lives in a two story home with her and adult daughter. Pt has been independent with ADLs, driving, and denies difficulties with steps or concerns at discharge re: self care. Pt states her and daughter will be available to assist as needed. Transportation: Pt drives, her would be able to assist if needed. DME/HHC: None Plan: Pt to return home with family support. Pt agreeable to home O2 if needed. Verbally discussed list of DME providers and pt denies any preference. Agreeable to [facility]. Green sheet with home O2 set-up instructions placed on pt's paper chart. Eileen Wood RN CM
[2021-05-25] MEDS: 0.9% Saline Lock 10 ML Syringe IV (22:44)
[2021-05-26] VITALS (10 sets, daily range): BP systolic 105–125; BP diastolic 61–79; PULSE 61–105; RESP 15–20; TEMP 36.3–36.8; O2SAT 91–96
[2021-05-26 07:31] LABS: Absolute Lymphocyte Count 1.49 X10^3/uL (0.83-4.51); Basophil# 0.07 X10^3/uL; Basophil% 0.5 % (0-1); Eosinophil# 0.04 X10^3/uL; Eosinophils% 0.3 % (0-5); Hematocrit 42.1 % (37-47); Hemoglobin 13.6 g/dL (12.0-15.0); Lymphocyte # 1.49 X10^3/ul (0.83-4.51); Lymphocyte % 11.6 % (19-41); Mean Corp Hgb Conc 32.3 g/dL (32-36); Mean Corpuscular Hgb 29.4 pg (27.0-32.0); Mean Corpuscular Volume 91.1 fL (81-99); Mean Platelet Vol. 9.4 fl (6.2-12.0); Monocyte# 0.78 X10^3/uL; NRBC Flagged by Analyzer 0 % (0-5); Neutrophil # 10.01 X10^3/uL (2.7-7.7); Neutrophil % 77.6 % (47-70); Platelet Count 508 K/mm3 (150-450); RBC Distribution Width CV 12.8 % (11.6-14.6); RBC Distribution Width SD 42.8 fl (35.1-43.9); Red Blood Count 4.62 M/mm3 (4.2-5.4); White Blood Count 12.9 K/mm3 (4.4-11.0)
[2021-05-26 08:09] LABS: ALB/GLOB Ratio 0.6 RATIO (0.9-2.4); AST(SGOT) 34 U/L (15-37); Alanine Aminotransfer ALT/SGPT 88 U/L (13-56); Albumin, Serum 2.6 g/dL (3.2-5.0); Alkaline Phosphatase 72 U/L (45-117); Anion Gap 8 (5-15); BUN 28 mg/dL (7-18); BUN/Creat Ratio 37.2 RATIO (10-20); Calcium,Total 9.3 mg/dL (8.5-10.1); Chloride 104 mmol/L (98-107); Creatinine, Serum 0.75 mg/dL (0.55-1.02); EST Glomerular Filtration Rate 85 mL/min (>60); Est Glom Filt Rate - Afr Amer 102 mL/min (>60); Estimated Creatinine Clearance 75.37 ml/min; Globulin 4.3 g/dL (2.2-4.2); Glucose 90 mg/dL (74-106); Potassium 4.1 mmol/L (3.5-5.1); Protein, Total 6.9 g/dL (6.4-8.2); Sodium Level 138 mmol/L (136-145)
[2021-05-26] MEDS: dexAMETHasone 4 MG Tablet 6 MG PO (09:40)
[2021-05-26] MEDS: guaiFENesin/D-Methorphan TAB.SR.12H 1 TABLET PO ×2 (09:40→22:18)
[2021-05-26] MEDS: levoFLOXacin 500 MG Tablet PO (09:40)
[2021-05-26] MEDS: Enoxaparin 30 MG/0.3 ML Syringe SC ×2 (09:41→22:18)
--- NOTE | 2021-05-26 13:14 | PN.HOSP_ITS ---
Subjective Subjective Patient on 2-3 L of oxygen. Has cough. Has been taking Mucinex almost 4 2 weeks Objective Data Objective Data Vital Signs: Vital Signs Temp Pulse Resp BP Pulse Ox 98.0 F 105 H 18 105/61 95 05/26/21 09:43 05/26/21 09:43 05/26/21 09:43 05/26/21 09:43 05/26/21 09:43 Oxygen Flow Rate (L/min) 2 Oxygen Delivery Method Nasal Cannula Weight: 156 lb 11.979 oz Body Mass Index (BMI) 26.1 Intake & Output: Intake and Output for Last 24 Hours 05/24/21 05/25/21 05/26/21 23:59 23:59 23:59 Intake Total 360 / 360 800 / 800 300 / 300 Output Total 300 / 300 Balance 60 / 60 800 / 800 300 / 300 Medical Nutrition Assessment Dietitian: Malnutrition Criteria Met Start: 05/24/21 15:41 Freq: Status: Active Protocol: Document 05/24/21 15:42 KASHMIR (Rec: 05/24/21 15:42 KASHMIR [id number]) Nutrition Malnutrition Evidence of Malnutrition Exists Yes Malnutrition (severe): Acute Illness/Injury Evidenced By Suboptimal Energy Intake ( Severe),Weight Loss (Severe) Clinical Problem Acute Disease or Injury Related Malnutrition Etiology related to acute illness ( COVID) Signs/Symptoms as evidenced by <50% po intake x >5 days and 2.1% wt loss x 1 week Status Active Problem Recommendation Dietitian Recommendations/Changes Will continue current diet as ordered Will provide ensure pudding or magic cup w/ lunch and dinner for increased nutrition if consumed. Lab / Micro Data Result Diagrams: 05/26/21 05:50 05/26/21 05:50 Labs: Laboratory Results - last 24 hr 05/26/21 05:50: WBC 12.9 H, RBC 4.62, Hgb 13.6, Hct 42.1, MCV 91.1, MCH 29.4, MCHC 32.3, RDW Std Deviation 42.8, RDW Coeff of Dago 12.8, Plt Count 508 H, MPV 9.4, Immature Gran % (Auto) 4.000 H, Neut % (Auto) 77.6 H, Lymph % (Auto) 11.6 L , [place] % (Auto) 6.0, Eos % (Auto) 0.3, Baso % (Auto) 0.5, Absolute Neuts (auto) 10.0 H, Absolute Lymphs (auto) 1.49, Nucleated RBC % 0 05/26/21 05:50: Sodium 138, Potassium 4.1, Chloride 104, Carbon Dioxide 26.0, Anion Gap 8, BUN 28 H, Creatinine 0.75, Estim Creat Clear Calc 75.37, Est GFR (MDRD) Af Amer 102, Est GFR (MDRD) Non-Af 85, BUN/Creatinine Ratio 37.2 H, Glucose 90, Calcium 9.3, Total Bilirubin 0.50, AST 34, ALT 88 H, Alkaline Phosphatase 72, Total Protein 6.9, Albumin 2.6 L, Globulin 4.3 H, Albumin/Globulin Ratio 0.6 L Micro: Microbiology 05/25/21 18:10 Sputum, Expectorated/Coughed Gram Stain - Final 05/24/21 06:25 Blood Culture (Wb) - Right Hand Blood Culture - Preliminary No growth in 48 hours. 05/24/21 05:40 Blood Culture (Wb) - Anticubital Left Blood Culture - Preliminary No growth in 48 hours. 05/24/21 20:15 Interface Orders Streptococcus pneumoniae Antigen (M - Final 05/24/21 20:15 Interface Orders Legionella Antigen - Final 05/24/21 06:08 Nasal Secretion SARS-CoV-2 Antigen (Rapid) - Final Physical Exam Narrative General: Alert, Oriented x3, Cooperative HEENT: Headache resolved. Atraumatic, PERRLA, EOMI, Normocephalic Oral: No Gingival or Mucosal Lesions/ Ulcerations Neck: Supple, No JVD, Negative Carotid Bruits Lungs: Air entry diminished in bilateral lung bases. No crepitation/rhonchi. Mild dyspnea on exertion. Cardiovascular: Regular rate, Regular Rhythm, Normal S1, Normal S2, No murmurs Abdomen: Bowel Sounds Present, Soft, Non Tender, Non-Distended : No renal angle tenderness. No suprapubic tenderness. Extremities: No edema, Capillary Refill Less than 3 Seconds Skin: No rashes, No breakdown Musculoskeletal: No Tenderness to Palpation of Joints or Extremities Neurological: Cranial nerves II-XII grossly intact, DTR 2+/4 and Symmetrical. Psych/Mental Status: Normal affect. Assessment & Plan Assessment/Plan (1) Pneumonia due to COVID-19 virus: PLAN: This 56-year-old female is being admitted for bilateral COVID-19 pn eumonia with hypoxia. Patient also had migraine headache 1. Bilateral COVID-19 pneumonia with bacterial superinfection with mild hypoxia: Patient is aiming admitted MedSurg floor. Her symptom onset on 05/10. On Decadron. Out of time window for remdesivir. 6 CT chest reviewed. On incentive spirometry, chest physiotherapy and Mucinex. 05/25: On 4 L of oxygen. Inflammatory markers elevated. Magnesium and phosphorus level normal. ALT and AST elevated about 2 to 3 times. Procalcitonin normal. 05/26: On 2 L of oxygen. Urinary antigens are negative. Blood culture negative for 48 hours. ALT 88. Platelet count 580. Preliminary Gram stain shows 2+ gram-positive cocci and rare gram-negative rods. Patient on antibiotic Levaquin that was started by PCP on 05/21. She will complete 7 days tomorrow on 05/27 and then discontinue. 2. Acute migraine headache episode with history of chronic migraine: 05/25: On ibuprofen as needed for headache. Maxalt 10 mg 1 dose as needed for severe headache 3. SVT status post ablation in 2012: Currently stable. EKG shows sinus tachycardia at 105 bpm. Current heart rate is 92/min. 4. Other chronic comorbidities include essential hypertension, dyslipidemia and history of left ureteral calculus: Home medication reconciliation done. Living will/advanced directive/end of life care: Patient does not have living will or advanced directive. After discussion of benefits/risks procedures involved with full code, DNR CC arrest and DNR CC, the patient opted for full code. Patient does want artificial life support including intubation, tube feed, ventilator and/chest compression, central venous catheter, vasopressor and DC shock if needed Total time spent in [id number] encounter in discussion of advanced directive 16 minutes. Microbiology Past 72 Hours 05/25/21 18:10 Sputum, Expectorated/Coughed Gram Stain - Final 05/24/21 06:25 Blood Culture (Wb) - Right Hand Blood Culture - Preliminary No growth in 48 hours. 05/24/21 05:40 Blood Culture (Wb) - Anticubital Left Blood Culture - Preliminary No growth in 48 hours. 05/24/21 20:15 Interface Orders Streptococcus pneumoniae Antigen (M - Final 05/24/21 20:15 Interface Orders Legionella Antigen - Final 05/24/21 06:08 Nasal Secretion SARS-CoV-2 Antigen (Rapid) - Final Laboratory Results 05/26/21 05:50: WBC 12.9 H, RBC 4.62, Hgb 13.6, Hct 42.1, MCV 91.1, MCH 29.4, MCHC 32.3, RDW Std Deviation 42.8, RDW Coeff of Dago 12.8, Plt Count 508 H, MPV 9.4, Immature Gran % (Auto) 4.000 H, Neut % (Auto) 77.6 H, Lymph % (Auto) 11.6 L , [place] % (Auto) 6.0, Eos % (Auto) 0.3, Baso % (Auto) 0.5, Absolute Neuts (auto) 10.0 H, Absolute Lymphs (auto) 1.49, Nucleated RBC % 0 05/26/21 05:50: Sodium 138, Potassium 4.1, Chloride 104, Carbon Dioxide 26.0, Anion Gap 8, BUN 28 H, Creatinine 0.75, Estim Creat Clear Calc 75.37, Est GFR (MDRD) Af Amer 102, Est GFR (MDRD) Non-Af 85, BUN/Creatinine Ratio 37.2 H, Glucose 90, Calcium 9.3, Total Bilirubin 0.50, AST 34, ALT 88 H, Alkaline Phosphatase 72, Total Protein 6.9, Albumin 2.6 L, Globulin 4.3 H, Albumin/Globulin Ratio 0.6 L Charges/Coding Visit Charges Inpatient E&M: 34309 Subs Hosp L2
[2021-05-27] VITALS (8 sets, daily range): BP systolic 107–124; BP diastolic 69–85; PULSE 67–97; RESP 16–18; TEMP 36.2–36.9; O2SAT 90–96
[2021-05-27 07:13] LABS: Absolute Neutrophil Count 10.3 X10^3/uL (2.0-7.7); Basophil# 0.06 X10^3/uL; Basophil% 0.4 % (0-1); Eosinophil# 0.02 X10^3/uL; Eosinophils% 0.1 % (0-5); Hematocrit 41.1 % (37-47); Hemoglobin 13.7 g/dL (12.0-15.0); Lymphocyte % 13.8 % (19-41); Mean Corp Hgb Conc 33.3 g/dL (32-36); Mean Corpuscular Hgb 30.1 pg (27.0-32.0); Mean Corpuscular Volume 90.3 fL (81-99); Mean Platelet Vol. 9.1 fl (6.2-12.0); Monocyte# 0.86 X10^3/uL; Monocyte% 6.2 % (0-10); NRBC Flagged by Analyzer 0 % (0-5); Neutrophil # 10.28 X10^3/uL (2.7-7.7); Neutrophil % 74.8 % (47-70); Platelet Count 495 K/mm3 (150-450); RBC Distribution Width CV 12.7 % (11.6-14.6); RBC Distribution Width SD 42.4 fl (35.1-43.9); Red Blood Count 4.55 M/mm3 (4.2-5.4); White Blood Count 13.8 K/mm3 (4.4-11.0)
[2021-05-27 07:45] LABS: ALB/GLOB Ratio 0.7 RATIO (0.9-2.4); AST(SGOT) 20 U/L (15-37); Alanine Aminotransfer ALT/SGPT 66 U/L (13-56); Albumin, Serum 2.7 g/dL (3.2-5.0); Alkaline Phosphatase 67 U/L (45-117); Anion Gap 7 (5-15); BUN 26 mg/dL (7-18); BUN/Creat Ratio 32.7 RATIO (10-20); Calcium,Total 9.4 mg/dL (8.5-10.1); Chloride 104 mmol/L (98-107); EST Glomerular Filtration Rate 79 mL/min (>60); Est Glom Filt Rate - Afr Amer 96 mL/min (>60); Estimated Creatinine Clearance 70.66 ml/min; Globulin 4.1 g/dL (2.2-4.2); Glucose 91 mg/dL (74-106); Protein, Total 6.8 g/dL (6.4-8.2); Sodium Level 138 mmol/L (136-145)
--- NOTE | 2021-05-27 09:13 | PCM.PN.HOSP ---
Objective Data Objective Data Vital Signs: Vital Signs Temp Pulse Resp BP Pulse Ox 97.2 F L 74 16 124/85 H 92 05/27/21 04:18 05/27/21 04:18 05/27/21 04:18 05/27/21 04:18 05/27/21 08:31 Oxygen Flow Rate (L/min) 2 Oxygen Delivery Method Room Air Weight: 71.1 kg Body Mass Index (BMI) 26.1 Intake & Output: Intake and Output for Last 24 Hours 05/25/21 05/26/21 05/27/21 23:59 23:59 23:59 Intake Total 800 / 800 800 / 1000 200 / 200 Balance 800 / 800 800 / 1000 200 / 200 Medical Nutrition Assessment Dietitian: Malnutrition Criteria Met Start: 05/24/21 15:41 Freq: Status: Active Protocol: Document 05/24/21 15:42 KASHMIR (Rec: 05/24/21 15:42 SLA [id number]) Nutrition Malnutrition Evidence of Malnutrition Exists Yes Malnutrition (severe): Acute Illness/Injury Evidenced By Suboptimal Energy Intake ( Severe),Weight Loss (Severe) Clinical Problem Acute Disease or Injury Related Malnutrition Etiology related to acute illness ( COVID) Signs/Symptoms as evidenced by <50% po intake x >5 days and 2.1% wt loss x 1 week Status Active Problem Recommendation Dietitian Recommendations/Changes Will continue current diet as ordered Will provide ensure pudding or magic cup w/ lunch and dinner for increased nutrition if consumed. Lab / Micro Data Result Diagrams: 05/27/21 06:06 05/27/21 06:06 Labs: Laboratory Results - last 24 hr 05/27/21 06:06: WBC 13.8 H, RBC 4.55, Hgb 13.7, Hct 41.1, MCV 90.3, MCH 30.1, MCHC 33.3, RDW Std Deviation 42.4, RDW Coeff of Dago 12.7, Plt Count 495 H, MPV 9.1, Immature Gran % (Auto) 4.700 H, Neut % (Auto) 74.8 H, Lymph % (Auto) 13.8 L, Johnston % (Auto) 6.2, Eos % (Auto) 0.1, Baso % (Auto) 0.4, Absolute Neuts (auto) 10.3 H, Absolute Lymphs (auto) 1.90, Nucleated RBC % 0 05/27/21 06:06: Sodium 138, Potassium 4.0, Chloride 104, Carbon Dioxide 27.0, Anion Gap 7, BUN 26 H, Creatinine 0.80, Estim Creat Clear Calc 70.66, Est GFR (MDRD) Af Amer 96, Est GFR (MDRD) Non-Af 79, BUN/Creatinine Ratio 32.7 H, Glucose 91, Calcium 9.4, Total Bilirubin 0.40, AST 20, ALT 66 H, Alkaline Phosphatase 67, Total Protein 6.8, Albumin 2.7 L, Globulin 4.1, Albumin/Globulin Ratio 0.7 L Micro: Microbiology 05/25/21 18:10 Sputum, Expectorated/Coughed Gram Stain - Final 05/24/21 06:25 Blood Culture (Wb) - Right Hand Blood Culture - Preliminary No growth in 48 hours. 05/24/21 05:40 Blood Culture (Wb) - Anticubital Left Blood Culture - Preliminary No growth in 48 hours. 05/24/21 20:15 Interface Orders Streptococcus pneumoniae Antigen (M - Final 05/24/21 20:15 Interface Orders Legionella Antigen - Final 05/24/21 06:08 Nasal Secretion SARS-CoV-2 Antigen (Rapid) - Final Assessment & Plan Assessment/Plan (1) Pneumonia due to COVID-19 virus: PLAN: This 56-year-old female is being admitted for bilateral COVID-19 pneumonia with hypoxia. Patient also had migraine headache 1. Bilateral COVID-19 pneumonia with bacterial superinfection with mild hypoxia: [facility]. Her symptom onset on 05/10. On Decadron. Out of time window for remdesivir. 6 CT chest reviewed. On incentive spirometry, chest physiotherapy and Mucinex. 05/25: On 4 L of oxygen. Inflammatory markers elevated. Magnesium and phosphorus level normal. ALT and AST elevated about 2 to 3 times. Procalcitonin normal. 05/26: On 2 L of oxygen. Urinary antigens are negative. Blood culture negative for 48 hours. ALT 88. Platelet count 580. Preliminary Gram stain shows 2+ gram-positive cocci and rare gram-negative rods. Patient on antibiotic Levaquin that was started by PCP on 05/21. She will complete 7 days tomorrow on 05/27 and then discontinue. 2. Acute migraine headache episode with history of chronic migraine: 05/25: On ibuprofen as needed for headache. Maxalt 10 mg 1 dose as needed for severe headache 3. SVT status post ablation in 2013: Currently stable. EKG shows sinus tachycardia at 105 bpm. Current heart rate is 92/min. 4. Other chronic comorbidities include essential hypertension, dyslipidemia and history of left ureteral calculus: Home medication reconciliation done. Living will/advanced directive/end of life care: Patient does not have living will or advanced directive. After discussion of benefits/risks procedures involved with full code, DNR CC arrest and DNR CC, the patient opted for full code. Patient does want artificial life support including intubation, tube feed, ventilator and/chest compression, central venous catheter, vasopressor and DC shock if needed Total time spent in gorw-ph-jiod encounter in discussion of advanced directive 16 minutes. Microbiology Past 72 Hours 05/25/21 18:10 Sputum, Expectorated/Coughed Gram Stain - Final 05/24/21 06:25 Blood Culture (Wb) - Right Hand Blood Culture - Preliminary No growth in 48 hours. 05/24/21 05:40 Blood Culture (Wb) - Anticubital Left Blood Culture - Preliminary No growth in 48 hours. 05/24/21 20:15 Interface Orders Streptococcus pneumoniae Antigen (M - Final 05/24/21 20:15 Interface Orders Legionella Antigen - Final 05/24/21 06:08 Nasal Secretion SARS-CoV-2 Antigen (Rapid) - Final Laboratory Results 05/26/21 05:50: WBC 12.9 H, RBC 4.62, Hgb 13.6, Hct 42.1, MCV 91.1, MCH 29.4, MCHC 32.3, RDW Std Deviation 42.8, RDW Coeff of Dago 12.8, Plt Count 508 H, MPV 9.4, Immature Gran % (Auto) 4.000 H, Neut % (Auto) 77.6 H, Lymph % (Auto) 11.6 L, Johnston % (Auto) 6.0, Eos % (Auto) 0.3, Baso % (Auto) 0.5, Absolute Neuts (auto) 10.0 H, Absolute Lymphs (auto) 1.49, Nucleated RBC % 0 05/26/21 05:50: Sodium 138, Potassium 4.1, Chloride 104, Carbon Dioxide 26.0, Anion Gap 8, BUN 28 H, Creatinine 0.75, Estim Creat Clear Calc 75.37, Est GFR (MDRD) Af Amer 102, Est GFR (MDRD) Non-Af 85, BUN/Creatinine Ratio 37.2 H, Glucose 90, Calcium 9.3, Total Bilirubin 0.50, AST 34, ALT 88 H, Alkaline Phosphatase 72, Total Protein 6.9, Albumin 2.6 L, Globulin 4.3 H, Albumin/Globulin Ratio 0.6 L
[2021-05-27] MEDS: guaiFENesin/D-Methorphan TAB.SR.12H 1 TABLET PO (10:41)
[2021-05-27] MEDS: dexAMETHasone 4 MG Tablet 6 MG PO (10:41)
[2021-05-27] MEDS: levoFLOXacin 500 MG Tablet PO (10:41)
[2021-05-27] MEDS: Enoxaparin 30 MG/0.3 ML Syringe SC (10:41)
[2021-05-27] MEDS: Ibuprofen 600 MG Tablet PO (10:42)
--- NOTE | 2021-05-27 10:54 | DS.PCM_ITS ---
Providers Date of Admission: 05/24/21 Primary Care Physician: Dr. Jey Arthur, DO Reason For Visit: COVID 19 WITH HYPOXIA Diagnosis Discharge Diagnosis (1) Pneumonia due to COVID-19 virus: Status: Acute Code(s): U07.1 - COVID-19; J12.82 - Pneumonia due to coronavirus disease 2019 Medications at Discharge Home Medications Emgality Syringe 120 mg SUBCUT QMONTH 05/24/21 Nurtec ODT 75 mg PO DAILY PRN 05/24/21 albuterol sulfate 2.5 mg INHALATION Q4H 05/24/21 levofloxacin 500 mg PO DAILY 05/24/21 dexamethasone 6 mg PO DAILY #7 tab 05/27/21 Hospital Course Summary of Care Provided Minutes Spent on Discharge: 35 Hospital Course: Patient is a 56-year-old lady admitted with increasing shortnes s of breath. A diagnosis of SARS-CoV-2 pneumonia made admitted to regular nursing floor 1. Acute hypoxic respiratory failure secondary to SARS-CoV-2 pneumonia ?Patient managed with Decadron as well as supplemental oxygen. Patient was out of the window for remdesivir. Condition did improve discharged home on Decadron 2. Acute migrainous headache ?Managed per protocol 3. Hypertension - Blood pressure mean controlled 4. History of SVT ?Status post ablation 5. Dyslipidemia ?Managed with diet 6. History of left ureteral calculi ?Currently asymptomatic 7. DVT prophylaxis Lovenox Physical Exam Const alert General Appearance: cooperative Resp normal respiratory effort Cardio regular rate and regular rhythm Medical Records Data Medical Nutrition Assessment Dietitian: Malnutrition Criteria Met Start: 05/24/21 15:41 Freq: Status: Active Protocol: Document 05/24/21 15:42 KASHMIR (Rec: 05/24/21 15:42 KASHMIR [id number]) Nutrition Malnutrition Evidence of Malnutrition Exists Yes Malnutrition (severe): Acute Illness/Injury Evidenced By Suboptimal Energy Intake ( Severe),Weight Loss (Severe) Clinical Problem Acute Disease or Injury Related Malnutrition Etiology related to acute illness ( COVID) Signs/Symptoms as evidenced by <50% po intake x >5 days and 2.1% wt loss x 1 week Status Active Problem Recommendation Dietitian Recommendations/Changes Will continue current diet as ordered Will provide ensure pudding or magic cup w/ lunch and dinner for increased nutrition if consumed. Weight / BMI Weight Weight: 71.1 kg Body Mass Index (BMI) 26.1 ABG / Lab / Microbiology Data Result Diagrams: 05/27/21 06:06 05/27/21 06:06 Laboratory: Laboratory Results - last 24 hr 05/27/21 06:06: WBC 13.8 H, RBC 4.55, Hgb 13.7, Hct 41.1, MCV 90.3, MCH 30.1, MCHC 33.3, RDW Std Deviation 42.4, RDW Coeff of Dago 12.7, Plt Count 495 H, MPV 9.1, Immature Gran % (Auto) 4.700 H, Neut % (Auto) 74.8 H, Lymph % (Auto) 13.8 L , [place] % (Auto) 6.2, Eos % (Auto) 0.1, Baso % (Auto) 0.4, Absolute Neuts (auto) 10.3 H, Absolute Lymphs (auto) 1.90, Nucleated RBC % 0 05/27/21 06:06: Sodium 138, Potassium 4.0, Chloride 104, Carbon Dioxide 27.0, Anion Gap 7, BUN 26 H, Creatinine 0.80, Estim Creat Clear Calc 70.66, Est GFR (MDRD) Af Amer 96, Est GFR (MDRD) Non-Af 79, BUN/Creatinine Ratio 32.7 H, Glucose 91, Calcium 9.4, Total Bilirubin 0.40, AST 20, ALT 66 H, Alkaline Phosphatase 67, Total Protein 6.8, Albumin 2.7 L, Globulin 4.1, Albumin/Globulin Ratio 0.7 L Microbiology: Microbiology 05/25/21 18:10 Sputum, Expectorated/Coughed Gram Stain - Final 05/24/21 06:25 Blood Culture (Wb) - Right Hand Blood Culture - Preliminary No growth in 48 hours. 05/24/21 05:40 Blood Culture (Wb) - Anticubital Left Blood Culture - Preliminary No growth in 48 hours. 05/24/21 20:15 Interface Orders Streptococcus pneumoniae Antigen (M - Final 05/24/21 20:15 Interface Orders Legionella Antigen - Final 05/24/21 06:08 Nasal Secretion SARS-CoV-2 Antigen (Rapid) - Final D/C Instructions Discharge Diet: No restrictions Discharge Activity: Return to Normal Activity Call your doctor if you observe: Fever of 101 or Higher, Shortness of breath, Fainting spells and Chest pain Meaningful Use Info Meaningful Use Diagnoses (Choose all that apply): None applicable Discharge Plan Admission Admit Date/Time: 05/24/21 09:35 Attending Provider: Lacho Davis Primary Care Provider: Jey Arthur Instructions Patient Instructions: Coronavirus Disease 2019 (COVID-19): Caring for Yourself or Others Discharge Orders/Prescriptions Prescriptions: New dexamethasone 4 mg Tablet 6 mg PO DAILY Qty: 7 RF: 0 Continued albuterol sulfate 2.5 mg /3 mL (0.083 %) solution for nebulization 2.5 mg inhalation Q4H RF: 0 levofloxacin 500 mg tablet 500 mg PO DAILY RF: 0 Emgality Syringe 120 mg/mL syringe 120 mg SUBCUT QMONTH RF: 0 Nurtec ODT 75 mg tablet,disintegrating 75 mg PO DAILY PRN (Reason: mirgraine) RF: 0 Referrals / Follow Up: Jey Arthur DO [Primary Care Provider] - 3-5 Days Disposition Disposition (needs filled in before D/C Order can be placed): Home, Self Care Charges/Coding Visit Charges Inpatient E&M: 55229 Disch Hosp
--- NOTE | 2021-05-27 11:58 | CASEMGMT ---
Pt did not qualify for home O2 at this time.
--- NOTE | 2021-05-28 15:42 | CASEMGMT ---
ANA DC F/u Call DC Date: 05.27.21 DC Diagnosis: Pneumonia due to COVID-19 virus DC Disposition: Home Lace/Strata: 04/25 Called patient's listed cell phone number, answered. Introduced self and role. Patient states that she has been doing pretty good, maintaining her oxygen saturations, still feeling a little SOB with exertion but trying to remain active. Has a f/u appointment on Thursday. confirmed picked up her DC medications. Denies any issues, questions, or concerns with [facility], medications or f/u. S. ANA Harris
== END 2021-05-27 14:00 | disposition home or self-care (01) | DRG 177 ==
LOC: ED 07:51 → MS3 10:48
PROVIDERS: Emergency Medicine; Admitting Provider Internal Medicine; Emergency Provider Student in an Organized Health Care Education/Training Program; PCP Student in an Organized Health Care Education/Training Program; Visit Provider Internal Medicine
DX: U07.1 COVID-19 (principal); J12.82 Pneumonia due to coronavirus disease 2019; J96.01 Acute respiratory failure with hypoxia; E43 Unspecified severe protein-calorie malnutrition; J15.9 Unspecified bacterial pneumonia; E78.5 Hyperlipidemia, unspecified; I10 Essential (primary) hypertension; G43.909 Migraine, unspecified, not intractable, without status migrainosus; R00.0 Tachycardia, unspecified; Z79.899 Other long term (current) drug therapy; Z68.26 Body mass index [BMI] 26.0-26.9, adult
CPT/HCPCS: 36415; 71045; 71275; 80053; 82550; 83605; 83615; 83735; 84100; 84145; 84484; 85025; 85384; 85610; 86140; 87040; 87070; 87205; 87426; 87449; 87635; 93005; 94640; 94667; 94668; 97161; 97530; 99251; 99285; Q9967; U0005; A4216; G0463; U0003

== ENCOUNTER 2024-08-08 13:47 | Observation (INO) | payer OTHER, SELFPAY ==
[2024-08-08 13:48] VITALS: BP 146/102; PULSE 80; RESP 16; TEMP 36.1; O2SAT 99; BMI 28.8
[2024-08-08] MEDS: Ketorolac 15 MG/ML Vial IV ×2 (14:16→22:56)
[2024-08-08] MEDS: Ondansetron 4 MG/2 ML Vial IV (14:16)
--- NOTE | 2024-08-08 14:20 | CT_ITS ---
STUDY: CT ABDOMEN AND PELVIS WITHOUT CONTRAST REASON FOR EXAM: Female, 59 years old. Kidney Stone -- Left-sided pain RADIATION DOSAGE (If Supplied By Facility): CTDIvol = ( 11.59 ) mGy, DLP = ( 668.65 ) mGycm TECHNIQUE: Transaxial images were obtained from the dome of the diaphragm to the symphysis pubis without oral contrast, and without intravenous contrast. Sagittal and coronal images were reconstructed. Individualized dose optimization techniques were used for this CT. COMPARISON: Comparison is made with prior study dated August 10, 2018. FINDINGS: Mild increased markings at the lung bases suggestive of a atelectasis. Mild coronary artery calcification is seen. Normal liver. Normal gallbladder and extrahepatic biliary system. Normal spleen. Normal pancreas. Normal bilateral adrenal glands. There are tiny nonobstructive right intrarenal calculi. Nonobstructive calculi in the left kidney. Mild degree of left hydronephrosis and proximal left hydroureter due to a 3 mm calculus in the distal portion of the left ureter. There is a small hiatal hernia. Normal small intestine. Normal colon. The appendix is visualized and appears normal. There is scattered atherosclerotic calcification of the abdominal aorta, without a demonstrated aneurysm. Normal inferior vena cava. Normal retroperitoneum. Normal urinary bladder. Normal abdominal wall. Grade 2 to grade 3 anterolisthesis of L5 on S1 due to spondylolysis of the pars interarticularis of the L5 vertebrae. CT/Abdomen/Pelvis without Cont IMPRESSION: Nonobstructive bilateral intrarenal calculi. Left hydronephrosis and proximal left hydroureter due to a 3 mm calculus in the distal portion of the left ureter. Electronically Signed: Reilly Pacheco MD at 14:52 EST ,
[2024-08-08 14:24] LABS: Absolute Neutrophil Count 6.1 X10^3/uL (2.0-7.7); Basophil# 0.04 X10^3/uL; Basophil% 0.4 % (0-1); Eosinophil# 0.03 X10^3/uL; Eosinophils% 0.3 % (0-5); Hematocrit 43.7 % (37-47); Hemoglobin 14.6 g/dL (12.0-15.0); Lymphocyte % 30.7 % (19-41); Mean Corp Hgb Conc 33.4 g/dL (32-36); Mean Corpuscular Hgb 30.3 pg (27.0-32.0); Mean Corpuscular Volume 90.7 fL (81-99); Mean Platelet Vol. 10.1 fl (6.2-12.0); Monocyte# 0.58 X10^3/uL; Monocyte% 5.9 % (0-10); NRBC Flagged by Analyzer 0 % (0-5); Neutrophil # 6.11 X10^3/uL (2.7-7.7); Neutrophil % 62.5 % (47-70); Platelet Count 274 K/mm3 (150-450); Red Blood Count 4.82 M/mm3 (4.2-5.4); White Blood Count 9.8 K/mm3 (4.4-11.0)
[2024-08-08 14:37] LABS: Anion Gap 6 (5-15); BUN 31 mg/dL (7-18); BUN/Creat Ratio 28.7 RATIO (10-20); Calcium,Total 9.7 mg/dL (8.5-10.1); Chloride 108 mmol/L (98-107); Creatinine, Serum 1.08 mg/dL (0.55-1.02); EST Glomerular Filtration Rate 55 mL/min (>60); Est Glom Filt Rate - Afr Amer 67 mL/min (>60); Estimated Creatinine Clearance 58.07 ml/min; Glucose 121 mg/dL (74-106); Potassium 3.7 mmol/L (3.5-5.1); Sodium Level 140 mmol/L (136-145)
[2024-08-08 14:59] LABS: Color, Urine Yellow (Yellow); Glucose, Dipstick Normal (Normal); Ketone-Dipstick Negative (Negative); Leukocyte Esterase-Dipstick 25 /ul (Negative); Nitrite-Dipstick Negative (Negative); Occult Blood-Urine 50 /ul (Negative); Protein-Dipstick 30 mg/dl (Negative); Specific Gravity, Urine 1.025 (1.002-1.030); Urine Bilirubin Dipstick Negative (Negative); Urine Clarity Sl. Cloudy (Clear); Urine Urobilinogen Normal (Normal)
[2024-08-08 15:14] LABS: Hyaline Cast 0-5 SEEN /lpf (0-5); Mucous, Urine 1+ /hpf (<or=2+); Red Blood Cells-Urine 0-5 SEEN /hpf (0-5); White Blood Cells 0-5 SEEN /hpf (0-5)
[2024-08-08 15:15] LABS: Bacteria 1+ /hpf (None Seen); Squamous Epithelial Cells - UA 0-5 SEEN /hpf (5-10)
[2024-08-08 16:02] VITALS: BP 149/95; PULSE 72; RESP 18; TEMP 36.9; O2SAT 98
[2024-08-08] MEDS: Morphine 4 MG/ML Syringe IV (16:03)
[2024-08-08] MEDS: Ceftriaxone 2 GM in 0.9% Normal Saline (50mL MB+) 50 ML IV (16:09)
--- NOTE | 2024-08-08 16:16 | EX.ED.DYSGE1 ---
HPI History of Present Illness Chief Complaint: Flank Pain Detail of Chief Complaint: Abrupt left sided abdominal/flank pain Informant: patient Onset/Context/Timing Onset: Today Context: Sudden Onset Timing: Continuous Quality: Patent Location: Over the left kidney Current Severity: Moderate Maximum Severity: Severe Worsened by: Nothing Relieved by: Did take 1 Percocet prior to arrival Associated Symptoms Associated Symptoms: Nausea without vomiting Narrative Narrative: Patient is a 59-year-old female. She has history of renal calculi. She states she passed a stone 1 to 2 months ago. She presents with urgency, frequency and flank pain. She reports nausea. Denies fever, chills night sweats. She denies blood in her urine. She has no other symptoms. Prior similar symptoms: Yes Recent Illness/Hospitalization: No PFSH PFSH Medical History Alcohol abuse SVT (supraventricular tachycardia) Migraines Pneumonia due to COVID-19 virus (05/2021) Kidney stones Non-smoker Essential (primary) hypertension HLD (hyperlipidemia) Left ureteral calculus Home Medications ?Medication ?Instructions ?Recorded ?Last Taken ?Type galcanezumab-gnlm 120 mg/mL 120 mg subcut QMONTH Check with 05/24/21 05/08/21 History subcutaneous syringe (Emgality) primary doctor rimegepant 75 mg disintegrating 75 mg PO DAILY PRN mirgraine 05/24/21 05/23/21 History tablet (Nurtec ODT) rizatriptan 10 mg tablet 10 mg PO UD migraine 08/08/24 Unknown History rosuvastatin 10 mg tablet 10 mg PO QHS 08/08/24 Unknown History sumatriptan succinate 50 mg tablet 50 mg PO UD 08/08/24 Unknown History Allergy/AdvReac Type Severity Reaction Status Date / Time No Known Allergies Allergy Verified 08/08/24 13:48 Surgical History History of appendectomy History of left heart catheterization (10/27/19) AVNRT (AV marshall re-entry tachycardia) Social History Smoking Status: Never smoker ROS ROS ED Constitutional Constitutional ED: Denies chills, fever(s), subjective or sweats Eyes Eyes: Denies blurry vision, change in vision or diplopia ENT ENT ED: Denies ear pain, rhinorrhea or sore throat Cardiovascular Cardiovascular: Denies chest pain Respiratory/Chest Respiratory/Chest: Denies dyspnea Gastrointestinal Gastrointestinal: Reports abdominal pain and nausea; Denies diarrhea or vomiting Genitourinary Genitourinary ED: Reports urinary frequency and other Details: Urgency. ; Denies dysuria or hematuria Musculoskeletal Musculoskeletal: Denies arthralgias or myalgias Integumentary Denies rash Neurologic Neurologic: Denies paresthesias or weakness Hematologic/Lymphatic Hematologic/Lymphatic: Reports systems reviewed and no addt'l complaints, except as documented EXAM Physical Exam Const Vital Signs: 08/08/24 13:48 08/08/24 16:02 Temperature 97 F L 98.5 F Temperature Source Temporal Oral Pulse Rate 80 72 Respiratory Rate 16 18 Blood Pressure 146/102 H 149/95 H Blood Pressure Mean 116 113 Pulse Ox 99 98 Oxygen Delivery Method Room Air Room Air Positive well nourished and well developed General Appearance ED: well developed; Negative for cyanotic, diaphoretic, NAD or pallor HEENT Reports moist mucous membranes HEENT Narrative: Head is atraumatic normocephalic. Ears normal. Eyes EOMs intact bilaterally General Eye ED: Negative for pale conjunctiva or scleral icterus Neck supple and no JVD Resp normal respiratory effort and clear to auscultation bilaterally Cardio regular rate, regular rhythm, S1 normal heart sound, S2 normal heart sound and no murmurs GI normal to inspection, nondistended, normoactive bowel sounds, non-distended and no masses; Negative for non-tender or hepatosplenomegaly GI Narrative: There is pain to palpation over the left kidney with deep palpation only. There is also left CVA tenderness. Back/Spine General Back: CVA tenderness left Thoracic Spine / Upper Back: Negative for thoracic spinal tenderness Lumbar Spine / Lower Back: Negative for lumbar spinal tenderness Extremity normal to inspection Neuro oriented x3 and CN's II-XII intact bilaterally Sensorium / Orientation: alert Psych mental status grossly normal Skin no rashes or lesions noted, no wounds and skin turgor normal General Skin Exam: Negative for jaundice or pallor MDM MDM MDM Narrative Medical decision making narrative: Differential diagnosis would be pyelonephritis, obstructing ureteral stone, obstructing renal stone. Patient was treated with ketorolac. After she was informed of her laboratory results she states she is having increased pain. Additional morphine was ordered. Patient appears uncomfortable. She cannot find a position to comfort. Will obtain UA to assess for infection. CBC and BMP to assess white count differential and renal function. CT of the abdomen pelvis without contrast was ordered. Prior records were reviewed. Her urologist is Dr. Brothers. History & Record Review Additional record(s) reviewed:: Prior outpatient record (Operative report from July 2018 was reviewed. Operative report for obstructing stone for December 2016 was read.), Prior ED visit and Prior labs Lab Data Attestation: I reviewed the patient's lab results. Lab results narrative: CBC is normal. Electrolyte panel reveals slight elevation of creatinine of 1.08 with an estimated GFR 55. Urinalysis is remarkable for soft gravity of 1.25, blood and leukoesterase on macro. Micro reveals 0-5 RBCs, 0-5 WBCs and 0-5 squamous epithelial cells with 1+ bacteria. Because there is bacteria in the urine culture was sent patient was treated with a 2 g of Rocephin. Case was discussed with Dr. Brothers. He reviewed the films and states that the stone is 3 mm in cross-section however it is 6 to 7 mm in length. He feels that she will have discomfort. He was informed that she is requesting more pain medicine. Patient was given option of admission for surgery tomorrow. She is willing to stay. Patient to be admitted Dr. Brothers service. Labs: Laboratory Results - last 24 hr 08/08/24 08/08/24 14:00 14:47 WBC 9.8 RBC 4.82 Hgb 14.6 Hct 43.7 MCV 90.7 MCH 30.3 MCHC 33.4 RDW Std Deviation 43.0 RDW Coeff of Dago 13.0 Plt Count 274 MPV 10.1 Immature Gran % (Auto) 0.200 Neut % (Auto) 62.5 Lymph % (Auto) 30.7 Nash % (Auto) 5.9 Eos % (Auto) 0.3 Baso % (Auto) 0.4 Absolute Neuts (auto) 6.1 Absolute Lymphs (auto) 3.00 Nucleated RBC % 0 Sodium 140 Potassium 3.7 Chloride 108 H Carbon Dioxide 26.0 Anion Gap 6 BUN 31 H Creatinine 1.08 H Estim Creat Clear Calc 58.07 Est GFR (MDRD) Af Amer 67 Est GFR (MDRD) Non-Af 55 L BUN/Creatinine Ratio 28.7 H Glucose 121 H Calcium 9.7 Urine Color Yellow Urine Clarity Sl. Cloudy Urine pH 6.0 Ur Specific [place] 1.025 Urine Protein 30 H Urine Glucose (UA) Normal Urine Ketones Negative Urine Occult Blood 50 H Urine Nitrite Negative Urine Bilirubin Negative Urine Urobilinogen Normal Ur Leukocyte Esterase 25 H Urine RBC 0-5 SEEN Urine WBC 0-5 SEEN Ur Squamous Epith Cells 0-5 SEEN Urine Bacteria 1+ Hyaline Casts 0-5 SEEN Urine Mucus 1+ Radiography Diagnostic Testing: Clinical Impression(s) from Imaging Studies Abdomen/Pelvis CT 08/08/24 14:20 IMPRESSION: Nonobstructive bilateral intrarenal calculi. Left hydronephrosis and proximal left hydroureter due to a 3 mm calculus in the distal portion of the left ureter. Electronically Signed: Reilly Pacheco MD at 14:52 EST , Discharge Plan Triage Chief Complaint: Flank Pain ED Provider: Jt Queen Dx/Rx/DC Orders Clinical Impression: Hydronephrosis with urinary obstruction due to ureteral calculus, HLD (hyperlipidemia), Essential (primary) hypertension, Ureteral stone, Bacteria in urine, Multiple kidney stones Prescriptions: No Action Emgality Syringe 120 mg/mL syringe 120 mg SUBCUT QMONTH Patient Comments: INJECT THE CONTENTS OF 1 SYRINGE SUBCUTANEOUSLY ONCE A MONTH Nurtec ODT 75 mg tablet,disintegrating 75 mg PO DAILY PRN (Reason: mirgraine) Patient Comments: DISSOLVE 1 TABLET BY MOUTH ONCE DAILY NEEDED Primary Care Provider: Jey Arthur Referrals: Jey Arthur, [Primary Care Provider] - Print Language: Frisian Disposition Disposition: [facility]
--- NOTE | 2024-08-08 16:17 | HP.PCM_ITS ---
HPI - General General Date of Admission: 08/08/24 Chief Complaint: ureteral stone HPI Narrative RACHNA KHAN, is a 59 F who presents to the ER with a stone in the mid left uretere severe pain, WBC normal, no fevers or chills, u/a okay stone in about 6mm in size pt will be admitted to see if can pass, possible surgery tomorrow if can't pass stone. FOR[facility]LY [facility] Medical History Alcohol abuse SVT (supraventricular tachycardia) Migraines Pneumonia due to COVID-19 virus (05/2021) Kidney stones Non-smoker Essential (primary) hypertension HLD (hyperlipidemia) Left ureteral calculus Home Medications ?Medication ?Instructions ?Recorded ?Last Taken ?Type galcanezumab-gnlm 120 mg/mL 120 mg subcut QMONTH Check with 05/24/21 05/08/21 History subcutaneous syringe (Emgality) primary doctor rimegepant 75 mg disintegrating 75 mg PO DAILY PRN mirgraine 05/24/21 05/23/21 History tablet (Nurtec ODT) Allergy/AdvReac Type Severity Reaction Status Date / Time No Known Allergies Allergy Verified 08/08/24 13:48 Surgical History History of appendectomy History of left heart catheterization (10/27/19) AVNRT (AV marshall re-entry tachycardia) Social History Smoking Status: Never smoker ROS Constitutional Constitutional: Denies chills, fever(s) or malaise Eyes Eyes: Denies blurry vision or change in vision ENT HEENT: Reports none Cardiovascular Cardiovascular: Denies chest pain or palpitations Respiratory/Chest Respiratory/Chest: Denies cough or shortness of breath with exertion Gastrointestinal Gastrointestinal: Denies abdominal pain, constipation or diarrhea Musculoskeletal Musculoskeletal: Denies back pain, joint stiffness or joint swelling Integumentary Integumentary: Denies dry skin, jaundice, lesions or rash Neurologic Neurologic: Denies confusion, syncope or weakness Psychiatric Psychiatric: Reports none; Denies anxiety or depression Endocrine Endocrinology: Denies excessive sweating, fatigue or flushing Hematologic/Lymphatic Hematologic/Lymphatic: Denies anemia, easy bleeding or easy bruising Vital Signs Vital Signs Vital Signs: 08/08/24 13:48 08/08/24 16:02 Temperature 97 F L 98.5 F Temperature Source Temporal Oral Pulse Rate 80 72 Respiratory Rate 16 18 Blood Pressure 146/102 H 149/95 H Blood Pressure Mean 116 113 Pulse Ox 99 98 Oxygen Delivery Method Room Air Room Air Weight Weight: 78.471 kg Body Mass Index (BMI) 28.8 Physical Exam Const alert and oriented x3 General Appearance: cooperative HEENT normocephalic and head/scalp atraumatic Eyes PERRL and EOMs intact bilaterally Neck supple, no JVD and no carotid bruits Resp normal respiratory effort, normal air movement and clear to auscultation bilaterally Cardio regular rate and no murmurs GI normal to inspection, nondistended, normoactive bowel sounds and soft to palpation Extremity normal capillary refill General Extremity: no tenderness to palpation of joints or extremities; Negative for edema Skin no rashes or lesions noted and no wounds General Skin Exam: no breakdown Neuro CN's II-XII intact bilaterally Psych affect normal Appearance: appropriate Results Lab / Micro Data 08/08/24 14:00 08/08/24 14:00 Labs: Laboratory Results - last 24 hr 08/08/24 14:00: WBC 9.8, RBC 4.82, Hgb 14.6, Hct 43.7, MCV 90.7, MCH 30.3, MCHC 33.4, RDW Std Deviation 43.0, RDW Coeff of Dago 13.0, Plt Count 274, MPV 10.1, Immature Gran % (Auto) 0.200, Neut % (Auto) 62.5, Lymph % (Auto) 30.7, [place] % (Auto) 5.9, Eos % (Auto) 0.3, Baso % (Auto) 0.4, Absolute Neuts (auto) 6.1, Absolute Lymphs (auto) 3.00, Nucleated RBC % 0, Sodium 140, Potassium 3.7, C hloride 108 H, Carbon Dioxide 26.0, Anion Gap 6, BUN 31 H, Creatinine 1.08 H, Estim Creat Clear Calc 58.07, Est GFR (MDRD) Af Amer 67, Est GFR (MDRD) Non-Af 55 L, BUN/Creatinine Ratio 28.7 H, Glucose 121 H, Calcium 9.7 12/16/24 14:47: Urine Color Yellow, Urine Clarity Sl. Cloudy, Urine pH 6.0, Ur Specific [place] 1.025, Urine Protein 30 H, Urine Glucose (UA) Normal, Urine Ketones Negative, Urine Occult Blood 50 H, Urine Nitrite Negative, Urine Bilirubin Negative, Urine Urobilinogen Normal, Ur Leukocyte Esterase 25 H, Urine RBC 0-5 SEEN, Urine WBC 0-5 SEEN, Ur Squamous Epith Cells 0-5 SEEN, Urine Bacteria 1+, Hyaline Casts 0-5 SEEN, Urine Mucus 1+ Imaging Radiology Impression Abdomen/Pelvis CT 08/08/24 14:20 IMPRESSION: Nonobstructive bilateral intrarenal calculi. Left hydronephrosis and proximal left hydroureter due to a 3 mm calculus in the distal portion of the left ureter. Electronically Signed: Reilly Pacheco MD at 14:52 EST , Assessment & Plan Assessment/Plan (1) Ureteral stone: PLAN: admit for stone npo at [place] possible surgical intevention. laser and stent.
[2024-08-08 16:21] VITALS: BP 149/95; PULSE 83; RESP 18; TEMP 36.8; O2SAT 96
[2024-08-08 17:29] VITALS: BMI 28.8
[2024-08-08 17:35] VITALS: BP 135/81; PULSE 67; RESP 18; TEMP 36.6; O2SAT 96
[2024-08-08] MEDS: 0.9% Normal Saline (1000mL) 1,000 ML 125 ML IV (17:53)
[2024-08-08 20:36] VITALS: BP 138/84; PULSE 70; RESP 15; TEMP 36.9; O2SAT 96
[2024-08-08] MEDS: Docusate Sodium 100 MG Capsule 200 MG PO (21:31)
[2024-08-08 23:21] VITALS: RESP 15
[2024-08-09] VITALS (12 sets, daily range): BP systolic 123–158; BP diastolic 74–113; PULSE 62–98; RESP 15–16; TEMP 36.1–36.7; O2SAT 93–100; BMI 28.8
[2024-08-09] MEDS: 0.9% Normal Saline (1000mL) 1,000 ML 125 ML IV (02:06)
[2024-08-09 06:58] LABS: Absolute Lymphocyte Count 2.05 X10^3/uL (0.83-4.51); Absolute Neutrophil Count 2.9 X10^3/uL (2.0-7.7); Basophil# 0.02 X10^3/uL; Basophil% 0.4 % (0-1); Eosinophil# 0.05 X10^3/uL; Eosinophils% 0.9 % (0-5); Hematocrit 40.4 % (37-47); Hemoglobin 12.9 g/dL (12.0-15.0); Lymphocyte # 2.05 X10^3/ul (0.83-4.51); Lymphocyte % 37.8 % (19-41); Mean Corp Hgb Conc 31.9 g/dL (32-36); Mean Corpuscular Hgb 29.7 pg (27.0-32.0); Mean Corpuscular Volume 92.9 fL (81-99); Mean Platelet Vol. 9.9 fl (6.2-12.0); Monocyte# 0.39 X10^3/uL; Monocyte% 7.2 % (0-10); NRBC Flagged by Analyzer 0 % (0-5); Neutrophil % 53.5 % (47-70); Platelet Count 223 K/mm3 (150-450); RBC Distribution Width CV 13.1 % (11.6-14.6); RBC Distribution Width SD 45.1 fl (35.1-43.9); Red Blood Count 4.35 M/mm3 (4.2-5.4); White Blood Count 5.4 K/mm3 (4.4-11.0)
[2024-08-09 08:00] LABS: Anion Gap 4 (5-15); BUN 21 mg/dL (7-18); BUN/Creat Ratio 26.1 RATIO (10-20); Calcium,Total 8.4 mg/dL (8.5-10.1); Chloride 113 mmol/L (98-107); Creatinine, Serum 0.81 mg/dL (0.55-1.02); EST Glomerular Filtration Rate 77 mL/min (>60); Est Glom Filt Rate - Afr Amer 94 mL/min (>60); Glucose 91 mg/dL (74-106); Sodium Level 142 mmol/L (136-145)
[2024-08-09] MEDS: Morphine 2 MG/ML Syringe IV ×2 (09:09→12:26)
--- NOTE | 2024-08-09 12:18 | CASEMGMT ---
Addendum entered by Helena Lawrence 08/09/24 14:51: Social Work- SW attempted to meet pt and pt was out of room. BENY Mcwilliams Original Note: Social Work- SW attempted to meet with pt to complete SDOH. Pt has a room of family; SW deferred SDOH until a later time to allow pt time to visit with family. BENY Mcwilliams
[2024-08-09] MEDS: 0.9% Saline Lock 10 ML Syringe IV (12:27)
--- NOTE | 2024-08-09 13:03 | PCM.PRE.AN2 ---
ASA Classification* ASA Classification ASA Classification: 2 and E Assessment & Plan Anesthesia* Anesthesia Assessment Anesthesia Assessment: Discussed sedation and/or anesthesia options, risks, benefits, and alternatives with patient/parents/legal guardian/POA. Questions invited. The patient/parents/legal guardian/POA seems to understand and agrees to proceed with anesthesia plan. Reviewed the physical assessment, medical history, allergy history and patient home medications list prior to surgery/procedure/anesthetic and documented any changes. Performed airway and anesthesia risk assessments. Anesthesia Type Anesthesia Type: General Anesthesia Focused Assessment* Temperature: 98.1 F Pulse Rate: 68 Blood Pressure: 158/96 Respiratory Rate: 16 Pulse Ox: 99 Airway Assessment Mouth opens: >3 cm Mallampati Score: II Focused Labs Anesthesia Preop lab: CBC WBC 5.4 K/mm3 (4.4-11.0) 08/09/24 06:20 RBC 4.35 M/mm3 (4.2-5.4) 08/09/24 06:20 Hgb 12.9 g/dL (12.0-15.0) 08/09/24 06:20 Hct 40.4 % (37-47) 08/09/24 06:20 Plt Count 223 K/mm3 (150-450) 08/09/24 06:20 CHEMISTRY Potassium 4.0 mmol/L (3.5-5.1) 08/09/24 06:20 Sodium 142 mmol/L (136-145) 08/09/24 06:20 Magnesium 2.4 mg/dL (1.6-2.6) 05/24/21 05:40 Phosphorus 3.0 mg/dL (2.5-4.9) 05/24/21 05:40 BUN 21 mg/dL (7-18) H 08/09/24 06:20 Creatinine 0.81 mg/dL (0.55-1.02) 08/09/24 06:20 Glucose 91 mg/dL (74-106) 08/09/24 06:20 COAG PT 12.8 SECONDS (11.7-14.9) 05/24/21 13:23 Urine Test Negative Negative 10/27/19 06:56 Pre-Assessment Diagnosis/Proposed Procedure Planned Operative Procedure(s): cysto/laser/ureteroscope Anesthesia History 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 When Was Last Pacemaker Check QUESTION #4 FULL TEXT: You/Your Family Experience fever (hyperthermia) with Anesthesia Last Oral Intake Last Oral intake: Last Oral Intake NPO since 00:00 08/09/24 09:31 Meds taken in AM with sips of No 08/09/24 09:31 water? Meds patient instructed to take am of surgery PONV PONV - local truck driver: PONV - local truck driver Female HX of Motion Sickness HX of N/V After Surgery Non-Smoker Duration of Surgery greater than 60 minutes Number of Risk Factors PONV Score Height & Weight Height & Weight: Anesthesia: Height & Weight Height 5 ft 5 in 08/09/24 09:31 Weight: 78.613 kg 08/09/24 09:31 Body Mass Index (BMI) 28.8 08/09/24 09:31 Respiratory Assessment Respiratory Assessment - local truck driver: Respiratory Tract Infection Hx - local truck driver Hx Respiratory Tract Infection No 08/09/24 09:31 STOP Sleep Apnea STOP Sleep Apnea - local truck driver: STOP Sleep Apnea - local truck driver Hx Hypertension No 08/08/24 17:29 Hx Sleep Apnea No 08/08/24 17:29 CPAP BIPAP Do you snore loudly (louder Yes 08/08/24 17:29 than talking or can be heard Do you often feel tired/ Yes 08/08/24 17:29 fatigued/ sleepy during daytime? Has anyone observed you stop No 08/08/24 17:29 breathing during sleep? STOP Results Positive 08/08/24 17:29 QUESTION #5 FULL TEXT : Do you snore loudly (louder than talking or can be heard through closed doors)? 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 Specify any problems Hx of Preganancy in last 3 N/A 08/08/24 17:29 Months Nurse Filling Out Transfusion FSTEINER 08/08/24 17:29 & Questions: Date: 08/08/24 08/08/24 17:29 Time: 17:32 08/08/24 17:29 Patient unable to answer at this time (ie. confused, unrespo /Reproduction History /Reproductive History - local truck driver: /Reproductive Hx- local truck driver Hx Now No 08/09/24 09:31 Gestational Age (in weeks): EDC: Hx Hx Para Hx Section SAB No 08/09/24 09:31 Active Medications Active Medications: Current Medications Generic Name Dose Route Start Last Admin Trade Name Freq PRN Reason Stop Dose Admin Acetaminophen 650 mg 08/08/24 16:13 Acetaminophen 325 Mg Tablet PO Q6H PRN PRN Pain Score 1-10 Docusate Sodium 200 mg 08/08/24 22:00 08/09/24 08:48 Docusate Sodium 100 Mg Capsule PO Not Given BID [place] Sodium Chloride 100 mls @ 15 mls/hr 08/08/24 17:34 IV .Q6H40M PRN Saline Flush Sodium Chloride 100 mls @ 15 mls/hr 08/08/24 17:34 IV .Q6H40M PRN Additional IVPB Infusion Ketorolac Tromethamine 15 mg 08/08/24 16:13 08/08/24 22:56 Ketorolac 15 Mg/Ml Vial IV 08/10/24 16:16 15 mg Q6H PRN PRN Administration Pain Score 1-10 Morphine Sulfate 2 mg 08/08/24 16:13 08/09/24 12:26 Morphine 2 Mg/Ml Syringe IV 2 mg Q2H PRN Administration Pain Score 6-10 Oxycodone HCl 5 - 10 mg 08/08/24 16:13 Oxycodone 5 Mg Tablet PO Q6H PRN PRN Pain Score 4-10 Sodium Chloride 10 - 40 ml 08/08/24 17:34 08/09/24 12:27 0.9% Saline Lock 10 Ml Syringe IV 20 ml UD PRN Administration SALINE FLUSH PFSH Medical History Kidney stones Alcohol abuse SVT (supraventricular tachycardia) Migraines Pneumonia due to COVID-19 virus (05/2021) Kidney stones Non-smoker Essential (primary) hypertension HLD (hyperlipidemia) Left ureteral calculus Home Medications ?Medication ?Instructions ?Recorded ?Last Taken ?Type galcanezumab-gnlm 120 mg/mL 120 mg subcut QMONTH Check with 05/24/21 05/08/21 History subcutaneous syringe (Emgality) primary doctor rimegepant 75 mg disintegrating 75 mg PO DAILY PRN mirgraine 05/24/21 05/23/21 History tablet (Nurtec ODT) rizatriptan 10 mg tablet 10 mg PO UD migraine 08/08/24 Unknown History rosuvastatin 10 mg tablet 10 mg PO QHS 08/08/24 Unknown History sumatriptan succinate 50 mg tablet 50 mg PO UD 08/08/24 Unknown History Allergy/AdvReac Type Severity Reaction Status Date / Time No Known Allergies Allergy Verified 08/08/24 13:48 Surgical History History of appendectomy History of left heart catheterization (10/27/19) AVNRT (AV marshall re-entry tachycardia) Social History Smoking Status: Never smoker Review of Systems (Anesthesia) ROS Narrative System reviewed and no additional complaints, except as documented.
[2024-08-09] MEDS: 0.9% Normal Saline (1000mL) 1,000 ML 15 ML IV (13:49)
--- NOTE | 2024-08-09 15:54 | DCINST_ITS ---
Discharge Instructions Diet Discharge Diet: No restrictions DC O2, CPAP, BIPAP needs Additional Home O2 Discharge instructions: No Dressing / Incision Discharge Activity: Return to Normal Activity and May Not Drive (while taking narcotic pain medications.) Dressing / Incision Call your doctor if you observe: Fever of 101 or Higher Follow Up Care Please Follow Up With: Jerry Brothers MD When: Call [phone] for an appointment Test Results: Test results from this visit will be discussed in further detail at your follow- up appointment, if applicable. Discharge Plan Admission Admit Date/Time: 08/08/24 16:12 Primary Reason for Your Visit: laser stone, no stent Attending Provider: Jerry Brothers Primary Care Provider: Jey Arthur Discharge Orders/Prescriptions Prescriptions: New ciprofloxacin HCl [Cipro] 500 mg tablet 500 mg PO BID Qty: 6 0RF ibuprofen 600 mg tablet 600 mg PO Q6H PRN (Reason: pain) Qty: 20 0RF Continued Emgality Syringe 120 mg/mL syringe 120 mg SUBCUT QMONTH Patient Comments: INJECT THE CONTENTS OF 1 SYRINGE SUBCUTANEOUSLY ONCE A MONTH Nurtec ODT 75 mg tablet,disintegrating 75 mg PO DAILY PRN (Reason: mirgraine) Patient Comments: DISSOLVE 1 TABLET BY MOUTH ONCE DAILY NEEDED rizatriptan 10 mg tablet 10 mg PO UD sumatriptan succinate 50 mg tablet 50 mg PO UD rosuvastatin 10 mg tablet 10 mg PO QHS Referrals / Follow Up: Jey Arthur DO [Primary Care Provider] - Jerry Brothers MD [Med Staff - Active Staff] - Disposition Disposition (needs filled in before D/C Order can be placed): Home, Self Care
--- NOTE | 2024-08-09 15:54 | PCM.OPRPT ---
Operative Report (Standard) Operative Information Date of Procedure: 08/09/24 Pre-Operative Diagnosis: Distal left ureteral calculus with obstruction Post-Operative Diagnosis: The same Surgery/Procedure Performed: Cystoscopy, balloon dilation of the left ureter, left ureteroscopy laser lithotripsy of stone and basket of fragments no stent creative arts music therapist: No Type of Anesthesia: General RN Documented Start/Stop Times: Operation Date: 08/09/24 08:00 Case Time Into Pre-Op 08/09/24 13:05 Anesthesia Start 08/09/24 15:20 Into Room 08/09/24 15:20 Out of Pre-Op 08/09/24 15:20 Procedure End 08/09/24 15:50 Procedure Start Time: 15:36 Procedure Stop Time: 15:55 Select all DRAINS/GRAFTS/IMPLANTS that apply: None Estimated Blood Loss: 0 Specimen collected: No Description of surgery: This is a patient who presents to the hospital for treatment for an obstructing distal ureter calculi. I discussed with the patient how the surgery would be performed and we reviewed the risks and benefits of the surgery. The risk and benefits include the risk of failure to remove the stone completely and that the patient may need multiple procedures. We discussed the risk of an infection, the risk of bleeding. We discussed the very rare risk of serious complicated injury to the ureter. The patient understands that if the stone is not able to be removed safely that we may abort the procedure and place a stent. After full discussion and all questions address with the patient the consent form was signed the side was marked appropriately and the patient was taken back to the operating room for the procedure. The patient was taken back to the operating room. After induction of anesthesia by the anesthesiology team the patient was placed in dorsolithotomy position. The genitals were prepped and draped in usual sterile fashion. I went into the bladder with a 21 Swedish rigid cystourethroscope through the urethra. Upon entering the bladder I inspected the trigone the left and right ureteral orifice and the bladder itself. I then cannulated the ureteral orifice and advanced a 0.038 Glidewire up into the kidney. Then over the Glidewire I advanced a 5 Fr Ureteral catheter and performed a retrograde pyelogram with about 10cc of contrast, to delineate the anatomy and identify the stone location. Then a ureteral balloon dilator was advanced over the wire and the distal ureter was balloon dilated with a 12 Fr x 5cm balloon dilator. After 3 minutes of dilating the ureter the balloon was backloaded off the 0.038 glidewire then the safety wire was left in place. I then placed a second 0.038 Guidewire as a working wire and over the working 0.038 guidewire I went in with the susana rigide 7.5fr ureteroscope. I was able to go inside with the 7.5Fr susana rigid utereroscope and I pulled out the working guidewire and then through the 7.5 fr simirigid ureteroscope I engage the stone in the distal ureter with laser lithotripsy using a 270miron laser fiber with energy setting of 6 Hertz and 0.6 J until the stone was lasered into tiny little pieces that should pass on their own. A retrograde pyelogram was performed with 10cc of contrast and no extravasation of contrast or perforation was identified in the ureter there was some mild irritation of the ureter where the stone was located. I then backed out of the ureter left and removed the wire, all fragement were then extracted wiht basket and bladder drained. Surgical Findings: Stone in the distal left ureter lasered completely and allow small pieces all the fragments extracted no stent placed Complications Complications: No Admit VTE Documentation VTE Present on Admission: No VTE Mechan Device Prophylaxis: SCD's VTE Pharm Prophylaxis ordered?: No
--- NOTE | 2024-08-09 16:05 | PCM.POST.ANE ---
Anesthesia: Postop Eval I Current Vital Signs Temperature: 97 F Pulse Rate: 98 Blood Pressure: 139/91 Respiratory Rate: 16 Pulse Ox: 93 Oxygen Delivery Method: Nasal Cannula Oxygen Flow Rate (L/min): 2 Assessment Airway patent: Yes Spontaneous unlabored respirations: Yes Mental status: Awake and Calm nausea: No Vomiting: No Anesthesia Complication: No Fluid Hydration Crystalloid volume administer (ml): 800 Total IV fluid infused: 800 Progress Note Anesthesia document: Postop Eval 1 completed: Yes
--- NOTE | 2024-08-09 18:58 | POSTOPAN2_ITS ---
Anesthesia Postop Eval I Sum Postop Eval Completion status Anesthesia document: Postop Eval 1 completed: Yes Anesthesia Postop Eval I Summary Anesthesia Postop Eval I Summary: Anesthesia Postop Eval I: Assessment Summary Airway patent Yes 08/09/24 16:08 CURING PICKLING [email or web address] Spontaneous unlabored Yes 08/09/24 16:08 CURING PICKLING PACKERJANETH respirations Mental status Awake,Calm 08/09/24 16:08 CURING PICKLING [email or web address] nausea No 08/09/24 16:08 CURING PICKLING [email or web address] Vomiting No 08/09/24 16:08 CURING PICKLING PACKERJANETH Anesthesia Postop Eval I: Fluid Summary Crystalloid volume administer 800 08/09/24 16:08 CURING PICKLING [email or web address] (ml) Colloids volume administered ( ml) Blood Product volume administered (ml) Total IV fluid infused 800 08/09/24 16:08 ROBLES Anesthesia Postop Eval I: Summary Notes Anesthesia Complication No 08/09/24 16:08 ROBLES Anesthesia Complication Comment: Post-operative progress note Anesthesia: Postop Eval II Evaluation Mental status: Awake Pain Level: 0 nausea: No Vomiting: No
--- NOTE | 2024-08-09 18:58 | PCM.POSTANE2 ---
Anesthesia Postop Eval I Sum Postop Eval Completion status Anesthesia document: Postop Eval 1 completed: Yes Anesthesia Postop Eval I Summary Anesthesia Postop Eval I Summary: Anesthesia Postop Eval I: Assessment Summary Airway patent Yes 08/09/24 16:08 BIOMETRIC FINGERPRINTING [email or web address] Spontaneous unlabored Yes 08/09/24 16:08 BIOMETRIC FINGERPRINTING TECHNICIANJANETH respirations Mental status Awake,Calm 08/09/24 16:08 BIOMETRIC FINGERPRINTING [email or web address] nausea No 08/09/24 16:08 BIOMETRIC FINGERPRINTING [email or web address].ERICA Vomiting No 08/09/24 16:08 BIOMETRIC FINGERPRINTING TECHNICIANJANETH Anesthesia Postop Eval I: Fluid Summary Crystalloid volume administer 800 08/09/24 16:08 BIOMETRIC FINGERPRINTING [email or web address] (ml) Colloids volume administered ( ml) Blood Product volume administered (ml) Total IV fluid infused 800 08/09/24 16:08 ROBLES Anesthesia Postop Eval I: Summary Notes Anesthesia Complication No 08/09/24 16:08 ROBLES Anesthesia Complication Comment: Post-operative progress note Anesthesia: Postop Eval II Evaluation Mental status: Awake Pain Level: 0 nausea: No Vomiting: No
== END 2024-08-09 19:56 | disposition home or self-care (01) ==
LOC: ED 14:13 → MS3 16:23
PROVIDERS: Admitting Provider Urology; Emergency Provider Emergency Medicine; PCP Student in an Organized Health Care Education/Training Program; Visit Provider Urology
PROC: 0TJ98ZZ Inspection of Ureter, Via Natural or Artificial Opening Endoscopic (ICD-10-PCS; CPT 52352; principal; 2024-08-09 07:50)
DX: N13.2 Hydronephrosis with renal and ureteral calculous obstruction (principal); E78.5 Hyperlipidemia, unspecified; I10 Essential (primary) hypertension; Z79.899 Other long term (current) drug therapy
CPT/HCPCS: 52353; 00918; 36415; 74176; 76000; 80048; 81001; 85025; 87086; 87088; 94668; 96361; 96365; 96375; 96376; 99221; 99285; A4216; C1769; G0378; J0696; J2405